=== PATIENT | male | born 1965 | race Caucasian/White ===

== ENCOUNTER 2019-12-31 13:35 | Emergency (ER) | payer MEDICAID, SELFPAY ==
[2019-12-31 14:06] VITALS: BP 177/113; PULSE 85; RESP 14; TEMP 37.7; O2SAT 98; BMI 25.3
--- NOTE | 2019-12-31 15:45 | USCV_ITS ---
Bg Mccauley Age: 54 Gender: M : 1965 Exam Date: 12/31/2019 16:07 Ordering Phys: David Gregory DO Technologist: Elissa Ernandez Exam Location: [facility] – [place] Indication: BROWN SCALY ARMS HISTORY: Upper extremity swelling. PROCEDURES: Venous duplex imaging was performed in bilateral upper extremities. The following venous structures were evaluated: internal jugular vein, subclavian vein, axillary vein, and brachial veins. In addition, the basilic vein, cephalic vein, radial vein, and ulnar vein. Serial compression, augmentation maneuvers, and spectral Doppler flow evaluation were performed. FINDINGS: No DVT seen in any vessel studies. IV rests in rt Cephalic vein. Flow below site is good Echolucent areas are noted bilaterally in the subcutaneous plane CONCLUSIONS No evidence of venous thrombosis in the above-mentioned identifiable veins on both sides Features of fluid retention/edema in the subcutaneous plane Dr Sae Farmer MD FAC (Electronically Signed) Final Date: 31 December 2019 18:07 S
--- NOTE | 2019-12-31 15:45 | USCV_ITS ---
Bg Mccauley Age: 54 Gender: M : 1965 Exam Date: 12/31/2019 16:31 Ordering Phys: David Gregory DO Technologist: Elissa Ernandez [place] [facility] [place] Indication: BOTH ARM ARE DRY AND DISCOLORED Risk Factors: Unknown Previous Vascular Surgery: None Right BP: 130.00 / Left BP: 134.00 / RIGHT LEFT PSV PSV (cm/s) (cm/s) Waveform Waveform Triphasic 137.4 Subclavian Proximal 164.7 Triphasic Triphasic 77.2 Subclavian Distal 177.2 Triphasic Triphasic 92.1 Axillary 144.3 Triphasic Triphasic 61.5 Brachial Proximal 84.6 Triphasic Triphasic 86.5 Brachial Mid 108.6 Triphasic Triphasic 101.9 Brachial at AC 81.7 Triphasic Triphasic 56.3 Radial Proximal 53.8 Triphasic Triphasic 63.4 Radial Mid 39.0 Triphasic Biphasic 27.9 Radial at Wrist 81.6 Biphasic Triphasic 48.1 Ulnar Proximal 81.7 Triphasic Triphasic 52.9 Ulnar Mid 80.7 Triphasic Biphasic 41.3 Ulnar at Wrist 46.9 Biphasic 1.0 Radial/Brachial Index 1.0 .94 Ulnar/Brachial Index .92 FINDINGS RT RADIAL 130 RT ULNA 126 LT RADIAL 130 LT ULNA 124 CONCLUSIONS Normal arterial Doppler waveforms and Doppler flow velocities bilaterally Normal RBIs and UBIs bilaterally No significant obstruction in the upper extremity arteries, based on the above findings Dr Sae Farmer MD [facility] (Electronically Signed) Final Date: 31 December 2019 17:55 S
--- NOTE | 2019-12-31 15:48 | W.ED.GENADLT ---
HPI - General Adult General: Chief complaint: General Medical Stated complaint: arm discoloration Time Seen by Provider: 12/31/19 15:34 History of Present Illness: HPI narrative: Patient has redness, swelling, and severely dried skin from the distal upper arm to the fingertips on both sides. Patient states this started approximately 2-3 weeks ago. Patient has no idea of the etiology. He denies any injury. Onset (ago): week(s) Location: left, right and upper extremity Radiation: non-radiation Severity: severe Associated symptoms: Reports no associated symptoms Review of Systems General: Reports: 10 or more systems reviewed and unremarkable except in HPI and below PFSH ED PFSH: Social History Smoking and tobacco status: never smoked Alcohol intake: never Physical Exam HENMT: COMMON NORMALS: normocephalic HEAD & SCALP: normocephalic Neck/C-Spine: COMMON NORMALS: full ROM, no meningeal signs and no JVD Resp: COMMON NORMALS: normal respiratory effort, No use of accessory muscles and clear to auscultation bilaterally AUSCULTATION: clear to auscultation bilaterally Cardio: COMMON NORMALS: no JVD, regular rate and regular rhythm RATE: regular rate RHYTHM: regular rhythm GI: COMMON NORMALS: Normal to inspection, nondistended, normoactive bowel sounds present Extremity: COMMON NORMALS: full ROM NARRATIVE EXTREMITY EXAM: Both of the patient's upper extremities from the distal arm to the fingertips are red, crusted, and edematous. Neuro: MENINGEAL SIGNS: Yes no meningeal signs Skin: GENERAL SKIN EXAM: crusts, dry skin and erythema Course Vital Signs: Vital signs: Vital Signs Temperature 99.8 F H 12/31/19 14:06 Pulse Rate 85 12/31/19 14:06 Respiratory Rate 14 12/31/19 14:06 Blood Pressure 177/113 12/31/19 14:06 Pulse Oximetry 98 12/31/19 14:06 MDM - General Adult MDM Narrative: Medical decision making narrative: Patient's arms from where a short sleeve shirt or T-shirt which indent the tips of the fingers are red and very scaly with a straw colored crust. I believe the patient suffered a sunburn and either from a ruptured bulla or from scratching he got a secondary infection and she has been given Ancef in the ER. I'll write him a prescription for amoxicillin 500 mg. Also prescription for Bactroban ointment. Instructed the patient to return to the emergency room in 5 days so I can reevaluate his arms to make sure that the treatment is helping. Patient is instructed to return to the emergency room sooner if his symptoms increase or has any other problems. Lab Data: Labs: Lab Results 12/31/19 12/31/19 12/31/19 Range/Units 16:00 16:00 16:00 WBC 7.7 (4.0-10.0) 10^3/ uL RBC 4.89 (4.1-5.3) 10^6/u L Hgb 16.1 (11.7-16.6) g/dL Hct 48.3 (42.0-52.0) % MCV 98.8 H (80-94) fL MCH 32.9 (28.0-34.0) pg MCHC 33.3 (30.0-36.0) g/dL RDW 11.9 L (12.1-15.1) % Plt Count 279 (130-400) 10^3/c mm MPV 10.2 (7.4-10.4) fL Neut % (Auto) 68.9 % Lymph % (Auto) 17.9 % [place] % (Auto) 6.3 % Eos % (Auto) 6.3 % Baso % (Auto) 0.5 % Neut # (Auto) 5.3 (1.8-7.7) 10^3/u L Lymph # (Auto) 1.4 (0.8-4.8) 10^3/u L [place] # (Auto) 0.5 (0.2-0.9) 10^3/u L Eos # (Auto) 0.5 (0.0-0.8) 10^3/u L Baso # (Auto) 0.0 (0.0-0.1) 10^3/u L Nucleated RBC % (a uto) 0 % Nucleated RBCs # 0.0 /100WBC Sodium 139 (136-145) mmol/L Potassium 4.3 (3.5-5.1) mmol/L Chloride 102 (98-107) mmol/L Carbon Dioxide 25 (22-29) mmol/L Anion Gap 16.3 (5-19) BUN 6 (6-20) mg/dL Creatinine 0.7 (0.7-1.2) mg/dL GFR Calculation 117.5 (90-130) mL/min Glucose 113 (65-115) mg/dL Calculated Osmolal ity 285 (285-295) mOsm/k g Lactate 1.0 (0.5-2.2) mmol/L Calcium 9.5 (8.5-10.5) mg/dL Total Bilirubin 1.9 H (0.15-1.2) mg/dL AST 22 (0-40) U/L ALT 22 (0-41) U/L Alkaline Phosphata se 74 (40-130) IU/L Total Protein 7.2 (6.6-8.7) g/dL Albumin 4.4 (3.5-5.2) g/dL Globulin 2.8 (1.3-4.6) g/dL Imaging Data^: Other Imaging: My impression: No evidence of venous or arterial vascular occlusion Discharge Plan Discharge Patient Disposition: Home, Self-Care Clinical Impression: Impetigo Cellulitis Qualifiers: Site of cellulitis: extremity Site of cellulitis of extremity: upper extremity Laterality: unspecified laterality Qualified Code(s): L03.119 - Cellulitis of unspecified part of limb Condition: Stable Prescriptions: New amoxicillin 500 mg capsule 500 mg PO TID 10 Days Qty: 30 RF: 0 mupirocin 2 % ointment 1 applic TOPICAL TID Qty: 22 RF: 2 Discharge Orders: Discharge Order (Routine); Ordered 12/31/19 Ordered By: David Gregory Coding Level of Care Code ED Youth Services Specialist for g Fwd Exam Detailed
[2019-12-31] MEDS: ceFAZolin 1,000 MG in sodium chloride 0.9% (plus) 50 ML 100 MG IV (16:27)
[2019-12-31 16:35] LABS: Basophils % 0.5 %; Eosinophils # 0.5 10^3/uL (0.0-0.8); Eosinophils % 6.3 %; Hematocrit 48.3 % (42.0-52.0); Hemoglobin 16.1 g/dL (11.7-16.6); Lymphocytes # 1.4 10^3/uL (0.8-4.8); Lymphocytes % 17.9 %; Mean Corpuscular HGB Conc 33.3 g/dL (30.0-36.0); Mean Corpuscular Hemoglobin 32.9 pg (28.0-34.0); Mean Corpuscular Volume 98.8 fL (80-94); Mean Platelet Volume 10.2 fL (7.4-10.4); Monocytes # 0.5 10^3/uL (0.2-0.9); Monocytes % 6.3 %; Neutrophils # 5.3 10^3/uL (1.8-7.7); Neutrophils % 68.9 %; Nucleated Red Blood Cells % 0 %; Platelet Count 279 10^3/cmm (130-400); Red Blood Count 4.89 10^6/uL (4.1-5.3); Red Cell Distribution Width 11.9 % (12.1-15.1); White Blood Count 7.7 10^3/uL (4.0-10.0)
[2019-12-31 16:45] LABS: Alanine Aminotransferase 22 U/L (0-41); Albumin Level 4.4 g/dL (3.5-5.2); Alkaline Phosphatase 74 IU/L (40-130); Anion Gap 16.3 (5-19); Aspartate Amino Transferase 22 U/L (0-40); Blood Urea Nitrogen 6 mg/dL (6-20); Calcium 9.5 mg/dL (8.5-10.5); Carbon Dioxide 25 mmol/L (22-29); Chloride 102 mmol/L (98-107); Globulin 2.8 g/dL (1.3-4.6); Glomerular Filtration Rate 117.5 mL/min (90-130); Glucose 113 mg/dL (65-115); Osmolality Calculated 285 mOsm/kg (285-295); Potassium 4.3 mmol/L (3.5-5.1); Sodium 139 mmol/L (136-145); Total Bilirubin 1.9 mg/dL (0.15-1.2); Total Protein 7.2 g/dL (6.6-8.7)
--- NOTE | 2019-12-31 16:56 | PC.NURSE ---
US IN ROOM FOR EXAM
[2019-12-31 17:56] VITALS: BP 155/100; PULSE 80; RESP 20; O2SAT 98
== END 2019-12-31 17:57 | disposition home or self-care (01) ==
PROVIDERS: Emergency Provider Family Medicine
DX: L01.00 Impetigo, unspecified (principal); L03.119 Cellulitis of unspecified part of limb
CPT/HCPCS: 12345; 36415; 80053; 83605; 85025; 87040; 93930; 93970; 96365; 99282; 99283; J0690

== ENCOUNTER 2021-03-20 16:41 | Inpatient (IN) | payer MEDICAID, SELFPAY ==
[2021-03-20 16:42] VITALS: BP 152/78; PULSE 130; RESP 18; TEMP 36.4; O2SAT 97; BMI 29.8
[2021-03-20 16:55] VITALS: BP 154/82; PULSE 126; RESP 18; O2SAT 92
--- NOTE | 2021-03-20 17:13 | XRR_ITS ---
PROCEDURE INFORMATION: Exam: XR Right Tibia and Fibula Exam date and time: 03/20/2021 5:13 PM Age: 55 years old Clinical indication: Pain; Lower leg; Right; Additional info: Rule out osteo TECHNIQUE: Imaging protocol: XR Right tibia and fibula. Views: 2 views. COMPARISON: No relevant prior studies available. FINDINGS: Bones/joints: Normal. Soft tissues: Soft tissue swelling. Superficial soft tissue irregularities. XR/XR tibia fibula RT 2V [id number] IMPRESSION: Negative for osteomyelitis.
--- NOTE | 2021-03-20 17:13 | XRR_ITS ---
PROCEDURE INFORMATION: Exam: XR Right Foot Exam date and time: 03/20/2021 5:13 PM Age: 55 years old Clinical indication: Swelling, leg or foot; Patient HX: Chronic leg wounds x 6 months; Smell and drainage and maggots and flies present also; Additional info: Osteo? TECHNIQUE: Imaging protocol: XR Right foot. Views: 1 or 2 views. COMPARISON: CR (LOW EXM, ) 03/20/2021 5:28 PM FINDINGS: Bones/joints: There is no definite bony erosion or periostitis to suggest osteomyelitis. Bones are demineralized which limits evaluation. No evidence of acute fracture dislocation. Minimal degenerative changes. Posterior calcaneal enthesophyte. Soft tissues: There is generalized soft tissue swelling. This is greatest along the dorsal foot. XR/XR foot RT 2V [id number] IMPRESSION: Soft tissue edema without definite findings osteomyelitis.
--- NOTE | 2021-03-20 17:13 | XRR_ITS ---
PROCEDURE INFORMATION: Exam: XR Left Tibia and Fibula Exam date and time: 03/20/2021 5:13 PM Age: 55 years old Clinical indication: Pain; Lower leg; Left; Additional info: Rule out osteo TECHNIQUE: Imaging protocol: XR Left tibia and fibula. Views: 2 views. COMPARISON: No relevant prior studies available. FINDINGS: Bones/joints: Normal. Soft tissues: Soft tissue swelling. Superficial soft tissue irregularities. Possible ulcerations. XR/XR tibia fibula LT 2V 11542 IMPRESSION: Negative for osteomyelitis.
--- NOTE | 2021-03-20 17:13 | XRR_ITS ---
PROCEDURE INFORMATION: Exam: XR Left Foot Exam date and time: 03/20/2021 5:13 PM Age: 55 years old Clinical indication: Pain; Foot; Left; Additional info: Oste? TECHNIQUE: Imaging protocol: XR Left foot. Views: 1 or 2 views. COMPARISON: CR (LOW EXM, ) 03/20/2021 5:34 PM FINDINGS: Bones/joints: No acute fractures. Joint spaces have anatomic alignment. No focal lytic bone lesion. No focal osseous erosion identified. No significant joint space arthritis. Soft tissues: Multiple nailbed deformities. Generalized soft tissue swelling. XR/XR foot LT 2V [id number] IMPRESSION: No convincing plain film radiographic evidence of osteomyelitis.
[2021-03-20 17:28] LABS: Basophils # 0.1 10^3/uL (0.0-0.1); Basophils % 0.8 %; Eosinophils # 0.3 10^3/uL (0.0-0.8); Eosinophils % 3.3 %; Hematocrit 44.9 % (42.0-52.0); Hemoglobin 14.4 g/dL (11.7-16.6); Lymphocytes # 1.6 10^3/uL (0.8-4.8); Lymphocytes % 15.3 %; Mean Corpuscular HGB Conc 32.1 g/dL (30.0-36.0); Mean Corpuscular Hemoglobin 31.3 pg (28.0-34.0); Mean Corpuscular Volume 97.6 fl (80-94); Mean Platelet Volume 8.7 fL (7.4-10.4); Monocytes # 0.9 10^3/uL (0.2-0.9); Monocytes % 8.8 %; Neutrophils # 7.28 10^3/uL (1.8-7.7); Neutrophils % 71.6 %; Nucleated Red Blood Cells % 0 %; Platelet Count 418 10^3/cmm (130-400); Red Cell Distribution Width 12.1 % (12.1-15.1); White Blood Count 10.2 10^3/uL (4.0-10.0)
[2021-03-20 17:50] LABS: Anion Gap 15.8 (5-19); Blood Urea Nitrogen 12 mg/dL (6-20); C Reactive Protein 89.9 mg/L (0.0-4.9); Calcium 8.3 mg/dL (8.5-10.5); Carbon Dioxide 24 mmol/L (22-29); Chloride 103 mmol/L (98-107); Creatinine Clr Calc Pharmacy 145.8425; Glomerular Filtration Rate 117.1 mL/min (90-130); Glucose 100 mg/dL (65-115); Osmolality Calculated 288 mOsm/kg (285-295); Potassium 3.8 mmol/L (3.5-5.1); Sodium 139 mmol/L (136-145)
[2021-03-20 18:13] LABS: Lactate (Lactic Acid level) 2.1 mmol/L (0.5-2.2)
[2021-03-20] MEDS: vancomycin 1,000 MG in sodium chloride 0.9% 250 ML 250 MG IV (18:18)
[2021-03-20] MEDS: sodium chloride 0.9% 1,000 ML 999 ML IV (18:18)
[2021-03-20 18:23] LABS: Erythrocyte Sedimentation Rate 75 mm/hr (0-10)
--- NOTE | 2021-03-20 18:29 | W.ED.GENADLT ---
HPI - General Adult General: Chief complaint: Extremity Problem,Nontraumatic Stated complaint: RIGHT LEG PAIN Time Seen by Provider: 03/20/21 16:59 History of Present Illness: HPI narrative: Patient is a 55-year-old male with a history of chronic leg wounds who presents the emergency room after his landlord alerted EMS and patient was unable to get out of bed. Patient says that he has not been been receiving any wound care in his legs which have been present for 6 months now. FPatient cannot over the last time he has had wound care on his legs. Patient denies any fever/chills, reports pain in the legs, drainage and smell as well as maggots and flies. Onset:chronic Duration:ongoing Location:home Severity:severe Review of Systems Narrative: Constitutional: No fever, no chills. HEENT: No vision changes CV: No chest pain, no palpitations PULM: no cough, no dyspnea. GI: No abdominal pain, no N/V/D. : No dysuria MSKEL: No muscle pain SKIN: No new rashes, no lesions. NEURO: No headache, no focal weakness. HEME: No visible bruises PSYCH: Normal mood PFSH ED PFSH: Medical History (Updated 03/20/21 @ 19:44 by Brittani Ac MD) No pertinent family history Surgical History (Updated 03/20/21 @ 19:44 by Brittani Ac MD) No pertinent past surgical history Social History Smoking and tobacco status: never smoked Alcohol intake: never Physical Exam Narrative: EXAM NARRATIVE: Head: Atraumatic Eyes: PERRL, conjunctiva without injection ENT: Mucous membrane moist NECK: Supple, ROM intact LUNGS: LCTAB, no crackles/rhonchi CV: Tacyhcardia ABDOMEN: Soft, nontender in all quadrants EXTREMITY: 3+ LE swelling with festering wounds with maggots and flies in the RLE above the ankle SKIN: No rash or erythema NEURO: Awake and alert, no focal motor deficits PSYCH: Normal mood and affect Course Vital Signs: Vital signs: Vital Signs Temperature 97.6 F 03/20/21 16:42 Pulse Rate 115 H 03/20/21 20:54 Respiratory Rate 18 03/20/21 19:21 Blood Pressure 138/75 03/20/21 20:54 Pulse Oximetry 95 03/20/21 20:54 MDM - General Adult MDM Narrative: Medical decision making narrative: 55-year-old male presents emergency room with chronic right lower extremity wound infection. On exam, patient is hemodynamically stable, afebrile noted to be tachycardic to the 130s. No suspicion of acute alcohol withdrawal as patient does not have any signs of tremor. Patient denies any history of alcohol use. Likely source of tachycardia secondary to underlying bacteremia/chronic wound infection. WBC of 10.2. CRP is elevated. No signs of osteomyelitis on x-ray and evaluation. Given smell of Pseudomonas, will cover with Vanco and Zosyn today. Patient received IVF, HR improved to the 120s. Case discussed with Dr. Hensley from Podiatry who will follow patient. Disposition: Admission Lab Data: Labs: Lab Results 03/20/21 03/20/21 03/20/21 Range/Units 17:13 17:13 17:13 WBC 10.2 H (4.0-10.0) 10^3/ uL RBC 4.60 (4.1-5.3) 10^6/u L Hgb 14.4 (11.7-16.6) g/dL Hct 44.9 (42.0-52.0) % MCV 97.6 H (80-94) fl MCH 31.3 (28.0-34.0) pg MCHC 32.1 (30.0-36.0) g/dL RDW 12.1 (12.1-15.1) % Plt Count 418 H (130-400) 10^3/c mm MPV 8.7 (7.4-10.4) fL Neut % (Auto) 71.6 % Lymph % (Auto) 15.3 % [place] % (Auto) 8.8 % Eos % (Auto) 3.3 % Baso % (Auto) 0.8 % Neut # (Auto) 7.28 (1.8-7.7) 10^3/u L Lymph # (Auto) 1.6 (0.8-4.8) 10^3/u L [place] # (Auto) 0.9 (0.2-0.9) 10^3/u L Eos # (Auto) 0.3 (0.0-0.8) 10^3/u L Baso # (Auto) 0.1 (0.0-0.1) 10^3/u L Nucleated RBC % (a uto) 0 % Nucleated RBCs # 0.0 /100WBC ESR 75 H (0-10) mm/hr PT (12.1-14.9) SECO NDS INR (0.8-1.2) APTT (23.9-36.7) SECO NDS Sodium 139 (136-145) mmol/L Potassium 3.8 (3.5-5.1) mmol/L Chloride 103 (98-107) mmol/L Carbon Dioxide 24 (22-29) mmol/L Anion Gap 15.8 (5-19) BUN 12 (6-20) mg/dL Creatinine 0.7 (0.7-1.2) mg/dL GFR Calculation 117.1 (90-130) mL/min Glucose 100 (65-115) mg/dL Calculated Osmolal ity 288 (285-295) mOsm/k g Lactate (0.5-2.2) mmol/L Calcium 8.3 L (8.5-10.5) mg/dL C-Reactive Protein 89.9 H (0.0-4.9) mg/L 03/20/21 03/20/21 Range/Units 17:17 17:34 WBC (4.0-10.0) 10^3/ uL RBC (4.1-5.3) 10^6/u L Hgb (11.7-16.6) g/dL Hct (42.0-52.0) % MCV (80-94) fl MCH (28.0-34.0) pg MCHC (30.0-36.0) g/dL RDW (12.1-15.1) % Plt Count (130-400) 10^3/c mm MPV (7.4-10.4) fL Neut % (Auto) % Lymph % (Auto) % [place] % (Auto) % Eos % (Auto) % Baso % (Auto) % Neut # (Auto) (1.8-7.7) 10^3/u L Lymph # (Auto) (0.8-4.8) 10^3/u L [place] # (Auto) (0.2-0.9) 10^3/u L Eos # (Auto) (0.0-0.8) 10^3/u L Baso # (Auto) (0.0-0.1) 10^3/u L Nucleated RBC % (a uto) % Nucleated RBCs # /100WBC ESR (0-10) mm/hr PT 13.50 (12.1-14.9) SECO NDS INR 1.00 (0.8-1.2) APTT 26.1 (23.9-36.7) SECO NDS Sodium (136-145) mmol/L Potassium (3.5-5.1) mmol/L Chloride (98-107) mmol/L Carbon Dioxide (22-29) mmol/L Anion Gap (5-19) BUN (6-20) mg/dL Creatinine (0.7-1.2) mg/dL GFR Calculation (90-130) mL/min Glucose (65-115) mg/dL Calculated Osmolal ity (285-295) mOsm/k g Lactate 2.1 (0.5-2.2) mmol/L Calcium (8.5-10.5) mg/dL C-Reactive Protein (0.0-4.9) mg/L Imaging Data^: Other Imaging: Radiologist's impression: [address] [id number] ReportSigned Patient: Bg Mccauley #: [id number]: 1965Acct#:[id number]/Sex: 55 / MADM Date: 03/20/21Loc: ERRoom/Bed:Attending Dr: Ordering Provider/Ordering MD: Sunil Carreno MD Date of Service: 03/20/21 Procedure(s): XR tibia fibula RT 2V 96393 Accession Number(s): [id number] Report Number: [id number] PROCEDURE INFORMATION: Exam: XR Right Tibia and Fibula Exam date and time: 03/20/2021 5:13 PM Age: 55 years old Clinical indication: Pain; Lower leg; Right; Additional info: Rule out osteo TECHNIQUE: Imaging protocol: XR Right tibia and fibula. Views: 2 views. COMPARISON: No relevant prior studies available. FINDINGS: Bones/joints: Normal. Soft tissues: Soft tissue swelling. Superficial soft tissue irregularities. XR/XR tibia fibula RT 2V [id number] IMPRESSION: Negative for osteomyelitis. Dictated By:Judy Estevez By:Judy Estevez Date/Time:03/20/213DD/ [address] [address]PHet ReportSigned Patient: Bg Mccauley #: [id number]: 1965Acct#:[id number]/Sex: 55 / MADM Date: 03/20/21Loc: ERRoom/Bed:Attending Dr: Ordering Provider/Ordering MD: Sunil Carreno MD Date of Service: 03/20/21 Procedure(s): XR tibia fibula LT 2V 62781 Accession Number(s): [id number] Report Number: [id number] PROCEDURE INFORMATION: Exam: XR Left Tibia and Fibula Exam date and time: 03/20/2021 5:13 PM Age: 55 years old Clinical indication: Pain; Lower leg; Left; Additional info: Rule out osteo TECHNIQUE: Imaging protocol: XR Left tibia and fibula. Views: 2 views. COMPARISON: No relevant prior studies available. FINDINGS: Bones/joints: Normal. Soft tissues: Soft tissue swelling. Superficial soft tissue irregularities. Possible ulcerations. XR/XR tibia fibula LT 2V [id number] IMPRESSION: Negative for osteomyelitis. Dictated By:Judy Estevez By:Judy Estevez Date/Time:03/20/21D/ 20 Discharge Plan Discharge Patient Disposition: Admitted As Inpatient Clinical Impression: Complicated wound infection Condition: Stable Coding Level of Care Code ED Shell Sieve Operator for She Balderas
[2021-03-20 18:48] LABS: Partial Thromboplastin Time 26.1 SECONDS (23.9-36.7)
[2021-03-20 19:21] VITALS: BP 148/77; PULSE 122; RESP 18; O2SAT 94
[2021-03-20] MEDS: piperacillin-tazobactam 4.5 GM in sodium chloride 0.9% (plus) 50 ML IV (19:36)
--- NOTE | 2021-03-20 19:41 | P.HP_ITS ---
Providers/Chief Complaint Chief Complaint: RIGHT LEG PAIN History of Present Illness 54-year-old with a past medical history significant for chronic bilateral lower extremity venous stasis ulcers with ongoing areas of infection who is presenting to hospital for evaluation. Patient. Was noted to have extensive wounds with scaly erythematous lesion. Patient noted fever, chills increasing edema. Patient is a very poor historian however in review of records he was seen at urgent care on 12/30 during which time he was referred to ER however it appears patient did not follow instructions. Laboratory workup on arrival to emergency room showed a WBC of 10.2, hemoglobin of 14.4, hematocrit 44.9 and platelet count of 418. ESR 75 INR 1. Sodium 139, potassium 3.8, chloride 103, bicarb 24, BUN 12 and creatinine of 0.7. CRP of 89.9. Multiple x-rays were taken a bilateral lower extremities elevation did not show any evidence of acute fracture or osteomyelitis. Inferior occurs patient did have a venous and arterial study performed on 12/30 both of which did not show any evidence of acute DVT or evidence of peripheral vascular disease. Initial vital signs on arrival showed a blood pressure 177/113, temperature of 99.8?, heart rate of 80, respiratory rate of 20 and oxygen saturation 98% on room air. Review of Systems General: Reports: 10 or more systems reviewed and unremarkable except in HPI and below Medications/Allergies Home Medications Medication Instructions Recorded Confirmed Last Taken Type No Known Home Medications 03/20/21 03/20/21 Unknown History Allergies Allergy/AdvReac Type Severity Reaction Status Date / Time No Known Allergies Allergy Verified 12/31/19 13:04 PFSH Acute PFSH: Medical History (Updated 03/20/21 @ 19:44 by Brittani Ac MD) No pertinent family history Surgical History (Updated 03/20/21 @ 19:44 by Brittani Ac MD) No pertinent past surgical history Social History Smoking and tobacco status: never smoked Alcohol intake: never Vitals/I&O/Wt Last Vital Signs Temp 97.6 F 03/20/21 16:42 Pulse 122 H 03/20/21 19:21 Resp 18 03/20/21 19:21 BP 148/77 03/20/21 19:21 Pulse Ox 94 03/20/21 19:21 Weight last 48 hrs Weight 99.79 kg Physical Exam Narrative: EXAM NARRATIVE: general : Deshelved appearance HEENT: Grossly unremarkable CVS: NSR Chest: Non-labored respiration Abd: Non-distended Ext: Picture noted below- patient approved photo. Foul smelling. Data : 03/20/21 17:13 03/20/21 17:13 Micro: Microbiology 03/20/21 17:28 Blood Culture - Preliminary Blood SPECIMEN COLLECTED 03/20/21 17:34 Blood Culture - Preliminary Blood SPECIMEN COLLECTED A&P Assessment and plan (1) Lower extremity cellulitis: Status: Acute (2) Chronic venous stasis dermatitis of both lower extremities: Status: Acute (3) Complicated wound infection: Status: Acute Additional A&P Information Patient is noted to have extensive bilateral lower extremity wounds with surrounding cellulitis. continue on vancomycin and Zosyn pharmacy to dose. Blood cultures x2 drawn in ER. Obtain wound cultures from areas of draining purulent fluid. Will likely require general surgery consultation with possible need for debridement. Tylenol, [place], morphine p.r.n. for pain control. Repeat CBC in a.m.. Procalcitonin a.m.. Will obtain echocardiogram. May require gentle diuresis. Labs currently stable. Repeat CMP in a.m.. Will initiate Lovenox 40 mg subcu daily for DVT prophylaxis. Attestations Medical Necessity Statement*: Patient will likely require a 2 midnight stay in hospital for evaluation and treatment of bilateral lower extremity cellulitis with extensive wounds. Time Spent in Patient Care: Greater than 35 minutes (>than 50% of time spent in counselling and/or direct pt care on unit) . Coding Level of Care Code Acute Inspector Soldering for She Balderas Diagnoses Lower extremity cellulitis L03.119 Chronic venous stasis dermatitis of both lower extremities I87.2 Complicated wound infection T14.8XXA; L08.9
[2021-03-20] MEDS: enoxaparin 40 mg/0.4 mL Syringe SUBCUT (20:16)
[2021-03-20 20:54] VITALS: BP 138/75; PULSE 115; O2SAT 95
[2021-03-20 21:21] LABS: SARS Covid-2 Antigen Negative (Negative)
[2021-03-20 21:40] VITALS: BMI 26.7
[2021-03-20 22:00] VITALS: PULSE 108
--- NOTE | 2021-03-20 22:13 | PC.PHAR ---
Vancomycin is dosed at 1250mg IVPB every 8 hours to produce a predicted trough level of 13.01 (population based pharmacokinetic analysis). A trough level has been ordered from the lab to be obtained before the fourth dose to confirm and adjust if needed. The Zosyn is dosed at 3.375gm IVPB every 8 hours on basis of creatinine clearance of 145.84, each dose to be infused over 4 hours per extended infusion protocol.
[2021-03-21] VITALS (11 sets, daily range): BP systolic 112–142; BP diastolic 62–71; PULSE 90–109; RESP 16–18; TEMP 36.4–37.1; O2SAT 95–99
--- NOTE | 2021-03-21 00:47 | PC.NURSE ---
Skin Assessment Patient got to floor at 21:10 from ER. Patient had open wound on right lower leg with live maggots crawling in it and on the skin around it. Bilateral lower extremities have dry scaling skin and pitting edema. Bilateral arms have dry scaling skin on them. Used sterile water to clean all four extremities and get off as much dry skin as possible. Used sterile water to wash out maggots yet more were coming out of the wound after washing them out. Physician contacted regarding if there is anything else that needs to be done. Physician said the only thing that could be done tonight is place chucks under the legs. If maggots continue to come out may wrap joe with loose coban around the right leg to try to keep them under control.
[2021-03-21] MEDS: vancomycin 1,250 MG/250 ML PIGGYBACK 250 MG IV ×3 (02:08→18:46)
[2021-03-21] MEDS: piperacillin-tazobactam 3.375 GM in sodium chloride 0.9% (plus) 50 ML IV ×3 (03:25→20:07)
[2021-03-21] MEDS: pantoprazole DR 40 mg Tablet PO (09:15)
[2021-03-21] MEDS: HYDROcodone-acetaminophen 5-325 mg Tablet 1 TAB PO (09:26)
[2021-03-21 09:50] LABS: Basophils # 0.1 10^3/uL (0.0-0.1); Basophils % 0.9 %; Eosinophils # 0.4 10^3/uL (0.0-0.8); Eosinophils % 5.1 %; Hematocrit 37.3 % (42.0-52.0); Hemoglobin 11.8 g/dL (11.7-16.6); Lymphocytes # 1.3 10^3/uL (0.8-4.8); Lymphocytes % 17.8 %; Mean Corpuscular HGB Conc 31.6 g/dL (30.0-36.0); Mean Corpuscular Hemoglobin 30.8 pg (28.0-34.0); Mean Corpuscular Volume 97.4 fl (80-94); Mean Platelet Volume 8.4 fL (7.4-10.4); Monocytes # 0.7 10^3/uL (0.2-0.9); Monocytes % 8.9 %; Neutrophils # 5.02 10^3/uL (1.8-7.7); Neutrophils % 66.9 %; Nucleated Red Blood Cells % 0 %; Platelet Count 336 10^3/cmm (130-400); Red Blood Count 3.83 10^6/uL (4.1-5.3); Red Cell Distribution Width 12.1 % (12.1-15.1); White Blood Count 7.5 10^3/uL (4.0-10.0)
[2021-03-21 10:19] LABS: Lactic Sepsis W/Reflex 0.8 mmol/L (0.5-2.2)
[2021-03-21 10:30] LABS: Procalcitonin 0.22 ng/mL (0-0.5); Thyroid Stimulating Hormone 2.44 uIU/mL (0.27-4.20)
[2021-03-21 10:41] LABS: Alanine Aminotransferase 9 U/L (0-41); Albumin Level 2.2 g/dL (3.5-5.2); Alkaline Phosphatase 63 IU/L (40-130); Aspartate Amino Transferase 15 U/L (0-40); Blood Urea Nitrogen 10 mg/dL (6-20); Calcium 7.8 mg/dL (8.5-10.5); Carbon Dioxide 25 mmol/L (22-29); Chloride 105 mmol/L (98-107); Chol HDL Ratio 2.92 mg/dL (1.0-5.00); Cholesterol 114 mg/dL (0-200); Globulin 3.6 g/dL (1.3-4.6); Glomerular Filtration Rate 139.9 mL/min (90-130); Glucose 85 mg/dL (65-115); HDL Cholesterol 39 mg/dL (60-100); LDL Cholesterol Calculated 63 mg/dL (50-129); LDL HDL Ratio 1.62 RATIO (0.00-3.22); Magnesium 1.9 mg/dL (1.7-2.3); Osmolality Calculated 286 mOsm/kg (285-295); Sodium 139 mmol/L (136-145); Total Bilirubin 0.9 mg/dL (0.15-1.2); Total Protein 5.8 g/dL (6.6-8.7); Triglycerides 58 mg/dL (0-150)
[2021-03-21 11:59] LABS: Estmated Average Glucose 88; Hemoglobin A1C 4.7 % (4.0-6.0)
[2021-03-21] MEDS: morphine 4 mg/mL SDV 1 mL 2 MG IVP (13:18)
--- NOTE | 2021-03-21 17:35 | PM.PN ---
Subjective Subjective: Interval history: Patient continues require significant wound care. Noted below. No fevers. Medications: Reviewed: Yes Vitals/I&O/Wt Last Vital Signs Temp 98.2 F 03/21/21 15:25 Pulse 106 H 03/21/21 15:25 Resp 16 03/21/21 15:25 BP 112/65 03/21/21 15:25 Pulse Ox 99 03/21/21 15:25 03/21/21 03/21/21 03/21/21 06:59 14:59 22:59 Intake Total 1590.208 / 1590.208 900 / 900 Output Total 500 / 500 325 / 325 Balance 1090.208 / 1090.208 900 / 900 -325 / 575 Weight last 48 hrs Weight 83.098 kg Weight 89.584 kg Weight 99.79 kg Physical Exam Narrative: EXAM NARRATIVE: general : Deshelved appearance HEENT: Grossly unremarkable CVS: NSR Chest: Non-labored respiration Abd: Non-distended Ext: Picture noted below- patient approved photo. Foul smelling. 03/21 pics 03/20 pics Data : 03/21/21 09:32 03/21/21 09:32 Micro: Microbiology 03/20/21 23:40 Gram Stain - Final Leg - Right 03/20/21 17:28 Blood Culture - Preliminary Blood SPECIMEN COLLECTED 03/20/21 17:34 Blood Culture - Preliminary Blood SPECIMEN COLLECTED A&P Assessment and plan (1) Lower extremity cellulitis: Status: Acute (2) Chronic venous stasis dermatitis of both lower extremities: Status: Acute (3) Complicated wound infection: Status: Acute Additional A&P Information Continue on vancomycin and Zosyn pharmacy to dose. Blood cultures x2 - NGTD. F/u on Wound cultures from areas of draining purulent fluid. Will likely require general surgery consultation with possible need for debridement. Tylenol, [place], morphine p.r.n. for pain control. Repeat CBC in a.m.. Follow up on ECHO May Consider adding lasix PRN Labs currently stable. Repeat CMP in a.m.. Continue Lovenox 40 mg subcu daily for DVT prophylaxis. Continue Protonix 40 mg PO daily for GI ppx Attestations Medical Necessity Statement*: Require further hospitalization for management of extensive bilateral lower extremity Infectious Time Spent in Patient Care: Greater than 35 minutes (>than 50% of time spent in counselling and/or direct pt care on unit). 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
--- NOTE | 2021-03-21 18:43 | P.CONIM_ITS ---
Providers/Reason For Consult Consulting Physician/Specialty*: Oral Hensley D.P.M. podiatry Reason for Consult*: Lower extremity venous ulceration and cellulitis Attending Physician: Brittani Ac History of Present Illness History of Present Illness Bg Mccauley is a 55 year old male admitted to hospital service for bilateral lower extremity cellulitis and venous stasis ulceration to the right lower extremity. Patient states that several days prior to this hospitalization he was ambulatory, his landlord checked on him and saw him in bed unable to get out and called 911 he came to the ED via EMS. Patient states that he lives at home alone however he does have family in the area. He endorses some tenderness to the right leg wound states he is able to move and lift his leg relatively comfortably. States that he has had swelling and complications with leg sores ongoing for many months. Patient denies any subjective nausea, vomiting, fever, chills, shortness of breath or chest pain. Review of Systems General: Reports: 10 or more systems reviewed and unremarkable except in HPI and below Const: Denies: fever(s) or chills Card: Denies: chest pain or palpitations Resp: Denies: productive cough GI: Denies: abdominal pain, nausea or vomiting : Denies: flank pain Musc: Reports: extremity swelling, joint pain, joint stiffness, limited range of motion and deformity Skin/Breast: Reports: erythema, skin tenderness, skin swelling, sores, lesions, changes in skin color, nail changes and change in hair Neuro: Reports: numbness in extremities, sensory changes and difficulty walking Psych: Denies: suicidal ideation Nathan/Lymph: Denies: easy bruising Meds/Allergies Home Medications and Allergies Home Medications Medication Instructions Recorded Confirmed Last Taken Type No Known Home Medications 03/20/21 03/20/21 Unknown History Allergies Allergy/AdvReac Type Severity Reaction Status Date / Time No Known Allergies Allergy Verified 12/31/19 13:04 Current Medications Current Medications Generic Name Dose Route Start Last Admin Trade Name Freq PRN Reason Stop Dose Admin Hydrocodone Bitart/Acetaminophen 1 tab 03/20/21 19:36 03/21/21 09:26 Hydrocodone-Acetaminophen 5-325 Mg Tablet PO 1 tab Q4H PRN Administration MODERATE TO SEVERE PAIN Enoxaparin Sodium 40 mg 03/20/21 19:45 03/20/21 20:16 Enoxaparin 40 Mg/0.4 Ml Syringe SUBCUT 40 mg Q24H GENEVA Administration Piperacillin Sod/Tazobactam 50 mls @ 12.5 mls/hr 03/21/21 02:00 03/21/21 1 4:43 Sod 3.375 gm/ Sodium Chloride IV Infused Q8H GENEVA Infusion Protocol As Directed Vancomycin/PEG/NADA/Lysine/Water 1,250 mg in 250 mls @ 250 mls/hr 03/21/21 03:00 03/21/21 13:11 Vancocin IV Infused Q8H GENEVA Infusion Morphine Sulfate 2 mg 03/20/21 19:36 03/21/21 13:18 Morphine 4 Mg/Ml Sdv 1 Ml IVP 2 mg Q4H PRN Administration SEVERE PAIN Pantoprazole Sodium 40 mg 03/21/21 09:00 03/21/21 09:[address] 40 Mg Tablet PO 40 mg DAILY GENEVA Administration PFSH Acute PFSH: Medical History (Updated 03/21/21 @ 19:27 by Oral Hensley DPM) No pertinent family history Surgical History (Updated 03/20/21 @ 19:44 by Brittani Ac MD) No pertinent past surgical history Social History Smoking and tobacco status: never smoked Alcohol intake: never Vitals/I&O/Wt Last Vital Signs Temp 98.2 F 03/21/21 15:25 Pulse 106 H 03/21/21 15:25 Resp 16 03/21/21 15:25 BP 112/65 03/21/21 15:25 Pulse Ox 99 03/21/21 15:25 03/21/21 03/21/21 03/21/21 06:59 14:59 22:59 Intake Total 1590.208 / 1590.208 900 / 900 Output Total 500 / 500 325 / 325 Balance 1090.208 / 1090.208 900 / 900 -325 / 575 Weight last 48 hrs Weight 183 lb 3.2 oz Weight 197 lb 8 oz Weight 220 lb Physical Exam Narrative: EXAM NARRATIVE: GENERAL: Patient is alert and oriented ?3 and in no acute distress. The following is a focused bilateral lower extremity exam. VASCULAR: Dorsalis pedis palpable +2 left and right foot. Posterior tibial kathy brii palpable +1 left and right likely secondary to edema. Capillary refill time less than 3 seconds to the distal hallux bilaterally. +2 pitting edema tested at the lower one third of the anterior tibial crest at the left lower extremity and +3 pitting edema to the right. Decreased pedal hair growth. NEUROLOGICAL: Protective sensation intact 5/10 sites, tested with [place] Kati monofilament to bilateral feet. DERMATOLOGICAL: Venous ulceration to the right leg in a circumferential linear fashion this is a grade 2 ulcer with serous drainage, no tucker purulence. Erythema to the bilateral lower extremities right greater than left also rubor present. Dystrophic toenail is x10. Dry flaky skin on bilateral lower extremities. MUSCULOSKELETAL: Tenderness with debridement of right leg wound. Muscle strength the lower extremities are 5/5 in all 3 cardinal planes to the bilateral foot and ankle. Ankle joint dorsiflexion to neutral. Data Micro: Micro: Microbiology 03/20/21 17:28 Blood Culture - Pr eliminary Blood NEGATIVE TO MALISSA E 03/20/21 17:34 Blood Culture - Pr eliminary Blood NEGATIVE TO MALISSA E 03/20/21 23:40 Gram Stain - Final Leg - Right A&P Assessment and plan (1) Lower extremity cellulitis: Status: Acute Qualifiers: Laterality: right Qualified Code(s): L03.115 - Cellulitis of right lower limb (2) Chronic venous stasis dermatitis of both lower extremities: Status: Acute (3) PVD (peripheral vascular disease): Status: Acute 55-year-old male with venous ulceration and cellulitis to the right lower extremity White blood count 10.2 with elevated CRP and sed rate 89.9 and 75 respectively on admission 03/20/2021. Ankle-brachial index 1.0 left and right 12/31/2019. Radiology report on left and right foot and tib-fib x-rays negative for osteomyelitis. Patient is afebrile with no leukocytosis today 03/21/2021. He is responding well to empiric IV antibiotics. Patient's edema is likely a mixed etiology of venous insufficiency and lymphedema. -Performed debridement of right venous ulceration down to and including subcutaneous tissue and fat layer, patient tolerated with some minor discomfort, no pain post debridement subjectively. -Applied bilateral lower extremity Unna boot wraps for venous insufficiency with ulceration. Base layer wound dressing to the right leg Maxorb AG followed by Unna flex paste wrap, Kerlix, cast padding and Coban. -I do not anticipate any surgical debridement during this hospitalization, patient's wounds are stable and responding to antibiotic therapy -From podiatry standpoint in regards to his lower extremity wounds he is okay for discharge would recommend oral antibiotics on discharge. -Recommend wound care referral and follow-up in wound care clinic moving forward would also benefit from home health to assist with dressing supplies and lymphedema wraps -His current lymphedema wraps applied 03/21/2021 by myself can remain in place for the next 3 days, should he still remain hospitalized beyond 3 days I will change them while inpatient. I appreciate the opportunity to participate in patient's care please contact me with any questions cell phone [phone]. 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
[2021-03-21] MEDS: enoxaparin 40 mg/0.4 mL Syringe SUBCUT (20:07)
[2021-03-22] VITALS (9 sets, daily range): BP systolic 118–156; BP diastolic 62–71; PULSE 78–94; RESP 15–19; TEMP 36.8–37.4; O2SAT 95–99
[2021-03-22 03:14] LABS: Basophils # 0.1 10^3/uL (0.0-0.1); Basophils % 0.7 %; Eosinophils # 0.7 10^3/uL (0.0-0.8); Eosinophils % 9.7 %; Hematocrit 31.7 % (42.0-52.0); Hemoglobin 10.1 g/dL (11.7-16.6); Lymphocytes # 1.7 10^3/uL (0.8-4.8); Lymphocytes % 22.6 %; Mean Corpuscular HGB Conc 31.9 g/dL (30.0-36.0); Mean Corpuscular Hemoglobin 31.5 pg (28.0-34.0); Mean Corpuscular Volume 98.8 fl (80-94); Mean Platelet Volume 8.8 fL (7.4-10.4); Monocytes # 0.8 10^3/uL (0.2-0.9); Monocytes % 9.9 %; Neutrophils # 4.28 10^3/uL (1.8-7.7); Neutrophils % 56.7 %; Nucleated Red Blood Cells % 0 %; Platelet Count 308 10^3/cmm (130-400); Red Blood Count 3.21 10^6/uL (4.1-5.3); Red Cell Distribution Width 12.2 % (12.1-15.1); White Blood Count 7.6 10^3/uL (4.0-10.0)
[2021-03-22 03:27] LABS: Vancomycin Trough 21.7 ug/mL (10-15)
[2021-03-22 03:28] LABS: Alanine Aminotransferase 6 U/L (0-41); Albumin Level 2.1 g/dL (3.5-5.2); Alkaline Phosphatase 57 IU/L (40-130); Aspartate Amino Transferase 10 U/L (0-40); Blood Urea Nitrogen 15 mg/dL (6-20); Calcium 7.5 mg/dL (8.5-10.5); Carbon Dioxide 25 mmol/L (22-29); Chloride 107 mmol/L (98-107); Globulin 2.6 g/dL (1.3-4.6); Glomerular Filtration Rate 117.1 mL/min (90-130); Glucose 96 mg/dL (65-115); Osmolality Calculated 289 mOsm/kg (285-295); Sodium 139 mmol/L (136-145); Total Bilirubin 0.4 mg/dL (0.15-1.2); Total Protein 4.7 g/dL (6.6-8.7)
--- NOTE | 2021-03-22 03:49 | PC.PHAR ---
Vancomycin trough before four doses at 1250mg IVPB every 8 hours is 21.7. Dosage is reduced to 1250mg IVPB every 12 hours with another trough ordered before the fourth dose at this reduced rate.
[2021-03-22] MEDS: piperacillin-tazobactam 3.375 GM in sodium chloride 0.9% (plus) 50 ML IV ×3 (04:04→22:42)
--- NOTE | 2021-03-22 05:27 | PC.NURSE ---
Shift Note Frequent safety and comfort rounds continue. Orders and/or nursing care completed as indicated. Patient monitored for response to intervention and treatment(s). Education provided includes side effects and usage of lovenox. Patient verbalized understanding. patient rested well throughout this shift and denied any pain to bilateral lower extremities. Patient is currently resting comfortably in bed watching television. Will continue to monitor.
--- NOTE | 2021-03-22 06:00 | USCV_ITS ---
Bg Mccauley Age: 55 Gender: M : 1965 Exam Date: 03/21/2021 10:22 Ordering Phys: Brittani Ac MD Technologist: Elissa Ernandez Exam Location: [facility] [place] Indication: LEGS SWELLING BP: 129 / 63 HR: 87 Rhythm: Sinus Technical Quality: Adequate MEASUREMENTS (Male / Female) Normal Values 2D ECHO LV Diastolic Diameter PLAX 4.3 cm 4.2 - 5.9 / 3.9 - 5.3 cm LV Systolic Diameter PLAX 2.5 cm LV Chamber Size 3.2 cm IVS Diastolic Thickness 1.1 cm 0.6 - 1.0 / 0.6 - 0.9 cm IVS Systolic Thickness 1.4 cm LVPW Diastolic Thickness 1.2 cm 0.6 - 1.0 / 0.6 - 0.9 cm LVPW Systolic Thickness 1.4 cm RV Chamber Size 2.7 cm LVOT Diameter 2.1 cm LV Ejection Fraction 2D Teich 71.7 % LV Ejection Fraction MOD 2C 44.5 % LV Ejection Fraction 2C AL 45.5 % LA Diameter 3.2 cm LA Width 3.0 cm LA Height 3.3 cm RA Width 3.5 cm RA Height 3.4 cm Aorta at Sinotubular Diameter 3.1 cm M-MODE LV Diastolic Diameter MM 5.8 cm 4.2 - 5.9 / 3.9 - 5.3 cm LV Systolic Diameter MM 4.3 cm LV Ejection Fraction MM Teich 51.4 % IVS Diastolic Thickness MM 0.9 cm 0.6 - 1.0 / 0.6 - 0.9 cm IVS Systolic Thickness MM 1.3 cm LVPW Diastolic Thickness MM 1.0 cm 0.6 - 1.0 / 0.6 - 0.9 cm LVPW Systolic Thickness MM 1.7 cm Aortic Annulus Diameter 3.5 cm LA Ao Ratio MM 0.7 MV E Point Septal Separation 0.5 cm DOPPLER AV Peak Velocity 140.0 cm/s LVOT Peak Velocity 103.0 cm/s AV Area Cont Eq vti 2.9 cm squared AV Area Cont Eq pk 2.5 cm squared MV Area PHT 6.5 cm squared Mitral E to A Ratio 1.0 MV E' Velocity 49.5 cm/s Mitral E to MV E' Ratio 13.1 Mitral E to LV E' Lateral Ratio 15.2 Mitral E to LV E' Septal Ratio 11.6 TR Peak Velocity 196.9 cm/s TR Peak Gradient 15.5 mmHg TR Mean Velocity 140.3 cm/s TR Mean Gradient 8.8 mmHg TR Velocity Time Integral 43.3 cm TV Peak E Velocity 87.0 cm/s Right Atrial Pressure 3.0 mmHg Pulmonary Artery Systolic Pressu 18.5 mmHg PV Peak Velocity 60.0 cm/s RV Acceleration Time 0.1 s RV Ejection Time 0.4 s RV AcT/ET 0.3 FINDINGS Left Ventricle Normal left ventricular size. LV systolic function is mildly reduced with EF of 45-50%. Mild global hypokinesis is noted. Grade 2 diastolic dysfunction Right Ventricle The right ventricle is normal in size and function. Right Atrium The right atrium is normal in size. Left Atrium The left atrium is normal in size. Mitral Valve Structurally normal mitral valve without significant stenosis or prolapse. There is no mitral regurgitation. Aortic Valve Structurally normal aortic valve without significant sclerosis or stenosis. There is no aortic regurgitation. Tricuspid Valve Structurally normal tricuspid valve without significant stenosis or regurgitation. Insufficient TR jet to calculate RVSP Pulmonic Valve Structurally normal pulmonic valve without significant stenosis. There is no pulmonic regurgitation. Pericardium Normal pericardium without effusion. Aorta Normal ascending aorta dimension. CONCLUSIONS LV systolic function is midlly reduced with EF of 45-50% Grade 2 diastolic dysfunction No significant valvular heart disease No comparison studies are available Michael Street MD (Electronically Signed) Final Date: 22 March 2021 12:11 S
[2021-03-22] MEDS: pantoprazole DR 40 mg Tablet PO (08:10)
--- NOTE | 2021-03-22 20:17 | PM.PN ---
Subjective Subjective: Interval history: Patient continues require significant wound care. Noted below. No fevers. Medications: Reviewed: Yes Vitals/I&O/Wt Last Vital Signs Temp 98.5 F 03/22/21 19:49 Pulse 84 03/22/21 19:49 Resp 18 03/22/21 19:49 BP 131/71 03/22/21 19:49 Pulse Ox 96 03/22/21 19:49 03/22/21 03/22/21 03/22/21 06:59 14:59 22:59 Intake Total 50 / 1680 530 / 530 50 / 580 Output Total 600 / 1075 250 / 250 200 / 450 Balance -550 / 605 280 / 280 -150 / 130 Weight last 48 hrs Weight 83.098 kg Weight 89.584 kg Data : 03/22/21 02:33 03/22/21 02:33 Micro: Microbiology 03/20/21 23:40 Gram Stain - Final Leg - Right Wound Culture - Preliminary Gram Negative Rods 03/20/21 17:28 Blood Culture - Preliminary Blood NEGATIVE TO DATE 03/20/21 17:34 Blood Culture - Preliminary Blood NEGATIVE TO DATE A&P Assessment and plan (1) Lower extremity cellulitis: Status: Acute Qualifiers: Laterality: right Qualified Code(s): L03.115 - Cellulitis of right lower limb (2) Chronic venous stasis dermatitis of both lower extremities: Status: Acute (3) Complicated wound infection: Status: Acute (4) Congestive heart failure due to cardiomyopathy: Status: Acute (5) Morbid obesity: Status: Acute (6) Lymphedema: Status: Acute Additional A&P Information Cellulitis: X-rays negative for osteomyelitis. Appreciate Dr. Hensley's recommendation. Blood cultures negative for now, wound cultures growing gram-negative rods. For now continue with vancomycin and Zosyn. Will change antibiotics as per culture results. For most likely patient would need 7 days of antibiotics. Lymphedema wraps. LEONA done in December 2019 was within normal limits. Mixed congestive heart failure: Echocardiogram done shows an EF of 45 to 50% with grade 2 diastolic dysfunction with global hypokinesia. Currently on room air. No acute exacerbation. Check proBNP in a.m. Start on Lasix 40 mg oral twice daily. Given new finding of low EF cannot rule out ischemia. N.p.o. after midnight, Lexiscan in a.m. A1c 4.7, lipid panel results appreciated. TSH within normal limits We will start patient on low-dose lisinopril 5 mg oral daily. If blood pressure elevated will try to add beta-rafaela. Full code. Continue Lovenox 40 mg subcu daily for DVT prophylaxis. Continue Protonix 40 mg PO daily for GI ppx Discharge planning: Patient will most likely need antibiotics for 7 days. Depending on the culture results we will try to see if he can transition over to oral. Patient would need outpatient wound care and lymphedema wraps.Case discussed with case management. Given multiple requirements and social discord we will try to get home health but if not possible we will send a referral to LTAC as well due to multiple wound care needs and possible prolonged antibiotics. Patient has an appointment with Dr. Marvin. Attestations Medical Necessity Statement*: Patient requires further hospitalization for management of cellulitis due to gram-negative rods, new congestive heart failure and evaluation while safe discharge planning is sought Time Spent in Patient Care: Greater than 35 minutes (>than 50% of time spent in counselling and/or direct pt care on unit). 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
[2021-03-22] MEDS: enoxaparin 40 mg/0.4 mL Syringe SUBCUT (22:40)
[2021-03-23] VITALS (7 sets, daily range): BP systolic 118–141; BP diastolic 67–77; PULSE 69–100; RESP 14–17; TEMP 36.5–37.1; O2SAT 95–100
[2021-03-23] MEDS: vancomycin 1,250 MG/250 ML PIGGYBACK 250 MG IV ×2 (02:49→16:02)
--- NOTE | 2021-03-23 05:55 | PC.NURSE ---
Shift Note Frequent safety and comfort rounds continue. Orders and/or nursing care completed as indicated. Patient monitored for response to intervention and treatment(s). Patient rested well throughout the night without complaint. Patient is currently resting comfortably in bed. Will continue to monitor.
[2021-03-23] MEDS: piperacillin-tazobactam 3.375 GM in sodium chloride 0.9% (plus) 50 ML IV ×2 (06:31→21:11)
[2021-03-23 07:31] LABS: Alanine Aminotransferase 7 U/L (0-41); Albumin Level 2.1 g/dL (3.5-5.2); Alkaline Phosphatase 67 IU/L (40-130); Anion Gap 9.7 (5-19); Aspartate Amino Transferase 10 U/L (0-40); Blood Urea Nitrogen 9 mg/dL (6-20); Calcium 7.6 mg/dL (8.5-10.5); Carbon Dioxide 26 mmol/L (22-29); Chloride 107 mmol/L (98-107); Globulin 3.2 g/dL (1.3-4.6); Glomerular Filtration Rate 139.9 mL/min (90-130); Glucose 83 mg/dL (65-115); Osmolality Calculated 286 mOsm/kg (285-295); Potassium 3.7 mmol/L (3.5-5.1); Sodium 139 mmol/L (136-145); Total Bilirubin 0.4 mg/dL (0.15-1.2); Total Protein 5.3 g/dL (6.6-8.7)
--- NOTE | 2021-03-23 07:39 | ECG_ITS ---
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 The perfusion scan will be documented separately. DATA: Baseline heart rate was 86 beats per minute. Baseline blood pressure was 140/73 millimeters of mercury. Target heart rate was 165. Maximum heart rate achieved was 126. which was 76 % of the predicted target heart rate. Maximum blood pressure was 143/76 millimeters of mercury. The reason for ending the test was completion of the protocol. The patient did not experience any symptoms. ELECTROCARDIOGRAM: BASELINE: Sinus rhythm. Normal axis. Old anterolateral wall myocardial infarction otherwise, no ST-T changes suggestive of ischemia noted. No arrhythmia noted. EXERCISE: After Lexiscan injection, no ST-T changes suggestive of ischemic noted. No arrhythmia noted. CONCLUSION: Please note due to baseline abnormality of the EKG specificity and sensitivity of the EKG portion of LexiScan MIBI stress test will be low 1. EKG not suggestive of ischemia 2. Lexiscan injection unremarkable. 3. Perfusion scan will be documented separately. Electronically Signed On 03-24-2021 21:20:31 CDT by RAJANI GIMENEZ [email or web address]
[2021-03-23] MEDS: regadenoson 0.4 Mg/5 ml Syringe IVP (08:45)
[2021-03-23] MEDS: pantoprazole DR 40 mg Tablet PO (10:34)
[2021-03-23] MEDS: FUROsemide 40 mg Tablet PO (10:35)
[2021-03-23] MEDS: lisinopril 5 mg Tablet PO (10:35)
--- NOTE | 2021-03-23 16:55 | PM.PN ---
Subjective Subjective: Interval history: No acute events overnight. Has remained hemodynamically stable and afebrile. Denies any nausea, vomiting, headache. Denies any shortness of breath. Today morning seen post Lexiscan. States he is hungry and asking for food. Various discharge planning including possible discharge to LTAC versus home health were discussed. Patient verbalized understanding and is open to both options. Medications: Reviewed: Yes Vitals/I&O/Wt Last Vital Signs Temp 97.7 F 03/23/21 12:00 Pulse 81 03/23/21 12:00 Resp 17 03/23/21 12:00 BP 131/75 03/23/21 12:00 Pulse Ox 100 03/23/21 12:00 03/23/21 03/23/21 03/23/21 06:59 14:59 22:59 Intake Total 300 / 880 50 / 50 Output Total 550 / 1200 300 / 300 Balance -250 / -320 -250 / -250 Physical Exam Narrative: EXAM NARRATIVE: GENERAL: Patient is alert and oriented ?3 and in no acute distress. The following is a focused bilateral lower extremity exam. Cardiovascular: S1-S2 regular, no tachycardia Soft pansystolic murmur at apex, no gallop Pulmonary: Normal vesicular breath sounds bilaterally, good equal air entry bilaterally. Abdomen: Soft, nontender, no organomegaly, bowel sounds regular. Neurological: AOx3, moving all limbs. VASCULAR: Dorsalis pedis palpable +2 lef. t and right foot. Posterior tibial arteries palpable +1 left and right likely secondary to edema. Capillary refill time less than 3 seconds to the distal hallux bilaterally. +2 pitting edema tested at the lower one third of the anterior tibial crest at the left lower extremity and +3 pitting edema to the right. Decreased pedal hair growth. NEUROLOGICAL: Protective sensation intact 5/10 sites, tested with [place] Kati monofilament to bilateral feet. DERMATOLOGICAL: Venous ulceration to the right leg in a circumferential linear fashion this is a grade 2 ulcer with serous drainage, no tucker purulence. Erythema to the bilateral lower extremities right greater than left also rubor present. Dystrophic toenail is x10. Dry flaky skin on bilateral lower extremities. MUSCULOSKELETAL: Tenderness with debridement of right leg wound. Muscle strength the lower extremities are 5/5 in all 3 cardinal planes to the bilateral foot and ankle. Ankle joint dorsiflexion to neutral. Data : 03/22/21 02:33 03/23/21 06:38 Micro: Microbiology 03/20/21 23:40 Gram Stain - Final Leg - Right Wound Culture - Preliminary Gram Negative Rods Gram Negative Rods#2 Staphylococcus aureus A&P Assessment and plan (1) Lower extremity cellulitis: Status: Acute Qualifiers: Laterality: right Qualified Code(s): L03.115 - Cellulitis of right lower limb (2) Chronic venous stasis dermatitis of both lower extremities: Status: Acute (3) Complicated wound infection: Status: Acute (4) Congestive heart failure due to cardiomyopathy: Status: Acute (5) Morbid obesity: Status: Acute (6) Lymphedema: Status: Acute Additional A&P Information Cellulitis: X-rays negative for osteomyelitis. Appreciate Dr. Hensley's recommendation. Blood cultures negative for now. Wound cultures now growing 2 gram-negative's and staph aureus. Discussed with Dr. Hensley skin sen. These are not OR cultures. Most likely skin sen. MRSA pending. For now continue with vancomycin and Zosyn. Most likely patient would need at least 14 days of antibiotics. Lymphedema wraps. LEONA done in December 2019 was within normal limits. Mixed congestive heart failure: Echocardiogram done shows an EF of 45 to 50% with grade 2 diastolic dysfunction with global hypokinesia. Currently on room air. No acute exacerbation. Lexiscan negative for acute ischemia. Continue with Lasix 40 mg oral daily, lisinopril 5 mg oral daily. Will uptitrate medication or add carvedilol depending on the blood pressures. A1c 4.7, lipid panel results appreciated. TSH within normal limits Full code. Continue Lovenox 40 mg subcu daily for DVT prophylaxis. Continue Protonix 40 mg PO daily for GI ppx Discharge planning: Patient will most likely need antibiotics for 7 days. Depending on the culture results we will try to see if he can transition over to oral. Patient would need outpatient wound care and lymphedema wraps.Case discussed with case management. Given multiple requirements and social discord we will try to get home health but if not possible we will send a referral to LTAC as well due to multiple wound care needs and possible prolonged antibiotics. Patient has an appointment with Dr. Marvin. Attestations Medical Necessity Statement*: Requires further hospitalization for cellulitis, new mixed congestive heart failure from nonischemic cardiomyopathy while safe discharge planning is sought. Time Spent in Patient Care: Greater than 35 minutes (>than 50% of time spent in counselling and/or direct pt care on unit). 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
--- NOTE | 2021-03-23 20:36 | NMCV_ITS ---
NM radha perf SPECT r/s* [id number] Bg Mccauley Age: 55 Gender: M : 1965 Exam Date: 03/23/2021 07:36 Ordering Phys: Marvin Govea MD Technologist: WENDY Gallardo Exam Location: [facility] Indications: RIGHT LEG PAIN STRESS TEST Please see separate stress test report in [facility] for full findings IMAGE PROTOCOL Rest/Stress 1 Lexiscan Day Radiopharmaceutical Dose (mCi) Administration Site Administered by Rest: Tc-99m 11.0 IV WENDY Kumari Sestamibi Stress:Tc-99m 32.9 IV WENDY Kumari Sestamibi Rest: 23-Mar-2021 60 Discovery 630 Stress: 23-Mar-2021 30 Discovery 630 0.4mg Lexiscan. Supine position only as patient was unable to lay prone. SPECT RESULTS Technical Quality: Excellent Raw Data Analysis: Normal Image Corrections: No attenuation or motion correction applied Summed Stress Score: 0 Summed Rest Score: 1 Summed Difference Score: 0 PERFUSION FINDINGS Fairly uniform myocardial tracer uptake. Patchy areas of decreased tracer uptake were noted around the left ventricular apex. No significant reversibility was noted FUNCTIONAL RESULTS (calculated via Gated SPECT) Stress Image LV EF (%): 54 Stress EDV (mL):94 TID: 1 Stress ESV (mL):43 FUNCTIONAL FINDINGS: Segmental wall motion analysis revealing no gross wall motion normalities. IMPRESSIONS 1. Myocardial perfusion imaging revealing patchy areas of persistent decreased tracer uptake in the apical region, most likely are present attrition artifacts. 2. Normal LV ejection fraction of 54%. 3. LV wall motion analysis revealing no gross wall motion normalities. 4. Normal LV volume. No significant coronary ischemia, based on the above findings Dr Sae Farmer MD [facility] (Electronically Signed) Final Date: 23 March 2021 11:46 S
[2021-03-23] MEDS: enoxaparin 40 mg/0.4 mL Syringe SUBCUT (21:10)
[2021-03-23 21:53] LABS: Quest SARS-CoV-2 RNA NOT DETECTED (NOT DETECTED)
[2021-03-24] VITALS: BP 126/73; PULSE 78; RESP 16; TEMP 36.7; O2SAT 97
[2021-03-24] MEDS: vancomycin 1,250 MG/250 ML PIGGYBACK 250 MG IV (03:45)
[2021-03-24 04:00] VITALS: BP 148/81; PULSE 81; RESP 16; TEMP 37.1; O2SAT 96
--- NOTE | 2021-03-24 05:30 | PM.PN ---
Subjective Subjective: Interval history: Patient seen bedside this morning for lower extremity dressing changes, denies any acute events overnight, denies any pain, patient denies any subjective nausea, vomiting, fever, chills, shortness of breath or chest pain. Vitals/I&O/Wt Last Vital Signs Temp 98.8 F 03/24/21 04:00 Pulse 81 03/24/21 04:00 Resp 16 03/24/21 04:00 BP 148/81 03/24/21 04:00 Pulse Ox 96 03/24/21 04:00 03/23/21 03/23/21 03/24/21 14:59 22:59 06:59 Intake Total 50 / 50 250 / 300 50 / 350 Output Total 300 / 300 1300 / 1600 400 / 2000 Balance -250 / -250 -1050 / -1300 -350 / -1650 Physical Exam Narrative: EXAM NARRATIVE: Patient is alert and oriented ?3 and in no acute distress. The following is a focused bilateral lower extremity exam. VASCULAR: Dorsalis pedis palpable +2 left and right foot. Posterior tibial arteries palpable +1 left and right likely secondary to edema. Capillary refill time less than 3 seconds to the distal hallux bilaterally. +1 pitting edema tested at the lower one third of the anterior tibial crest at the left lower extremity and +3 pitting edema to the right. Decreased pedal hair growth. NEUROLOGICAL: Protective sensation intact 5/10 sites, tested with [place] Kati monofilament to bilateral feet. DERMATOLOGICAL: Venous ulceration to the right leg in a circumferential linear fashion this is a grade 2 ulcer with serous drainage, no tucker purulence. Healthy granular wound bed with epithelialized margin, no purulence or erythema at right leg ulcer. Erythema to the bilateral lower extremities right greater than left also rubor present. Dystrophic toenail is x10. Dry flaky skin on bilateral lower extremities. MUSCULOSKELETAL: Tenderness with debridement of right leg wound. Muscle strength the lower extremities are 5/5 in all 3 cardinal planes to the bilateral foot and ankle. Ankle joint dorsiflexion to neutral. Data : 03/22/21 02:33 03/23/21 06:38 Micro: Microbiology 03/20/21 23:40 Gram Stain - Final Leg - Right Wound Culture - Preliminary Gram Negative Rods Gram Negative Rods#2 Staphylococcus aureus A&P Assessment and plan (1) Lower extremity cellulitis: Status: Acute Qualifiers: Laterality: right Qualified Code(s): L03.115 - Cellulitis of right lower limb (2) Chronic venous stasis dermatitis of both lower extremities: Status: Acute (3) Complicated wound infection: Status: Acute (4) Congestive heart failure due to cardiomyopathy: Status: Acute (5) Morbid obesity: Status: Acute (6) Lymphedema: Status: Acute -Improved lower extremity edema and significant improvement to right leg wound. Has had a percent granulation tissue and epithelialized margin, no acute signs of infection. -Performed bilateral lower extremity dressing changes. Applied bilateral lower extremity Unna boot wraps for venous insufficiency with ulceration. Base layer wound dressing to the right leg Maxorb AG followed by Unna flex paste wrap, Kerlix, cast padding and Coban. -From podiatry standpoint in regards to his lower extremity wounds he is okay for discharge would recommend oral antibiotics on discharge. -Recommend wound care referral and follow-up in wound care clinic moving forward would also benefit from home health to assist with dressing supplies and lymphedema wraps -Podiatry will continue to follow while inpatient should he remain will continue to do dressing changes every 3 days. I appreciate the opportunity to participate in patient's care please contact me with any questions cell phone [phone]. 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
[2021-03-24] MEDS: piperacillin-tazobactam 3.375 GM in sodium chloride 0.9% (plus) 50 ML IV ×2 (05:33→13:07)
[2021-03-24 06:00] VITALS: BMI 24.7
--- NOTE | 2021-03-24 07:17 | PC.NURSE ---
DRESSING CHANGE: PHYSICIAN AT BEDSIDE TO CHANGE THE LYMPHEDEMA WRAPS TO BLE. WOUND BED CLEANED WITH STERILE SALINE, DRIED, AND COVERED WITH GAUZE, KERLEX, AND COBAN TO THE LOWER LEFT LEG. PATIENT TOLERATED WELL. CHANGES TO BE DONE EVERY 3 DAYS PER PHYSICIAN.
[2021-03-24 08:00] VITALS: BP 144/76; PULSE 77; RESP 18; TEMP 36.4; O2SAT 97
[2021-03-24] MEDS: FUROsemide 40 mg Tablet PO (09:40)
[2021-03-24] MEDS: lisinopril 5 mg Tablet PO (09:40)
[2021-03-24] MEDS: pantoprazole DR 40 mg Tablet PO (09:40)
--- NOTE | 2021-03-24 11:06 | PM.TDS ---
Transfer Summary Providers Date of Admission: 03/20/21 21:34 Date of Discharge: 03/24/21 Attending Provider at Admission: Brittani Ac Attending Provider at Transfer: Marvin Govea MD Consults: Podiatry: Dr. Hensley Anticipated Date of Transfer: Anticipated date of transfer: 03/24/21 Receiving Facility & Provider: Receiving Provider: [Dr. Cota] Receiving facility: [[facility]] Diagnoses at Discharge Discharge Diagnosis (1) Lower extremity cellulitis: Status: Acute Qualifiers: Laterality: right Qualified Code(s): L03.115 - Cellulitis of right lower limb (2) Chronic venous stasis dermatitis of both lower extremities: Status: Acute (3) Complicated wound infection: Status: Acute (4) Congestive heart failure due to cardiomyopathy: Status: Acute Permanent problem details: Mixed systolic and diastolic (5) Morbid obesity: Status: Acute (6) Lymphedema: Status: Acute (7) Malnourished: Status: Acute Reason for Visit Reason for Visit: RIGHT LEG PAIN Hospital Course Hospital Course Bg Mccauley is a 55 year old male admitted to hospital service for bilateral lower extremity cellulitis and venous stasis ulceration to the right lower extremity. Patient states that several days prior to this hospitalization he was ambulatory, his landlord checked on him and saw him in bed unable to get out and called 911 he came to the ED via EMS. Patient states that he lives at home alone however he does have family in the area. He endorses some tenderness to the right leg wound states he is able to move and lift his leg relatively comfortably. States that he has had swelling and complications with leg sores ongoing for many months. Patient denies any subjective nausea, vomiting, fever, chills, shortness of breath or chest pain. Patient was admitted to the hospital for management of bilateral lower extremity cellulitis. Podiatry was consulted. Osteomyelitis was ruled out by x-rays. He was started on broad-spectrum antibiotics and lymphedema wraps and he responded well to the treatment. Wound cultures grew Morganella, providentia and MRSA with sensitivities as below. Patient during hospitalization remained on vancomycin and Zosyn. Echocardiogram was done which showed global LV hypokinesia with new mixed congestive heart failure. Ischemic cardiomyopathy was ruled out with negative Lexiscan. Going forward patient needs antibiotics for at least 10 more days as per the culture sensitivities along with extensive and aggressive wound care and lymphedema wraps. Patient is a high risk of failure to treatment because of nutritional deficits. Patient needs extensive physical therapy along with all as well. Because of all the requirements. Discharge planning were discussed with the patient and LTAC was proposed. Patient agreed for the same. Patient is being discharged in hemodynamically stable condition to long-term acute facility for aggressive wound care and lymphedema wrap along with IV antibiotics for 10 more days. Physical Exam Narrative: EXAM NARRATIVE: GENERAL: Patient is alert and oriented ?3 and in no acute distress. The following is a focused bilateral lower extremity exam. Cardiovascular: S1-S2 regular, no tachycardia Soft pansystolic murmur at apex, no gallop Pulmonary: Normal vesicular breath sounds bilaterally, good equal air entry bilaterally. Abdomen: Soft, nontender, no organomegaly, bowel sounds regular. Neurological: AOx3, moving all limbs. VASCULAR: Dorsalis pedis palpable +2 lef. t and right foot. Posterior tibial arteries palpable +1 left and right likely secondary to edema. Capillary refill time less than 3 seconds to the distal hallux bilaterally. +2 pitting edema tested at the lower one third of the anterior tibial crest at the left lower extremity and +3 pitting edema to the right. Decreased pedal hair growth. NEUROLOGICAL: Protective sensation intact 5/10 sites, tested with Percy Kati monofilament to bilateral feet. DERMATOLOGICAL: Venous ulceration to the right leg in a circumferential linear fashion this is a grade 2 ulcer with serous drainage, no tucker purulence. Erythema to the bilateral lower extremities right greater than left also rubor present. Dystrophic toenail is x10. Dry flaky skin on bilateral lower extremities. MUSCULOSKELETAL: Tenderness with debridement of right leg wound. Muscle strength the lower extremities are 5/5 in all 3 cardinal planes to the bilateral foot and ankle. Ankle joint dorsiflexion to neutral. TS Data Data Completed and Pending: Completed Studies During Hospitalization Category Date Time Status Sestamibi Stress Test Request Emilia ne Exams 03/23/21 07:39 Draft XR foot LT 2V 736 20 Stat Exams 03/20/21 17:13 Completed XR foot RT 2V 736 20 Stat Exams 03/20/21 17:13 Completed XR tibia fibula L T 2V 62110 Stat Exams 03/20/21 17:13 Completed XR tibia fibula R T 2V 24224 Stat Exams 03/20/21 17:13 Completed NM radha perf SPECT r/s* [id number] Routin e Nuc Med 03/23/21 20:36 Completed CV. echo complete * [id number] Routine Ultrasound 03/22/21 06:00 Completed Pending at discharge Category Date Time Status Sestamibi Stress Test Request Emilia ne Exams 03/22/21 20:35 Stop Req Blood Culture Sta t Lab 03/20/21 17:28 Results Vancomycin Trough Timed Lab 03/24/21 14:00 Ordered Labs from last 24 hours 03/22/21 03/20/21 08:00 20:59 SARS-CoV-2 RNA (RT -PCR) Not detected Misc Test Referenc e See comment Addt'l Data from Hospital Stay: Laboratory Results WBC 7.6 10^3/uL (4.0- 10.0) 03/22/21 02:33 RBC 3.21 10^6/uL (4.1 -5.3) L 03/22/21 02:33 Hgb 10.1 g/dL (11.7-1 6.6) L 03/22/21 02:33 Hct 31.7 % (42.0-52.0 ) L 03/22/21 02:33 MCV 98.8 fl (80-94) H 03/22/21 02:33 MCH 31.5 pg (28.0-34. 0) 03/22/21 02:33 MCHC 31.9 g/dL (30.0-3 6.0) 03/22/21 02:33 RDW 12.2 % (12.1-15.1 ) 03/22/21 02:33 Plt Count 308 10^3/cmm (130 -400) 03/22/21 02:33 MPV 8.8 fL (7.4-10.4) 03/22/21 02:33 Neut % (Auto) 56.7 % 03/22/21 02:33 Lymph % (Auto) 22.6 % 03/22/21 02:33 [place] % (Auto) 9.9 % 03/22/21 02:33 Eos % (Auto) 9.7 % 03/22/21 02:33 Baso % (Auto) 0.7 % 03/22/21 02:33 Neut # (Auto) 4.28 10^3/uL (1.8 -7.7) 03/22/21 02:33 Lymph # (Auto) 1.7 10^3/uL (0.8- 4.8) 03/22/21 02:33 [place] # (Auto) 0.8 10^3/uL (0.2- 0.9) 03/22/21 02:33 Eos # (Auto) 0.7 10^3/uL (0.0- 0.8) 03/22/21 02:33 Baso # (Auto) 0.1 10^3/uL (0.0- 0.1) 03/22/21 02:33 Nucleated RBC % (a uto) 0 % 03/22/21 02:33 Nucleated RBCs # 0.0 /100WBC 03/22/21 02:33 ESR 75 mm/hr (0-10) H 03/20/21 17:13 PT 13.50 SECONDS (12 .1-14.9) 03/20/21 17:17 INR 1.00 (0.8-1.2) 03/20/21 17:17 APTT 26.1 SECONDS (23. 9-36.7) 03/20/21 17:17 Sodium 139 mmol/L (136-1 45) 03/23/21 06:38 Potassium 3.7 mmol/L (3.5-5 .1) 03/23/21 06:38 Chloride 107 mmol/L (98-10 7) 03/23/21 06:38 Carbon Dioxide 26 mmol/L (22-29) 03/23/21 06:38 Anion Gap 9.7 (5-19) 03/23/21 06:38 BUN 9 mg/dL (6-20) 03/23/21 06:38 Creatinine 0.6 mg/dL (0.7-1. 2) L 03/23/21 06:38 GFR Calculation 139.9 mL/min (90- 130) H 03/23/21 06:38 Glucose 83 mg/dL (65-115) 03/23/21 06:38 Estimat Average Gl ucose 88 03/21/21 09:32 Hemoglobin A1c 4.7 % (4.0-6.0) 03/21/21 09:32 Calculated Osmolal ity 286 mOsm/kg (285- 295) 03/23/21 06:38 Lactic Acid 0.8 mmol/L (0.5-2 .2) 03/21/21 09:32 Lactate 2.1 mmol/L (0.5-2 .2) 03/20/21 17:34 Calcium 7.6 mg/dL (8.5-10 .5) L 03/23/21 06:38 Magnesium 1.9 mg/dL (1.7-2. 3) 03/21/21 09:32 Total Bilirubin 0.4 mg/dL (0.15-1 .2) 03/23/21 06:38 AST 10 U/L (0-40) 03/23/21 06:38 ALT 7 U/L (0-41) 03/23/21 06:38 Alkaline Phosphata se 67 IU/L (40-130) 03/23/21 06:38 C-Reactive Protein 89.9 mg/L (0.0-4. 9) H 03/20/21 17:13 Total Protein 5.3 g/dL (6.6-8.7 ) L 03/23/21 06:38 Albumin 2.1 g/dL (3.5-5.2 ) L 03/23/21 06:38 Globulin 3.2 g/dL (1.3-4.6 ) 03/23/21 06:38 Triglycerides 58 mg/dL (0-150) 03/21/21 09:32 Cholesterol 114 mg/dL (0-200) 03/21/21 09:32 LDL Cholesterol, C alc 63 mg/dL (50-129) 03/21/21 09:32 HDL Cholesterol 39 mg/dL (60-100) L 03/21/21 09:32 LDL/HDL Ratio 1.62 RATIO (0.00- 3.22) 03/21/21 09:32 Cholesterol/HDL Ra debby 2.92 mg/dL (1.0-5 .00) 03/21/21 09:32 Procalcitonin 0.20 ng/mL (0-0.5 ) 03/22/21 02:33 TSH 2.44 uIU/mL (0.27 -4.20) 03/21/21 09:32 Vancomycin Trough 21.7 ug/mL (10-15 ) H 03/22/21 02:33 SARS-CoV-2 RNA (RT -PCR) Not detected (NO T DETECTED) 03/20/21 20:59 SARS-CoV-2 Ag (Rap id) Negative (Negati ve) 03/20/21 20:59 Misc Test Referenc e See comment 03/22/21 08:00 Impressions Foot X-Ray 03/20/21 17:13 IMPRESSION: Soft tissue edema without definite findings osteomyelitis. Tibia/Fibula X-Ray 03/20/21 17:13 IMPRESSION: Negative for osteomyelitis. Microbiology 03/20/21 23:40 Leg - Right Gram Stain - Final 03/20/21 23:40 Leg - Right Wound Culture - Final Morganella morganii Providencia stuartii Staphylococcus aureus 03/20/21 17:28 Blood Blood Culture - Preliminary NEGATIVE TO DATE 03/20/21 17:34 Blood Blood Culture - Preliminary NEGATIVE TO DATE M morganii P stuartii S aureus M.I.C. RX M.I.C. RX M.I.C. RX --------- ------ --------- ------ --------- ------ * Amikacin <=16 S <=16 S * Amoxicillin/Clavulanate >16/8 R >16/8 R <=4/2 S * Ampicillin >16 R >16 R >8 R * Ampicillin/Sulbactam >16/8 R 16/8 I <=8/4 S * Aztreonam <=4 S <=4 S * Cefepime <=8 S <=8 S * Ceftriaxone <=1 S <=1 S <=8 S * Cefuroxime >16 R <=4 S * Ciprofloxacin <=1 S <=1 S <=1 S * Clindamycin <=0.5 S * Erythromycin <=0.5 S * Gentamicin <=2 S 4 R <=4 S * Imipenem 4 R <=1 S * Levofloxacin <=2 S <=2 S <=1 S * Linezolid 4 S * Oxacillin <=0.25 S * Penicillin >8 R * Rifampin <=1 S * Tetracycline <=4 S >8 R <=4 S * Tobramycin >8 R * Trimethoprim/Sulfamethoxazole <=2/38 S <=2/38 S <=0.5/9.5 S Vancomycin 1 S * Piperacillin/Tazobactam <=16 S <=16 S Daptomycin <=0.5 S Echocardiogram CONCLUSIONS LV systolic function is midlly reduced with EF of 45-50% Grade 2 diastolic dysfunction No significant valvular heart disease No comparison studies are available Lexiscan: IMPRESSIONS 1. Myocardial perfusion imaging revealing patchy areas of persistent decreased tracer uptake in the apical region, most likely are present attrition artifacts. 2. Normal LV ejection fraction of 54%. 3. LV wall motion analysis revealing no gross wall motion normalities. 4. Normal LV volume. No significant coronary ischemia, based on the above findings Dr Sae Farmer MD [facility] (Electronically Signed) Final Date: 23 March 2021 11:46 Vitals: Last Vital Signs Temp 97.6 F 03/24/21 08:00 Pulse 77 03/24/21 08:00 Resp 18 03/24/21 08:00 BP 144/76 03/24/21 08:00 Pulse Ox 97 03/24/21 08:00 TS Medications Medications Home Medications No Known Home Medications 03/20/21 [History Confirmed 03/20/21] Active Medications Acetaminophen (Acetaminophen 325 Mg Tablet) 650 mg PO Q6H PRN PRN Reason: Mild/Mod Pain Or Temp >/= 101 Hydrocodone Bitart/Acetaminophen (Hydrocodone-Acetaminophen 5-325 Mg Tablet) 1 tab PO Q4H PRN PRN Reason: MODERATE TO SEVERE PAIN Last Admin: 03/21/21 09:26 Dose: 1 tab Documented by: Enoxaparin Sodium (Enoxaparin 40 Mg/0.4 Ml Syringe) 40 mg SUBCUT Q24H [facility] Last Admin: 03/23/21 21:10 Dose: 40 mg Documented by: Furosemide (Furosemide 40 Mg Tablet) 40 mg PO DAILY@0800 [facility] Last Admin: 03/24/21 09:40 Dose: 40 mg Documented by: Piperacillin Sod/Tazobactam (Sod 3.375 gm/ Sodium Chloride) 50 mls @ 12.5 mls/hr IV Q8H [facility]; Protocol Last Infusion: 03/24/21 09:33 Dose: Infused Documented by: Vancomycin/PEG/NADA/Lysine/Water (Vancocin) 1,250 mg in 250 mls @ 250 mls/hr IV Q12H [facility] Last Infusion: 03/24/21 04:45 Dose: Infused Documented by: Lisinopril (Lisinopril 5 Mg Tablet) 5 mg PO DAILY [facility] Last Admin: 03/24/21 09:40 Dose: 5 mg Documented by: Morphine Sulfate (Morphine 4 Mg/Ml Sdv 1 Ml) 2 mg IVP Q4H PRN PRN Reason: SEVERE PAIN Last Admin: 03/21/21 13:18 Dose: 2 mg Documented by: Ondansetron HCl (Ondansetron 2 Mg/Ml Sdv 2 Ml) 4 mg IVP Q8H PRN PRN Reason: vomiting, or N/V if npo Ondansetron HCl (Ondansetron 2 Mg/Ml Sdv 2 Ml) 4 mg IVP Q2M PRN PRN Reason: NAUSEA Pantoprazole Sodium (Pantoprazole Dr 40 Mg Tablet) 40 mg PO DAILY [facility] Last Admin: 03/24/21 09:40 Dose: 40 mg Documented by: Discharge Plan Discharge Patient Disposition: Xfer LTC Condition: Stable Prescriptions: No Action No Known Home Medications RF: 0 Discharge Orders: Transfer Out of Facility (Order); Ordered 03/24/21 Ordered By: Marvin Govea Other Ambulatory Orders: DME: Walker (Order) Location: None Selected Ordered By: Marvin Govea Referrals: Medicaid Transport [Other] (To utilize Medicaid transport you will need to call 3 business days prior to appointment date to schedule ride. You can ask for a round trip and will call which means you will call the limousine driver to pick you up once appointment is finished. ) Chaparro Marvin MD [Physician] - (You have an appointment scheduled with Dr Marvin to follow up and establish care so he can follow you for Home Health on 03/26/2021 at 1:00pm. . Your transport will arrive between 12:00pm-12:30pm. Once your appointment is over please call to be picked up and taken home. Trip ID: [id number]. Please bring medications in bottles if possible, ID and insurance card to appointment.) Manjit Read MD [Physician] - (You are scheduled to see Dr Read at [facility] on 03/25/2021 at 1:30pm. Address: [address] [place] [address]. . Transportation has been scheduled for this appointment through Medicaid Transport. jewelry department supervisor time is between 12:30pm-12:55pm. You can call the transport to pick you up and take you home once appointment is finished. Trip ID: [id number]) Patient Instructions: Opioid Safety Activity Restrictions/Additional Instructions: Discuss with Dr Reda at your wound care appointment to see if legs can be double wrapped since home health will not be able to accomodate lymphedema wraps. If you do need to have the lymphedema wraps ongoing, a financial assistance application can be filled out and you can be set up to see Yany Monroe in physical therapy as outpatient if approved. Phone for outpatient physical therapy is [phone]. Address: [address] [place] [address]. Medicaid will not cover transport to therapy appointments. It is important that you attend the appointments scheduled so you can get home health services and appropriate treatment for your wounds. Please utilize Medicaid transport going forward for transportation so you can be seen timely for care. Transfer Attestations Time Spent in Transfer Care*: greater than 30 min Specific Discharge Activities: Specific discharge activities: educating patient, discussing with pcp/other providers, discussing with director of casework services/social workers/dc planners, documenting/other paperwork and evaluating patient/reviewing data Status at Transfer: Cognitive status at transfer: cognitively intact, Behavioral status at transfer: cooperative, Functional status at transfer: other assisted ambulation Overall status at transfer: patient is progressing back to baseline Quality Metrics Clinical Quality Measures: During this hospital stay, did patient experience: None Coding Level of Care Code Acute [employer] for [facility] Fwd Diagnoses Lower extremity cellulitis L03.115 Laterality: right Chronic venous stasis dermatitis of both lower extremities I87.2 Complicated wound infection T14.8XXA; L08.9 Congestive heart failure due to cardiomyopathy I50.9; I42.9 Morbid obesity E66.01 Lymphedema I89.0 Malnourished E46
[2021-03-24 12:00] VITALS: BP 139/84; PULSE 84; RESP 18; TEMP 36.4; O2SAT 100
[2021-03-24 14:56] LABS: Vancomycin Trough 15.2 ug/mL (10-15)
[2021-03-24 17:42] VITALS: BP 139/84; PULSE 84; RESP 18; TEMP 36.4; O2SAT 100
== END 2021-03-24 16:00 | DRG 603 ==
LOC: ER 21:25 → MEDSURG 03-21 05:55
PROVIDERS: Admitting Provider Hospitalist; Emergency Provider Emergency Medicine; Visit Provider Student in an Organized Health Care Education/Training Program
DX: L03.115 Cellulitis of right lower limb (principal); L97.812 Non-pressure chronic ulcer of other part of right lower leg with fat layer exposed; I50.42 Chronic combined systolic (congestive) and diastolic (congestive) heart failure; I42.8 Other cardiomyopathies; I87.2 Venous insufficiency (chronic) (peripheral); I73.9 Peripheral vascular disease, unspecified; E66.01 Morbid (severe) obesity due to excess calories; I89.0 Lymphedema, not elsewhere classified
CPT/HCPCS: 36415; 73590; 73620; 78452; 80048; 80053; 80061; 80202; 83036; 83605; 83735; 84145; 84443; 85025; 85610; 85651; 85730; 86140; 87040; 87070; 87075; 87077; 87186; 87205; 87426; 87635; 87641; 93017; 93306; 96365; 96367; 96372; 97116; 97161; 99285; 99291; 99292; A9500; J1650; J2270; J2543; J2785; J3370; J7030; J7050

== ENCOUNTER 2021-04-07 13:06 | Outpatient (CLI) | payer MEDICAID, SELFPAY | END 2021-04-07 13:07 | disposition home or self-care (01) | LOC: WOUND 13:07 | PROVIDERS: Visit Provider Thoracic Surgery (Cardiothoracic Vascular Surgery) | DX: L97.811 Non-pressure chronic ulcer of other part of right lower leg limited to breakdown of skin (principal) | CPT/HCPCS: 97597; 99214 ==

== ENCOUNTER 2021-04-14 15:08 | Emergency (ER) | payer MEDICAID, SELFPAY ==
[2021-04-14 15:11] VITALS: BP 144/77; PULSE 100; RESP 16; O2SAT 100; BMI 33.3
--- NOTE | 2021-04-14 15:23 | XR_ITS ---
WS: [id number] PORTABLE CHEST HISTORY: weakness COMPARISON: None available. Lungs are clear and well expanded. No pleural effusion or pneumothorax. Cardiac size: Normal. Mediastinum/Aorta: Normal mediastinum. Mild thoracolumbar scoliosis. XR/XR chest 1V portable [id number] IMPRESSION: Unremarkable portable chest.
--- NOTE | 2021-04-14 15:24 | ECG_ITS ---
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
--- NOTE | 2021-04-14 16:52 | ED_ITS ---
HPI - Weakness General: Chief complaint: Weakness Stated complaint: SKIN WOUNDS R/L ARM Time Seen by Provider: 04/14/21 15:11 History of Present Illness: HPI Narrative: Patient is a 55-year-old male past medical history of hypertension heart failure chronic full body skin infection seen by wound care in [place]. He was brought to the hospital via EMS after a well check at home. He was supposed to go to wound care facility in [place] yesterday admissions with his appointment because he did not have a ride. When home health came in today they were concerned about his weakness and general well billing being so they brought EMS to transport to the hospital. Patient does not state that he has any current symptoms. No fevers chills chest pain nausea vomiting diarrhea altered mental status or syncope. Imaging his exam showed chronic fungal and stasis wounds throughout his entire limbs and chest including an infestation of maggots in his lower body and is cutaneous tissue. Review of Systems General: Reports: 10 or more systems reviewed and unremarkable except in HPI and below PFSH ED PFSH: Medical History Complicated wound infection Hypertension Morbid obesity No pertinent family history Obesity Surgical History No pertinent past surgical history Social History Smoking and tobacco status: never smoked Alcohol intake: never Physical Exam Const: COMMON NORMALS: no acute distress and patient oriented x3; negative for healthy appearing and negative for well nourished EXAM LIMITATIONS: no altered mental status GENERAL APPEARANCE: cooperative and comfortable; not well kempt and not disheveled NUTRITIONAL APPEARANCE: cachectic HENMT: COMMON NORMALS: normocephalic and atraumatic HEAD & SCALP: normocephalic and atraumatic Eye: COMMON NORMALS: Equal, round and reactive pupils present and EOMs intact bilaterally PUPIL: Yes Equal, round and reactive pupils present Chest: COMMONS NORMALS: normal inspection of the chest Resp: COMMON NORMALS: normal respiratory effort Cardio: COMMON NORMALS: regular rate, regular rhythm, S1 normal heart sound present, S2 normal heart sound present and No murmurs present (Cardio) RATE: regular rate RHYTHM: regular rhythm HEART SOUNDS: S1 normal heart sound present and S2 normal heart sound present GI: COMMON NORMALS: Normal to inspection, nondistended, normoactive bowel sounds present and Soft to palpation PALPATION: Yes Soft to palpation Extremity: COMMON NORMALS: normal to inspection and full ROM; negative for no clubbing, cyanosis or edema NARRATIVE EXTREMITY EXAM: Significant bilateral lower extremity edema Neuro: COMMON NORMALS: patient oriented x3, moves all extremities, no focal motor deficits and no sensory deficits noted Psych: COMMON NORMALS: mental status grossly normal APPEARANCE: No well kempt Skin: NARRATIVE SKIN EXAM: Patient has a significant all body severe flaking cutaneous skin rash consistent with chronic fungal infection. It is excoriated with fissures into the subcutaneous tissue. There is no area that seems to be fresh infection. Substantial bilateral lower leg edema with stasis dermatitis he does have moderate maggot infestation's bilateral lower extremities. Course ED course: Patient is a 55-year-old male here with severe skin infection. Vital Signs: Vital signs: Vital Signs Pulse Rate 100 04/14/21 15:11 Respiratory Rate 16 04/14/21 15:11 Blood Pressure 144/77 04/14/21 15:11 Pulse Oximetry 100 04/14/21 15:11 MDM - Weakness MDM Narrative: Medical decision making narrative: Patient is a 55 male here with a severe skin condition. Patient does not have any what appears to be any acute issues however it is very clear this patient is not capable of taking care of himself at home. Maggot infestation was poor health. He probably needs to be placed. We will do a general medical work-up on him and then speak with the hospitalist about ad mission or possible transfer. Patient's laboratory work-up was unremarkable. This all appears to be chronic for him. Really no therapy needed that would require an inpatient admission. Patient does have Medicare so we should be able to set up transportation to his wound care doctor here in [facility] will put in a consult to case management for that as well as for evaluation for possible long-term care. We will continue home health. Will discharge him at this time Lab Data: Labs: Lab Results 04/14/21 Range/Units 17:00 WBC 6.7 (4.0-10.0) 10^3/ uL RBC 4.31 (4.1-5.3) 10^6/u L Hgb 13.4 (11.7-16.6) g/dL Hct 41.4 L (42.0-52.0) % MCV 96.1 H (80-94) fl MCH 31.1 (28.0-34.0) pg MCHC 32.4 (30.0-36.0) g/dL RDW 12.7 (12.1-15.1) % Plt Count 217 (130-400) 10^3/c mm MPV 10.7 H (7.4-10.4) fL Neut % (Auto) 42.7 % Lymph % (Auto) 25.8 % Young % (Auto) 12.2 % Eos % (Auto) 18.5 % Baso % (Auto) 0.7 % Neut # (Auto) 2.85 (1.8-7.7) 10^3/u L Lymph # (Auto) 1.7 (0.8-4.8) 10^3/u L Young # (Auto) 0.8 (0.2-0.9) 10^3/u L Eos # (Auto) 1.2 H (0.0-0.8) 10^3/u L Baso # (Auto) 0.1 (0.0-0.1) 10^3/u L Nucleated RBC % (a uto) 0 % Nucleated RBCs # 0.0 /100WBC Discharge Plan Discharge Prescriptions: No Action furosemide 40 mg tablet 40 mg PO DAILY RF: 0 lisinopril 5 mg tablet 5 mg PO DAILY RF: 0 hydrocodone-acetaminophen 5-325 mg tablet 1 tab PO Q6H PRN (Reason: Pain) RF: 0 ascorbate calcium (vitamin C) 500 mg tablet 500 mg PO BID RF: 0 Coding Level of Care Code ED [employer] Worker for [facility] Fwd Exam Comprehensive
[2021-04-14 17:23] LABS: Basophils # 0.1 10^3/uL (0.0-0.1); Basophils % 0.7 %; Eosinophils # 1.2 10^3/uL (0.0-0.8); Eosinophils % 18.5 %; Hematocrit 41.4 % (42.0-52.0); Hemoglobin 13.4 g/dL (11.7-16.6); Lymphocytes # 1.7 10^3/uL (0.8-4.8); Lymphocytes % 25.8 %; Mean Corpuscular HGB Conc 32.4 g/dL (30.0-36.0); Mean Corpuscular Hemoglobin 31.1 pg (28.0-34.0); Mean Corpuscular Volume 96.1 fl (80-94); Mean Platelet Volume 10.7 fL (7.4-10.4); Monocytes # 0.8 10^3/uL (0.2-0.9); Monocytes % 12.2 %; Neutrophils # 2.85 10^3/uL (1.8-7.7); Neutrophils % 42.7 %; Nucleated Red Blood Cells % 0 %; Platelet Count 217 10^3/cmm (130-400); Red Blood Count 4.31 10^6/uL (4.1-5.3); Red Cell Distribution Width 12.7 % (12.1-15.1); White Blood Count 6.7 10^3/uL (4.0-10.0)
[2021-04-14 17:54] LABS: Troponin(5th) Baseline 13 ng/L (0-15)
[2021-04-14 18:02] LABS: Alanine Aminotransferase 11 U/L (0-41); Albumin Level 3.1 g/dL (3.5-5.2); Alkaline Phosphatase 95 IU/L (40-130); Anion Gap 12.3 (5-19); Aspartate Amino Transferase 13 U/L (0-40); Blood Urea Nitrogen 15 mg/dL (6-20); Calcium 8.1 mg/dL (8.5-10.5); Carbon Dioxide 28 mmol/L (22-29); Chloride 101 mmol/L (98-107); Creatinine Clr Calc Pharmacy 144.0026; Glomerular Filtration Rate 139.9 mL/min (90-130); Glucose 97 mg/dL (65-115); Magnesium 2.1 mg/dL (1.7-2.3); NT Pro B Type Natriuretic Pept 88 pg/mL (0-125); Osmolality Calculated 285 mOsm/kg (285-295); Potassium 4.3 mmol/L (3.5-5.1); Sodium 137 mmol/L (136-145); Thyroid Stimulating Hormone 2.15 uIU/mL (0.27-4.20); Total Bilirubin 0.7 mg/dL (0.15-1.2); Total Protein 6.1 g/dL (6.6-8.7)
--- NOTE | 2021-04-14 19:10 | PC.NURSE ---
patient resting in bed, denies needs at this time.
--- NOTE | 2021-04-15 14:55 | DCPLANNER ---
material requirements planning manager had message to schedule a follow up appointment for patient with [facility], and to arrange transportation to the appointment. material requirements planning manager called [facility], spoke with Linda, gave clinic patients information, a follow up appointment was scheduled for Monday, April 21, 2021 at 8:[address] Read. material requirements planning manager called [facility], and arranged transportation for patient [place]. [place] [id number]. material requirements planning manager called patient, gave him the appointment information, and informed patient that transportation had been scheduled for patient, and that they would pick him up at 8:25 for an 8:45 appointment. material requirements planning manager also called Linda at [facility] and gave Linda the trip number for the visit.
--- NOTE | 2021-04-23 11:25 | DCPLANNER ---
Patient had a follow up appointment scheduled for 04.21.21 at [facility] - patient did attend appointment.
== END 2021-04-14 20:57 | disposition home or self-care (01) ==
PROVIDERS: Emergency Provider Family Medicine
DX: R53.1 Weakness (principal); I10 Essential (primary) hypertension
CPT/HCPCS: 71045; 80053; 83735; 83880; 84443; 84484; 85025; 93005; 99283

== ENCOUNTER 2021-04-21 09:24 | Outpatient (CLI) | payer MEDICAID, SELFPAY | END 2021-04-21 09:25 | disposition home or self-care (01) | LOC: WOUND 09:24 | PROVIDERS: Visit Provider Thoracic Surgery (Cardiothoracic Vascular Surgery) | DX: Z09 Encounter for follow-up examination after completed treatment for conditions other than malignant neoplasm (principal) | CPT/HCPCS: 99212 ==

== ENCOUNTER 2021-06-03 14:56 | Inpatient (IN) | payer MEDICAID, SELFPAY ==
[2021-06-03 14:57] VITALS: BP 156/89; PULSE 114; RESP 16; TEMP 36.4; O2SAT 100; BMI 30.1
[2021-06-03 15:58] VITALS: RESP 36
[2021-06-03] MEDS: morphine 4 mg/mL SDV 1 mL IVP (15:58)
--- NOTE | 2021-06-03 16:07 | ED_ITS ---
HPI - General Adult General: Chief complaint: General Medical Stated complaint: BILATERAL LEG PAIN Time Seen by Provider: 06/03/21 15:00 History of Present Illness: HPI narrative: Patient is a 55-year-old male with chronic diffuse dry/flaky skin presented to emergency room with complaints of worsening bilateral lower extremity leg pain. Patient says that he chronically has lower extremity leg pain and ulcers that has now worsened over the last few days. Patient denies any fever chills, chest pain, shortness, palpitation, lightheadedness at this time. Patient has been unable to follow-up with wound care the past. Onset: chronic Duration:ongoing Location:home Severity:moderate/severe Review of Systems Narrative: Constitutional: No fever, no chills. HEENT: No vision changes CV: No chest pain, no palpitations PULM: no cough, no dyspnea. GI: No abdominal pain, no N/V/D. : No dysuria MSKEL: No muscle pain SKIN: No new rashes, no lesions. NEURO: +diffuse dry/flaky rash HEME: No visible bruises PSYCH: Normal mood PFSH ED PFSH: Medical History (Updated 06/03/21 @ 17:04 by Sunil Carreno MD) Bilateral knee pain Complicated wound infection Congestive 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 systolic and diastolic Hypertension Lower extremity cellulitis Lymphedema Severe with weeping yellow crusty discharge going bilateral arms above the elbows and bilateral legs about the knees Malnutrition No pertinent family history Obesity Surgical History No pertinent past surgical history Social History Smoking and tobacco status: never smoked Alcohol intake: never Physical Exam Narrative: EXAM NARRATIVE: Head: Atraumatic Eyes: PERRL, conjunctiva without injection ENT: Dry membrane moist NECK: Supple, ROM intact LUNGS: LCTAB, no crackles/rhonchi CV: Sinus tachycardia ABDOMEN: Soft, nontender in all quadrants EXTREMITY: Normal ROM, mild ulcers in the lower extremities SKIN: diffuse dry scaly skins on the arms/legs/back NEURO: Awake and alert, no focal motor deficits PSYCH: Normal mood and affect Course Vital Signs: Vital signs: Vital Signs Temperature 97.6 F 06/03/21 14:57 Pulse Rate 114 H 06/03/21 14:57 Respiratory Rate 36 H 06/03/21 15:58 Blood Pressure 156/89 06/03/21 14:57 Pulse Oximetry 100 06/03/21 14:57 MDM - General Adult MDM Narrative: Medical decision making narrative: 55-year-old male with history of chronic skin disease presenting to the emergency room with concerns of leg pain and worsening leg wound. On exam, patient is afebrile, no to be tachycardic and dry. White count 10.2, baseline of 6. I do not suspect the patient has necrotizing soft tissue infection. Patient has chronic wounds in the lower extremity. Will give antibiotics and admit for serial observation and pain control. S/p zosyn and morphine for pain control. Disposition: Admission Lab Data: Labs: Lab Results 06/03/21 06/03/21 06/03/21 15:45 15:45 15:45 WBC 10.2 10^3/uL H 10 ^3/uL (4.0-10.0) RBC 3.99 10^6/uL L 10 ^6/uL (4.1-5.3) Hgb 12.8 g/dL g/dL (11.7-16.6) Hct 38.0 % L % (42.0-52.0) MCV 95.2 fl H fl (80-94) MCH 32.1 pg pg (28.0-34.0) MCHC 33.7 g/dL g/dL (30.0-36.0) RDW 13.9 % % (12.1-15.1) Plt Count 498 10^3/cmm H 10 ^3/cmm (130-400) MPV 9.0 fL fL (7.4-10.4) Neut % (Auto) 47.6 % % Lymph % (Auto) 24.2 % % Snyder % (Auto) 8.6 % % Eos % (Auto) 18.5 % % Baso % (Auto) 0.7 % % Neut # (Auto) 4.84 10^3/uL 10^3 /uL (1.8-7.7) Lymph # (Auto) 2.5 10^3/uL 10^3/ uL (0.8-4.8) Snyder # (Auto) 0.9 10^3/uL 10^3/ uL (0.2-0.9) Eos # (Auto) 1.9 10^3/uL H 10^ 3/uL (0.0-0.8) Baso # (Auto) 0.1 10^3/uL 10^3/ uL (0.0-0.1) Nucleated RBC % (a uto) 0 % % Nucleated RBCs # 0.0 /100WBC /100W BC Sodium 135 mmol/L L mmol /L (136-145) Potassium 4.5 mmol/L mmol/L (3.5-5.1) Chloride 101 mmol/L mmol/L (98-107) Carbon Dioxide 25 mmol/L mmol/L (22-29) Anion Gap 13.5 (5-19) BUN 11 mg/dL mg/dL (6-20) Creatinine 0.7 mg/dL mg/dL (0.7-1.2) GFR Calculation 117.1 mL/min mL/m in (90-130) Glucose 109 mg/dL mg/dL (65-115) Calculated Osmolal ity 280 mOsm/kg L mOs m/kg (285-295) Lactate 1.4 mmol/L mmol/L (0.5-2.2) Calcium 8.1 mg/dL L mg/dL (8.5-10.5) Total Bilirubin 0.6 mg/dL mg/dL (0.15-1.2) AST 18 U/L U/L (0-40) ALT 13 U/L U/L (0-41) Alkaline Phosphata se 108 IU/L IU/L (40-130) Total Protein 6.6 g/dL g/dL (6.6-8.7) Albumin 2.8 g/dL L g/dL (3.5-5.2) Globulin 3.8 g/dL g/dL (1.3-4.6) Lipase 43 U/L U/L (13-60) Discharge Plan Discharge Patient Disposition: Admitted As Inpatient Clinical Impression: Ulcer, Acute leg pain Condition: Stable Coding Level of Care Code 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
[2021-06-03 16:22] LABS: Basophils # 0.1 10^3/uL (0.0-0.1); Basophils % 0.7 %; Eosinophils # 1.9 10^3/uL (0.0-0.8); Eosinophils % 18.5 %; Hemoglobin 12.8 g/dL (11.7-16.6); Lymphocytes # 2.5 10^3/uL (0.8-4.8); Lymphocytes % 24.2 %; Mean Corpuscular HGB Conc 33.7 g/dL (30.0-36.0); Mean Corpuscular Hemoglobin 32.1 pg (28.0-34.0); Mean Corpuscular Volume 95.2 fl (80-94); Monocytes # 0.9 10^3/uL (0.2-0.9); Monocytes % 8.6 %; Neutrophils # 4.84 10^3/uL (1.8-7.7); Neutrophils % 47.6 %; Nucleated Red Blood Cells % 0 %; Platelet Count 498 10^3/cmm (130-400); Red Blood Count 3.99 10^6/uL (4.1-5.3); Red Cell Distribution Width 13.9 % (12.1-15.1); White Blood Count 10.2 10^3/uL (4.0-10.0)
[2021-06-03] MEDS: sodium chloride 0.9% 1,000 ML 999 ML IV ×2 (16:32→17:54)
[2021-06-03 16:43] LABS: Alanine Aminotransferase 13 U/L (0-41); Albumin Level 2.8 g/dL (3.5-5.2); Alkaline Phosphatase 108 IU/L (40-130); Aspartate Amino Transferase 18 U/L (0-40); Blood Urea Nitrogen 11 mg/dL (6-20); Calcium 8.1 mg/dL (8.5-10.5); Carbon Dioxide 25 mmol/L (22-29); Chloride 101 mmol/L (98-107); Globulin 3.8 g/dL (1.3-4.6); Glomerular Filtration Rate 117.1 mL/min (90-130); Glucose 109 mg/dL (65-115); Lactate (Lactic Acid level) 1.4 mmol/L (0.5-2.2); Lipase 43 U/L (13-60); Osmolality Calculated 280 mOsm/kg (285-295); Sodium 135 mmol/L (136-145); Total Bilirubin 0.6 mg/dL (0.15-1.2); Total Protein 6.6 g/dL (6.6-8.7)
[2021-06-03 16:46] LABS: Anion Gap 13.5 (5-19); Potassium 4.5 mmol/L (3.5-5.1)
--- NOTE | 2021-06-03 17:04 | XRR_ITS ---
PROCEDURE INFORMATION: Exam: XR Left Foot Exam date and time: 06/03/2021 5:04 PM Age: 55 years old Clinical indication: Edema; No, it is generalized; Additional info: Eval infection TECHNIQUE: Imaging protocol: XR Left foot. Views: 1 or 2 views. COMPARISON: CR XR foot LT 2V [id number] 03/20/2021 5:35 PM FINDINGS: Bones/joints: The bones are intact and normal alignment. Mild degenerative changes of the 1st metatarsophalangeal joint. Soft tissues: Thickened irregular toenail in the great toe. XR/XR foot LT 2V [id number] IMPRESSION: 1. No acute skeletal abnormality. Radiation Dose CTDIVOL = (mGy): DLP = (mGy-cm)
--- NOTE | 2021-06-03 17:04 | XRR_ITS ---
PROCEDURE INFORMATION: Exam: XR Left Tibia and Fibula Exam date and time: 06/03/2021 5:04 PM Age: 55 years old Clinical indication: Edema; No, it is generalized; Additional info: Eval infection TECHNIQUE: Imaging protocol: XR Left tibia and fibula. Views: 2 views. COMPARISON: CR XR tibia fibula LT 2V [id number] 03/20/2021 5:34 PM FINDINGS: Bones/joints: The bones are intact and in normal alignment. No fracture or dislocation. Soft tissues: Diffuse soft tissue edema. Skin irregularity in the distal calf region. XR/XR tibia fibula LT 2V [id number] IMPRESSION: 1. No acute skeletal abnormality. Radiation Dose CTDIVOL = (mGy): DLP = (mGy-cm)
--- NOTE | 2021-06-03 17:04 | XRR_ITS ---
PROCEDURE INFORMATION: Exam: XR Right Tibia and Fibula Exam date and time: 06/03/2021 5:04 PM Age: 55 years old Clinical indication: Edema; No, it is generalized; Additional info: Eval infection TECHNIQUE: Imaging protocol: XR Right tibia and fibula. Views: 2 views. COMPARISON: CR XR tibia fibula RT 2V [id number] 03/20/2021 5:28 PM FINDINGS: Bones/joints: The bones are intact and normal alignment. Soft tissues: Diffuse soft tissue edema. Skin irregularity in the distal calf and anterior whitley. XR/XR tibia fibula RT 2V [id number] IMPRESSION: 1. No acute skeletal abnormality. Radiation Dose CTDIVOL = (mGy): DLP = (mGy-cm)
--- NOTE | 2021-06-03 17:04 | XRR_ITS ---
PROCEDURE INFORMATION: Exam: XR Right Foot Exam date and time: 06/03/2021 5:04 PM Age: 55 years old Clinical indication: Edema; No, it is generalized; Additional info: Eval infection TECHNIQUE: Imaging protocol: XR Right foot. Views: 1 or 2 views. COMPARISON: CR XR foot RT 2V [id number] 03/20/2021 5:30 PM FINDINGS: Bones/joints: The bones are intact and in normal alignment. No fracture or dislocation. Soft tissues: Thickened irregular toenail in the great toe. Soft tissue swelling of the dorsal foot. XR/XR foot RT 2V [id number] IMPRESSION: 1. No acute skeletal abnormality. Radiation Dose CTDIVOL = (mGy): DLP = (mGy-cm)
[2021-06-03] MEDS: piperacillin-tazobactam 4.5 GM in sodium chloride 0.9% (plus) 50 ML IV (17:54)
--- NOTE | 2021-06-03 18:53 | P.HP_ITS ---
Providers/Chief Complaint Admitting Physician: Leonel Rosas MD Primary Care Provider: Chaparro Marvin MD Chief Complaint: BILATERAL LEG PAIN History of Present Illness Bg Mccauley is a 55 year old male with a past medical history of chronic venous stasis dermatitis bilateral lower extremities, bilateral extremity cellulitis, mixed congestive heart failure systolic and diastolic, who presents to [facility] due to complaints of bilateral extremity pain, swelling, edema, drainage. Patient has a history of chronic venous stasis dermatitis, lymphedema, bilateral extremity cellulitis, was recently discharged to [facility] for long-term antibiotic and wound care, was recently discharged home, currently managed at home, he lives by himself, he tells me that over the last few weeks he has developed increased swelling of his bilateral extremities, increased tenderness, warmth, swelling. He tells me that his primary care provider is working on setting up home health care for him but he does not understand why his legs have become more swollen, more tender, he has developed extensive flaking of his dermatitis of the bilateral extremities. The and the flaking also has spread up to both arms, currently on both forearms. No fevers, chills, nausea, vomiting. No history of prior rashes. No history of scabies. No history of HIV. No history of hepatitis. No history of celiac disease Review of Systems Const: Denies: fever(s), chills, fatigue or malaise Eyes: Denies: change in vision or blurry vision ENMT: Denies: nasal congestion Resp: Denies: dyspnea, productive cough, non-productive cough or wheezing GI: Denies: abdominal pain, nausea, vomiting, hematemesis, hematochezia or melena : Denies: flank pain, difficulty urinating, dysuria or urinary frequency Musc: Denies: neck pain or back pain Skin/Breast: Reports: rash, pruritus, erythema, skin tenderness, skin swell ing, changing lesions, changes in skin color and dry skin Neuro: Denies: headache(s), dizziness or vertigo Endo: Denies: polyuria Medications/Allergies Home Medications Medication Instructions Recorded Confirmed Last Taken Type aspirin 81 mg tablet,delayed 81 mg PO DAILY 05/14/21 05/18/21 Unknown History release furosemide 40 mg tablet 40 mg PO DAILY #30 tab 05/14/21 05/18/21 Unknown Rx lisinopril 5 mg tablet 5 mg PO DAILY #30 tab 05/14/21 05/18/21 Unknown Rx spironolactone 25 mg tablet 25 mg PO DAILY #30 tab 05/14/21 05/18/21 Unknown Rx Allergies Allergy/AdvReac Type Severity Reaction Status Date / Time No Known Allergies Allergy Verified 05/14/21 11:00 PFSH Acute PFSH: Medical History (Updated 06/03/21 @ 19:00 by Leonel Rosas MD) Bilateral knee pain Complicated wound infection Congestive 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 systolic and diastolic Hypertension Lower extremity cellulitis Lymphedema Severe with weeping yellow crusty discharge going bilateral arms above the elbows and bilateral legs about the knees Malnutrition No pertinent family history Obesity Surgical History No pertinent past surgical history Social History Smoking and tobacco status: never smoked Alcohol intake: never Vitals/I&O/Wt Last Vital Signs Temp 97.6 F 06/03/21 14:57 Pulse 114 H 06/03/21 14:57 Resp 36 H 06/03/21 15:58 BP 156/89 06/03/21 14:57 Pulse Ox 100 06/03/21 14:57 06/03/21 06/03/21 06/03/21 06:59 14:59 22:59 Intake Total 1000 / 1000 Balance 1000 / 1000 Weight last 48 hrs Weight 95.254 kg Physical Exam Const: COMMON NORMALS: no acute distress and patient oriented x3 HENMT: COMMON NORMALS: normocephalic HEAD & SCALP: normocephalic Eye: COMMON NORMALS: Equal, round and reactive pupils present GENERAL EYE: appearance normal, both eyes and all related structures Neck/C-Spine: COMMON NORMALS: full ROM and no lymphadenopathy THYROID: Thyroid normal Lymph: LYMPHATIC: no lymphadenopathy noted Resp: COMMON NORMALS: normal respiratory effort, No retractions, No use of accessory muscles and clear to auscultation bilaterally AUSCULTATION: clear to auscultation bilaterally Cardio: COMMON NORMALS: regular rate, regular rhythm, S1 normal heart sound present, S2 normal heart sound present, No gallops present (Cardio), No clicks present (Cardio) and No murmurs present (Cardio) RATE: regular rate RHYT HM: regular rhythm HEART SOUNDS: S1 normal heart sound present and S2 normal heart sound present GI: COMMON NORMALS: Normal to inspection, nondistended, normoactive bowel sounds present, Soft to palpation and non-tender Extremity: COMMON NORMALS: normal to inspection, full ROM and no pedal edema Neuro: COMMON NORMALS: patient oriented x3, CN's II-XII intact bilaterally and moves all extremities Skin: NARRATIVE SKIN EXAM: Bilateral lower extremities, in upper extremities, forearms, flaky rash, with multiple skin layers, skin layers Bilateral lower extremities, bilateral feet, open sores, open weepage, Data : 06/03/21 15:45 06/03/21 15:45 Micro: Microbiology 06/03/21 18:22 Blood Culture - Preliminary Blood SPECIMEN COLLECTED 06/03/21 18:21 Blood Culture - Preliminary Blood SPECIMEN COLLECTED A&P Assessment and plan (1) Lower extremity cellulitis: -Bilateral lower extremity cellulitis -However does have significant significant evidence of dermatitis? Multiple layers of skin, with flaking of skin, throughout bilateral lower extrem ities, also present in bilateral forearms of upper extremities -Does have open sores, bilateral feet, with active drainage -Differential includes Congolese scabies, dermatitis herpetiformis -Wound cultures in the past have showed Morganella morganii, Providencia stuarti, Staphylococcus aureus -His blood work does show significant eosinophilia Plan: -ESR, CRP, pro-Blayne, HIV, celiac panel, acute hepatitis panel, RPR -We will discuss with dermatology if we have a dermatoscope capability or skin b iopsy -For now will start on vancomycin and Zosyn -No areas of debridement that I can see -Full code -Lovenox for DVT prophylaxis Does have a history of mixed congestive heart failure, echocardiogram showed an EF of 45 to 50%, grade 2 diastolic dysfunction Lexiscan 1. Myocardial perfusion imaging revealing patchy areas of persistent decreased tracer uptake in the apical region, most likely are present attrition artifacts. 2. Normal LV ejection fraction of 54%. 3. LV wall motion analysis revealing no gross wall motion normalities. 4. Normal LV volume. 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
--- NOTE | 2021-06-03 19:00 | PC.NURSE ---
Pt arrvied via EMS from home where he live alone. EMS states pt was discharged from [facility]. Pt reports pain in both legs and feet. Pts clothing is extremely dirty and both sock are stuck to his feet. This RN and Dr. Carreno cut socks off pts feet. Pt reports pain 10/10, vss, pt placed on monitor. Pt changed out of his underware but is unable to turn or lie back and refuses to allow this RN to clean his buttocks
[2021-06-03 20:51] VITALS: RESP 18
[2021-06-03] MEDS: enoxaparin 40 mg/0.4 mL Syringe SUBCUT (20:51)
[2021-06-03] MEDS: FUROsemide 10 mg/mL SDV 4mL 40 MG IVP (20:51)
[2021-06-03] MEDS: morphine 4 mg/mL SDV 1 mL 1 MG IVP (20:51)
[2021-06-03] MEDS: amlodipine 10 mg Tablet PO (20:52)
[2021-06-03 21:12] LABS: Hepatitis A Antibody IgM Non-Reactive (Nonreactive); Hepatitis B Core IgM Non-Reactive (Nonreactive); Hepatitis B Surface Antigen Non-Reactive (Nonreactive); Hepatitis C Virus Antibody Non-Reactive (Nonreactive)
[2021-06-03 21:50] LABS: C Reactive Protein 66.5 mg/L (0.0-4.9)
[2021-06-03 21:57] LABS: Procalcitonin 0.06 ng/mL (0-0.5)
[2021-06-03 21:59] LABS: Rapid Plasma Reagin Syphilis Nonreactive (Nonreactive)
[2021-06-03 22:09] LABS: HIV 1 & 2 Antibody Non-Reactive (Non-Reactiv); HIV 1 & 2 Antigen Non-Reactive (Non-Reactiv)
--- NOTE | 2021-06-03 22:32 | PC.PHAR ---
Pharmacokinetic dosing service Date: 06/03/21 Time: 2229 Objective: Patient: Bg Mccauley Floor: 261-1 Age: 55 yo Serum creatinine: 0.7 mg/dL Height: 70.0 Inches Weight (kg): 95.254 Diagnosis: Relevant medical/social history: Cultures and sensitivities: Other labs: Assessment: IBW (kg): 73.00 Dosing wt(kg): 95.254 Estimated Creatinine clearance (ml/min): 123.1 CRCL method: Cockcroft and Gault using ibw(default). Drug selected: Vancomycin Loading dose (mg): 0 Vd (liters): 85.7 (factor used: 0.9 L/kg) Get (hr-1): 0.107 Half life (hrs): 6.48 Recommended dose: 1500 mg Interval: 8 hrs Infusion time (hrs): 1.5 Predicted peak (mcg/mL): 28.1 Predicted trough (mcg/mL): 14.02 Total body weight is being used for vancomycin dosing. Renal function is stable [ ] /unstable [ ] Recommendations: Give Vancomycin 1500 mg q 8 hrs with an expected Cpeak of 28.1 mcg/ml and an expected Ctrough of 14.02 mcg/ml Renal dosing of other antibiotics (review renal dosing of other medications and list guidelines here): Thank you for the consult, will continue to follow. Signature: Tawnya Jackman [facility]ly [facility]
[2021-06-03] MEDS: vancomycin 1,500 MG/300 ML PIGGYBACK 200 MG IV (22:57)
[2021-06-04] VITALS: BP 122/67; PULSE 110; RESP 17; TEMP 36.7; O2SAT 94
--- NOTE | 2021-06-04 00:27 | PC.NURSE ---
i reported high pulse 110 to nurse
[2021-06-04] MEDS: piperacillin-tazobactam 3.375 GM in sodium chloride 0.9% (plus) 50 ML IV ×3 (01:39→17:36)
[2021-06-04 04:00] VITALS: BP 110/64; PULSE 103; RESP 17; TEMP 36.8; O2SAT 92
--- NOTE | 2021-06-04 04:06 | PC.NURSE ---
i reported high pulse 110 to nurse
[2021-06-04] MEDS: vancomycin 1,500 MG/300 ML PIGGYBACK 200 MG IV ×2 (06:20→15:51)
[2021-06-04 07:13] VITALS: BP 127/72; PULSE 107; RESP 18; TEMP 36.8; O2SAT 97
[2021-06-04] MEDS: aspirin 81 mg EC Tablet PO (09:09)
[2021-06-04] MEDS: amlodipine 10 mg Tablet PO (09:10)
[2021-06-04] MEDS: lisinopril 10 mg Tablet PO (09:10)
[2021-06-04] MEDS: famotidine 20 mg Tablet PO ×2 (09:11→17:36)
--- NOTE | 2021-06-04 09:38 | PC.CHAP ---
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 assistant professor of history visit [] Patient/Family/Request visit [] Outpatient visit [] Follow-up visit [] Physician referral [] Code/Alert [x] Routine visit [] Staff referral [] Actively dying [] Patient sleeping [] Family support [] [] Out of room [] Palliative care [] [] Receiving care in room [] Pre-surgical visit [] Trauma [] Long length of stay [] ICU visit [] Other: Relational/Emotional Strength [x] Patient feels connected with others/family/visitors/staff [] Distress [] Loneliness/isolation [] Abandonment Spirituality of Patient [x] Person of Karon [x] Attends Nondenominational of their Karon []x Believes in Prayer [] Reads Bible or Mandaeism materials [] There are Spiritual issues to be addressed Firmware Engineer Interventions [] Prayer [] Active listening [] Non-anxious presence [] Spiritual/emotional support [] Crisis/trauma care [] Spiritual counseling [] Bereavement support [] Provided bereavement packet [] Provided Bible/devotional materials [] Provided toy/stuffed animal, coloring book to patient or family member [] Provided Communion [] Anointing/[place] [] Salvation [x] Completed spiritual assessment [] Other: Impact on Illness or Injury [] Angry [] Fearful [] Anxious [] Often cries [] Exhaustion [] Unable to work [] Unable to attend islam [] Unable to walk/stand [] Unable to read [] Unable to drive [] Unable to eat/drink [] Unable to sleep [] Unable to be with family [] Patient intubated [] Other: Summary Time spent with patient 10 min
[2021-06-04 10:35] LABS: Basophils # 0.1 10^3/uL (0.0-0.1); Basophils % 0.9 %; Eosinophils # 2.2 10^3/uL (0.0-0.8); Eosinophils % 24.5 %; Hematocrit 35.8 % (42.0-52.0); Hemoglobin 11.7 g/dL (11.7-16.6); Lymphocytes # 1.2 10^3/uL (0.8-4.8); Mean Corpuscular HGB Conc 32.7 g/dL (30.0-36.0); Mean Corpuscular Hemoglobin 31.6 pg (28.0-34.0); Mean Corpuscular Volume 96.8 fl (80-94); Mean Platelet Volume 8.7 fL (7.4-10.4); Monocytes # 0.7 10^3/uL (0.2-0.9); Monocytes % 8.2 %; Neutrophils # 4.69 10^3/uL (1.8-7.7); Neutrophils % 53.1 %; Nucleated Red Blood Cells % 0 %; Platelet Count 471 10^3/cmm (130-400); Red Cell Distribution Width 14.1 % (12.1-15.1); White Blood Count 8.8 10^3/uL (4.0-10.0)
[2021-06-04 10:52] LABS: Estmated Average Glucose 97
[2021-06-04 11:00] LABS: Alanine Aminotransferase 9 U/L (0-41); Albumin Level 2.4 g/dL (3.5-5.2); Alkaline Phosphatase 84 IU/L (40-130); Anion Gap 15.1 (5-19); Aspartate Amino Transferase 17 U/L (0-40); Blood Urea Nitrogen 12 mg/dL (6-20); Calcium 7.8 mg/dL (8.5-10.5); Carbon Dioxide 24 mmol/L (22-29); Chloride 100 mmol/L (98-107); Globulin 3.3 g/dL (1.3-4.6); Glomerular Filtration Rate 117.1 mL/min (90-130); Glucose 127 mg/dL (65-115); Magnesium 1.8 mg/dL (1.7-2.3); Osmolality Calculated 281 mOsm/kg (285-295); Phosphorus 2.9 mg/dL (2.5-4.5); Potassium 4.1 mmol/L (3.5-5.1); Sodium 135 mmol/L (136-145); Thyroid Stimulating Hormone 1.87 uIU/mL (0.27-4.20); Total Protein 5.7 g/dL (6.6-8.7)
[2021-06-04 12:00] VITALS: BP 137/72; PULSE 106; RESP 18; TEMP 36.8; O2SAT 94
--- NOTE | 2021-06-04 12:43 | PC.NURSE ---
Physical Therapy assisted patient into shower. Washed patient body with soap and water. Moderate amount of skin fluffed off with washing. Patient tolerated well. Patient did not attempt to help at all. Patient was assisted back to bed by Physical Therapy.
[2021-06-04 15:49] VITALS: BP 134/72; PULSE 89; RESP 18; TEMP 37.1; O2SAT 93
[2021-06-04] MEDS: permethrin cream 5% 60 gm 1 APPLIC TOPICAL (15:51)
--- NOTE | 2021-06-04 18:02 | P.PN_ITS ---
Subjective Subjective: Interval history: Patient was seen this morning, he tells me he is feeling a bit better, continues to have extensive flaking of the skin, he was given a shower by nursing staff, a lot of the flaking of the skin had come off, he is feeling a bit better In the afternoon I was able to take a superficial sample of this skin on his lower extremity, most of the flaking of his skin, I was able to review with a electrical engineering technologist, had evidence of scabies Vitals/I&O/Wt Last Vital Signs Temp 98.8 F 06/04/21 15:49 Pulse 89 06/04/21 15:49 Resp 18 06/04/21 15:49 BP 134/72 06/04/21 15:49 Pulse Ox 93 06/04/21 15:49 06/04/21 06/04/21 06/04/21 06:59 14:59 22:59 Intake Total 790 / 2900 830 / 830 300 / 1130 Output Total 1480 / 2380 400 / 400 Balance -690 / 520 430 / 430 300 / 730 Weight last 48 hrs Weight 95.254 kg Physical Exam Const: COMMON NORMALS: no acute distress and patient oriented x3 Resp: COMMON NORMALS: normal respiratory effort, No retractions, No use of accessory muscles and clear to auscultation bilaterally AUSCULTATION: clear to auscultation bilaterally Cardio: COMMON NORMALS: regular rate, regular rhythm, S1 normal heart sound present and S2 normal heart sound present RATE: regular rate RHYTHM: regular rhythm HEART SOUNDS: S1 normal heart sound present and S2 normal heart sound present GI: COMMON NORMALS: Normal to inspection, nondistended, normoactive bowel sounds present, Soft to palpation and non-tender PALPATION: Yes Soft to palpation Extremity: COMMON NORMALS: no pedal edema Neuro: COMMON NORMALS: patient oriented x3 Psych: COMMON NORMALS: mental status grossly normal Skin: NARRATIVE SKIN EXAM: Bilateral lower extremities, in upper extremities, forearms, flaky rash, with multiple skin layers, skin layers Bilateral lower extremities, bilateral feet, open sores, open weepage, Data : 06/04/21 10:02 06/04/21 10:02 Micro: Microbiology 06/03/21 18:22 Blood Culture - Preliminary Blood 06/03/21 18:21 Blood Culture - Preliminary Blood SPECIMEN COLLECTED A&P Assessment and plan (1) [place] scabies: -Poor hygiene -Bilateral lower extremities, bilateral upper extremities -Does have eosinophilia -Skin scraping was taken to dermatology for reviewing, with findings of mITE -We will obtain official skin biopsy -Start oral ivermectin 200 mg/kg on day 1, 2, 5, 8, 9, 15, 22 -Topical permethrin, unfortunately we have a shortage preferentially 3 times daily, for now once daily, until Monday once we have enough supply then will go to 3 times daily -Continue contact precautions Status: Acute (2) Lower extremity cellulitis: -Bilateral lower extremity cellulitis -Does have open sores, bilateral feet, with active drainage -Wound cultures in the past have showed Morganella morganii, Providencia stuarti, Staphylococcus aureus -His blood work does show significant eosinophilia Plan: -For now will start on vancomycin and Zosyn -No areas of debridement that I can see -Full code -Lovenox for DVT prophylaxis Does have a history of mixed congestive heart failure, echocardiogram showed an EF of 45 to 50%, grade 2 diastolic dysfunction Lexiscan 1. Myocardial perfusion imaging revealing patchy areas of persistent decreased tracer uptake in the apical region, most likely are present attrition artifacts. 2. Normal LV ejection fraction of 54%. 3. LV wall motion analysis revealing no gross wall motion normalities. 4. Normal LV volume. 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
--- NOTE | 2021-06-04 19:03 | PC.NURSE ---
Report to Eun HOUSER at this time.
[2021-06-04 20:00] VITALS: BP 111/63; PULSE 93; RESP 18; TEMP 36.6; O2SAT 96
[2021-06-04] MEDS: enoxaparin 40 mg/0.4 mL Syringe SUBCUT (20:44)
[2021-06-04] MEDS: vancomycin 1,500 MG/300 ML PIGGYBACK 150 MG IV (22:01)
[2021-06-04 23:36] LABS: Vancomycin Trough 51.8 ug/mL (10-15)
--- NOTE | 2021-06-04 23:38 | PC.PHAR ---
VANCOMYCIN TROUGH CAME BACK CRITICAL. NURSE HUNG THE VANCOMYCIN 1 HOUR EARLY AND LAB TIM TROUGH 40 MIN LATE. THE DOSE WAS CURRENTLY INFUSING WHILE TROUGH WAS DRAWN. DISREGARD TROUGH FROM 06/03 @2200 thanks, Tawnya Jackman [facility]
[2021-06-05] VITALS: BP 118/75; PULSE 74; RESP 19; TEMP 36.5; O2SAT 97
[2021-06-05] MEDS: piperacillin-tazobactam 3.375 GM in sodium chloride 0.9% (plus) 50 ML IV (01:31)
[2021-06-05 04:00] VITALS: BP 118/75; PULSE 68; RESP 18; TEMP 36.6; O2SAT 95
[2021-06-05 06:09] LABS: Basophils % 0.5 %; Eosinophils # 3.1 10^3/uL (0.0-0.8); Eosinophils % 37.3 %; Hematocrit 36.4 % (42.0-52.0); Hemoglobin 11.9 g/dL (11.7-16.6); Lymphocytes # 1.3 10^3/uL (0.8-4.8); Lymphocytes % 15.6 %; Mean Corpuscular HGB Conc 32.7 g/dL (30.0-36.0); Mean Corpuscular Hemoglobin 31.9 pg (28.0-34.0); Mean Corpuscular Volume 97.6 fl (80-94); Mean Platelet Volume 8.3 fL (7.4-10.4); Monocytes # 0.8 10^3/uL (0.2-0.9); Monocytes % 9.7 %; Neutrophils # 3.01 10^3/uL (1.8-7.7); Neutrophils % 36.5 %; Nucleated Red Blood Cells % 0 %; Platelet Count 423 10^3/cmm (130-400); Red Blood Count 3.73 10^6/uL (4.1-5.3); Red Cell Distribution Width 14.2 % (12.1-15.1); White Blood Count 8.2 10^3/uL (4.0-10.0)
[2021-06-05 06:29] LABS: Alanine Aminotransferase 8 U/L (0-41); Albumin Level 2.2 g/dL (3.5-5.2); Alkaline Phosphatase 77 IU/L (40-130); Anion Gap 12.2 (5-19); Aspartate Amino Transferase 14 U/L (0-40); Blood Urea Nitrogen 13 mg/dL (6-20); Calcium 7.8 mg/dL (8.5-10.5); Carbon Dioxide 24 mmol/L (22-29); Chloride 102 mmol/L (98-107); Globulin 3.5 g/dL (1.3-4.6); Glomerular Filtration Rate 100.4 mL/min (90-130); Glucose 86 mg/dL (65-115); Osmolality Calculated 277 mOsm/kg (285-295); Phosphorus 3.1 mg/dL (2.5-4.5); Potassium 4.2 mmol/L (3.5-5.1); Sodium 134 mmol/L (136-145); Total Bilirubin 0.5 mg/dL (0.15-1.2); Total Protein 5.7 g/dL (6.6-8.7)
[2021-06-05 06:35] LABS: Vancomycin Trough 33.1 ug/mL (10-15)
[2021-06-05 07:37] VITALS: BP 109/68; PULSE 87; RESP 16; TEMP 36.4; O2SAT 97
[2021-06-05] MEDS: vancomycin 1,000 MG in sodium chloride 0.9% 250 ML 250 MG IV (08:23)
[2021-06-05] MEDS: famotidine 20 mg Tablet PO ×2 (08:24→17:37)
[2021-06-05] MEDS: aspirin 81 mg EC Tablet PO (08:24)
[2021-06-05] MEDS: lisinopril 10 mg Tablet PO (08:24)
[2021-06-05] MEDS: amlodipine 10 mg Tablet PO (08:24)
[2021-06-05] MEDS: doxycycline 100 mg Tablet PO ×2 (09:17→17:37)
[2021-06-05] MEDS: amoxicillin-clav 875-125 mg Tablet 1 TAB PO ×2 (09:18→17:37)
[2021-06-05 11:26] VITALS: BP 115/71; PULSE 73; RESP 18; TEMP 36.9; O2SAT 94
--- NOTE | 2021-06-05 13:08 | P.PN_ITS ---
Subjective Subjective: Interval history: Patient was seen this morning, he tells me that he is feeling better, he tells me that he continues to feel weak, she has generalized weakness, has trouble ambulating given his severe amount of crusting from his [place] scabies, especially in his folds, of his knees he tells me that he can take care of himself, and he wants to go to a skilled nursing Vitals/I&O/Wt Last Vital Signs Temp 98.4 F 06/05/21 11:26 Pulse 73 06/05/21 11:26 Resp 18 06/05/21 11:26 BP 115/71 06/05/21 11:26 Pulse Ox 94 06/05/21 11:26 06/04/21 06/05/21 06/05/21 22:59 06:59 14:59 Intake Total 830 / 1660 590 / 2250 120 / 120 Output Total 450 / 850 500 / 500 Balance 380 / 810 590 / 1400 -380 / -380 Weight last 48 hrs Weight 95.254 kg Physical Exam Const: COMMON NORMALS: no acute distress and patient oriented x3 Resp: COMMON NORMALS: normal respiratory effort, No retractions, No use of accessory muscles and clear to auscultation bilaterally AUSCULTATION: clear to auscultation bilaterally Cardio: COMMON NORMALS: regular rate, regular rhythm, S1 normal heart sound present and S2 normal heart sound present RATE: regular rate RHYTHM: regular rhythm HEART SOUNDS: S1 normal heart sound present and S2 normal heart sound present GI: COMMON NORMALS: Normal to inspection, nondistended, normoactive bowel sounds present, Soft to palpation and non-tender PALPATION: Yes Soft to palpation Neuro: COMMON NORMALS: patient oriented x3 Psych: COMMON NORMALS: mental status grossly normal Skin: NARRATIVE SKIN EXAM: Bilateral lower extremities, in upper extremities, forearms, flaky rash, with multiple skin layers, skin layers, improved Bilateral lower extremities, bilateral feet, open sores, open weepage, Data : 06/05/21 06:02 06/05/21 06:02 Micro: Microbiology 06/03/21 18:22 Blood Culture - Preliminary Blood Corynebacterium species 06/03/21 18:21 Blood Culture - Preliminary Blood NEGATIVE TO DATE A&P Assessment and plan (1) [place] scabies: -Poor hygiene -Bilateral lower extremities, bilateral upper extremities -Does have eosinophilia -Skin scraping was taken to dermatology for reviewing, with findings of mITE -We will obtain official skin biopsy -Start oral ivermectin 200 mg/kg on day 1, 2, 5, 8, 9, 15, 22 -Topical permethrin, unfortunately we have a shortage preferentially 3 times daily, for now once daily, until Monday once we have enough supply then will go to 3 times daily -Continue contact precautions Status: Acute (2) Lower extremity cellulitis: -Bilateral lower extremity cellulitis -Does have open sores, bilateral feet, with active drainage -Wound cultures in the past have showed Morganella morganii, Providencia stuarti, Staphylococcus aureus -His blood work does show significant eosinophilia Plan: -Elevated vancomycin trough, stop actomyosin, Zosyn and switch to Augmentin doxycycline -No areas of debridement that I can see -Full code -Lovenox for DVT prophylaxis Does have a history of mixed congestive heart failure, echocardiogram showed an EF of 45 to 50%, grade 2 diastolic dysfunction Lexiscan 1. Myocardial perfusion imaging revealing patchy areas of persistent decreased tracer uptake in the apical region, most likely are present attrition artifacts. 2. Normal LV ejection fraction of 54%. 3. LV wall motion analysis revealing no gross wall motion normalities. 4. Normal LV volume. -Lasix 40 mg IV once daily as needed PT OT Needs skilled nursing placement Status: Acute Qualifiers: Laterality: right Qualified Code(s): L03.115 - Cellulitis of right lower limb (3) Congestive heart failure due to cardiomyopathy: Status: Acute (4) Venous stasis dermatitis of both lower extremities: Status: Acute (5) Lymphedema: Status: Acute (6) Hypertension: Status: Acute Attestations Medical Necessity Statement*: Patient requires hospitalization for [place] scabies, lower extremity cellulitis, deconditioning Coding Level of Care Code Acute Ammunition Components Inspector for [facility] Diagnoses [place] scabies B86 Lower extremity cellulitis L03.115 Laterality: right Congestive heart failure due to cardiomyopathy I50.9; I42.9 Venous stasis dermatitis of both lower extremities I87.2 Lymphedema I89.0 Hypertension I10
--- NOTE | 2021-06-05 14:27 | P.CONIM_ITS ---
Providers/Reason For Consult Consulting Physician/Specialty*: General Surgery Dr. Sawyer Reason for Consult*: Skin biopsy Attending Physician: Leonel Rosas MD Primary Care Provider: Chaparro Marvin MD History of Present Illness History of Present Illness Bg Mccauley is a 55 year old male who was admitted to the hospital with history of chronic venous sufficiency who presented with erythematous rash and flaky skin which initially started in the right arm but involves all 4 extrem ities. Patient denies any fevers or chills. Denies any history of trauma. The case was reviewed with bead wire insulator and skin scrapings showed findings consistent with scabies Review of Systems General: Reports: 10 or more systems reviewed and unremarkable except in HPI and below Meds/Allergies Home Medications and Allergies Home Medications Medication Instructions Recorded Confirmed Last Taken Type aspirin 81 mg tablet,delayed 81 mg PO DAILY 05/14/21 05/18/21 Unknown History release furosemide 40 mg tablet 40 mg PO DAILY #30 tab 05/14/21 05/18/21 Unknown Rx lisinopril 5 mg tablet 5 mg PO DAILY #30 tab 05/14/21 05/18/21 Unknown Rx spironolactone 25 mg tablet 25 mg PO DAILY #30 tab 05/14/21 05/18/21 Unknown Rx ivermectin 18,000 mcg PO ONCE 7 Days #42 tab 06/04/21 Unknown Rx Allergies Allergy/AdvReac Type Severity Reaction Status Date / Time No Known Allergies Allergy Verified 05/14/21 11:00 Current Medications Current Medications Generic Name Dose Route Start Last Admin Trade Name Freq PRN Reason Stop Dose Admin Amlodipine Besylate 10 mg 06/03/21 20:12 06/05/21 08:24 Amlodipine 10 Mg Tablet PO 10 mg DAILY GENEVA Administration Amoxicillin/Clavulanate Potassium 1 tab 06/05/21 09:00 06/05/21 09:18 Amoxicillin-Clav 875-125 Mg Tablet PO 1 tab BID GENEVA Administration Protocol Aspirin 81 mg 06/04/21 09:00 06/05/21 08:24 Aspirin 81 Mg Ec Tablet PO 81 mg DAILY GENEVA Administration Doxycycline Monohydrate 100 mg 06/05/21 09:00 06/05/21 09:17 Doxycycline 100 Mg Tablet PO 100 mg BID GENEVA Administration Protocol Enoxaparin Sodium 40 mg 06/03/21 21:00 06/04/21 20:44 Enoxaparin 40 Mg/0.4 Ml Syringe SUBCUT 40 mg Q24H GENEVA Administration Famotidine 20 mg 06/04/21 09:00 06/05/21 08:24 Famotidine 20 Mg Tablet PO 20 mg BID GENEVA Administration Lisinopril 10 mg 06/04/21 09:00 06/05/21 08:24 Lisinopril 10 Mg Tablet PO 10 mg DAILY GENEVA Administration Morphine Sulfate 1 mg 06/03/21 20:12 06/03/21 20:51 Morphine 4 Mg/Ml Sdv 1 Ml IVP 1 mg Q4H PRN Administration SEVERE PAIN Non-Formulary 6 each 06/04/21 18:00 06/04/21 17:38 Medication* PO 06/05/21 18:01 6 each Ivermectin 3mg* DAILY@1800 GENEVA Administration Permethrin 1 applic 06/04/21 16:00 06/04/21 15:51 Permethrin Cream 5% 60 Gm TOPICAL 1 applic Q24H GENEVA Administration PFSH Acute PFSH: Medical History (Updated 06/04/21 @ 18:04 by Leonel Rosas MD) Bilateral knee pain Complicated wound infection Congestive 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 systolic and diastolic Hypertension Lower extremity cellulitis Lymphedema Severe with weeping yellow crusty discharge going bilateral arms above the elbows and bilateral legs about the knees Malnutrition No pertinent family history Obesity Surgical History No pertinent past surgical history Social History Smoking and tobacco status: never smoked Alcohol intake: never Vitals/I&O/Wt Last Vital Signs Temp 98.4 F 06/05/21 11:26 Pulse 73 06/05/21 11:26 Resp 18 06/05/21 11:26 BP 115/71 06/05/21 11:26 Pulse Ox 94 06/05/21 11:26 06/04/21 06/05/21 06/05/21 22:59 06:59 14:59 Intake Total 830 / 2250 590 / 2250 120 / 120 Output Total 450 / 850 500 / 500 Balance 380 / 1400 590 / 1400 -380 / -380 Weight last 48 hrs Weight 210 lb Physical Exam Narrative: EXAM NARRATIVE: HEENT: Normocephalic Eye: Sclera /conjunctiva normal Abdomen: Soft to palpation Neurological: Oriented to place person and time Skin: Intact, sensitive flaky skin with mild underlying erythema involving all 4 extremities, is venous stasis ulcers bilateral lower extremities Data Micro: Micro: Microbiology 06/03/21 18:22 Blood Culture - Pr eliminary Blood Corynebacterium species 06/03/21 18:21 Blood Culture - Pr eliminary Blood NEGATIVE TO MALISSA E A&P Assessment and plan (1) [place] scabies: 55-year-old male with comorbidities with skin scrapings consistent with [place] scabies. Consent obtained for skin biopsy. Status: Acute Consult Attestations Medical Necessity Statement: As per attending physician Coding Level of Care Code Acute Patient Services Specialist for [facility] Fwd Diagnoses [place] scabies B86
--- NOTE | 2021-06-05 14:31 | P.PCN_ITS ---
Procedure/Consent Time out: Time Out Performed: Yes Consent: Consent for Procedure: Consent obtained from patient Procedure Narrative: Preoperative diagnosis: Extensive scaly skin with erythematous rash, skin scrapings consistent with [place] scabies Postop diagnosis: Same, skin scrapings consistent with [place] scabies Procedure: Punch biopsy x2 right thigh Surgeon: Silverio Anesthesia: Local anesthesia Description of procedure: The patient's right thigh was prepped and draped in a sterile manner and 1% lidocaine infiltrated into the skin. A 4 mm punch biopsy was used to obtain 2 specimens which was sent in formalin to pathology. Hemostasis achieved with the silver nitrate sticks. Antibiotic cream and sterile dressings applied. Patient tolerated the procedure well. Acute Procedures Epistaxis Control: Time out performed: Yes
[2021-06-05] MEDS: neomycin-poly-bacitracin oint 28 gm 1 APPLIC TOPICAL (15:19)
[2021-06-05] MEDS: lidocaine 1% INJ 20 mL 5 ML IV (15:21)
[2021-06-05 15:22] VITALS: BP 108/69; PULSE 103; RESP 14; TEMP 36.8; O2SAT 92
[2021-06-05] MEDS: permethrin cream 5% 60 gm 1 APPLIC TOPICAL (16:27)
--- NOTE | 2021-06-05 18:58 | PC.NURSE ---
Report to Eun HOUSER at this time.
[2021-06-05 20:00] VITALS: BP 121/68; PULSE 99; RESP 16; TEMP 36.5; O2SAT 96
[2021-06-05] MEDS: enoxaparin 40 mg/0.4 mL Syringe SUBCUT (20:24)
--- NOTE | 2021-06-05 20:43 | PC.NURSE ---
Pt refusing gown and linen change. Drainage from extremities soiling gown and linens with skin flakes in bed. Education provided to patient on hygiene and comfort from clean items. Continued to refuse.
[2021-06-06] VITALS: BP 125/71; PULSE 95; RESP 16; TEMP 36.8; O2SAT 96
[2021-06-06 04:00] VITALS: BP 118/71; PULSE 94; RESP 16; TEMP 36.6; O2SAT 94
[2021-06-06 05:25] LABS: Basophils % 0.4 %; Eosinophils # 1.5 10^3/uL (0.0-0.8); Eosinophils % 21.5 %; Hematocrit 35.6 % (42.0-52.0); Hemoglobin 11.4 g/dL (11.7-16.6); Lymphocytes # 1.3 10^3/uL (0.8-4.8); Lymphocytes % 18.2 %; Mean Corpuscular Hemoglobin 31.5 pg (28.0-34.0); Mean Corpuscular Volume 98.3 fl (80-94); Mean Platelet Volume 8.4 fL (7.4-10.4); Monocytes # 0.6 10^3/uL (0.2-0.9); Monocytes % 8.1 %; Neutrophils # 3.54 10^3/uL (1.8-7.7); Neutrophils % 51.2 %; Nucleated Red Blood Cells % 0 %; Platelet Count 459 10^3/cmm (130-400); Red Blood Count 3.62 10^6/uL (4.1-5.3); Red Cell Distribution Width 14.1 % (12.1-15.1); White Blood Count 6.9 10^3/uL (4.0-10.0)
[2021-06-06 05:49] LABS: Alanine Aminotransferase 7 U/L (0-41); Albumin Level 2.3 g/dL (3.5-5.2); Alkaline Phosphatase 68 IU/L (40-130); Anion Gap 11.8 (5-19); Aspartate Amino Transferase 12 U/L (0-40); Blood Urea Nitrogen 13 mg/dL (6-20); Carbon Dioxide 24 mmol/L (22-29); Chloride 105 mmol/L (98-107); Globulin 3.7 g/dL (1.3-4.6); Glomerular Filtration Rate 172.6 mL/min (90-130); Glucose 90 mg/dL (65-115); Osmolality Calculated 284 mOsm/kg (285-295); Phosphorus 3.1 mg/dL (2.5-4.5); Potassium 3.8 mmol/L (3.5-5.1); Sodium 137 mmol/L (136-145); Total Bilirubin 0.4 mg/dL (0.15-1.2)
[2021-06-06 08:00] VITALS: BP 120/77; PULSE 72; RESP 18; TEMP 36.8; O2SAT 94
[2021-06-06] MEDS: doxycycline 100 mg Tablet PO ×2 (08:39→17:12)
[2021-06-06] MEDS: amlodipine 10 mg Tablet PO (08:39)
[2021-06-06] MEDS: amoxicillin-clav 875-125 mg Tablet 1 TAB PO ×2 (08:39→17:12)
[2021-06-06] MEDS: famotidine 20 mg Tablet PO ×2 (08:39→17:12)
[2021-06-06] MEDS: aspirin 81 mg EC Tablet PO (08:39)
[2021-06-06] MEDS: lisinopril 10 mg Tablet PO (08:45)
[2021-06-06 11:03] VITALS: BP 144/79; PULSE 100; RESP 16; TEMP 36.7; O2SAT 94
[2021-06-06 14:40] VITALS: BP 134/72; PULSE 103; RESP 16; TEMP 36.8; O2SAT 94
--- NOTE | 2021-06-06 16:08 | PM.PN ---
Subjective Subjective: Interval history: Patient was seen this morning, he tells me that he has had a bowel movement, he is feeling a bit better, no nausea, no vomiting Vitals/I&O/Wt Last Vital Signs Temp 98.3 F 06/06/21 14:40 Pulse 103 H 06/06/21 14:40 Resp 16 06/06/21 14:40 BP 134/72 06/06/21 14:40 Pulse Ox 94 06/06/21 14:40 06/06/21 06/06/21 06/06/21 06:59 14:59 22:59 Intake Total 240 / 240 Output Total Balance 240 / 240 Physical Exam Const: COMMON NORMALS: no acute distress and patient oriented x3 Resp: COMMON NORMALS: normal respiratory effort, No retractions, No use of accessory muscles and clear to auscultation bilaterally AUSCULTATION: clear to auscultation bilaterally Cardio: COMMON NORMALS: regular rate, regular rhythm, S1 normal heart sound present and S2 normal heart sound present RATE: regular rate RHYTHM: regular rhythm HEART SOUNDS: S1 normal heart sound present and S2 normal heart sound present GI: COMMON NORMALS: Normal to inspection, nondistended, normoactive bowel sounds present, Soft to palpation, non-tender and No hepatosplenomegaly present PALPATION: Yes Soft to palpation and Yes No hepatosplenomegaly present Extremity: COMMON NORMALS: no pedal edema Neuro: COMMON NORMALS: patient oriented x3 Psych: COMMON NORMALS: mental status grossly normal Skin: NARRATIVE SKIN EXAM: Bilateral lower extremities, in upper extremities, forearms, flaky rash, with multiple skin layers, skin layers, improved Bilateral lower extremities, bilateral feet, open sores, open weepage, Data : 06/06/21 05:10 06/06/21 05:10 A&P Assessment and plan (1) [place] scabies: -Poor hygiene -Bilateral lower extremities, bilateral upper extremities -Does have eosinophilia -Skin scraping was taken to dermatology for reviewing, with findings of mITE -We will obtain official skin biopsy -Start oral ivermectin 200 mg/kg on day 1, 2, 5, 8, 9, 15, 22 -Topical permethrin, unfortunately we have a shortage preferentially 3 times daily, for now once daily, until Monday once we have enough supply then will go to 3 times daily -Continue contact precautions Status: Acute (2) Lower extremity cellulitis: -Bilateral lower extremity cellulitis -Does have open sores, bilateral feet, with active drainage -Wound cultures in the past have showed Morganella morganii, Providencia stuarti, Staphylococcus aureus -His blood work does show significant eosinophilia Plan: -Antibiotics de-escalate to Augmentin and doxycycline -No areas of debridement that I can see -Full code -Lovenox for DVT prophylaxis Does have a history of mixed congestive heart failure, echocardiogram showed an EF of 45 to 50%, grade 2 diastolic dysfunction Lexiscan 1. Myocardial perfusion imaging revealing patchy areas of persistent decreased tracer uptake in the apical region, most likely are present attrition artifacts. 2. Normal LV ejection fraction of 54%. 3. LV wall motion analysis revealing no gross wall motion normalities. 4. Normal LV volume. -Lasix 40 mg IV once daily as needed PT OT Needs [facility] Status: Acute Qualifiers: Laterality: right Qualified Code(s): L03.115 - Cellulitis of right lower limb (3) Congestive heart failure due to cardiomyopathy: Status: Acute (4) Venous stasis dermatitis of both lower extremities: Status: Acute (5) Lymphedema: Status: Acute (6) Hypertension: Status: Acute (7) Physical deconditioning: Status: Acute (8) Protein calorie malnutrition: Status: Acute Attestations Medical Necessity Statement*: Patient requires hospitalization for [place] scabies, cellulitis, deconditioning, protein calorie malnutrition Coding Level of Care Code Acute Psychologist Counseling for [facility] Fwd Diagnoses [place] scabies B86 Lower extremity cellulitis L03.115 Laterality: right Congestive heart failure due to cardiomyopathy I50.9; I42.9 Venous stasis dermatitis of both lower extremities I87.2 Lymphedema I89.0 Hypertension I10 Physical deconditioning R53.81 Protein calorie malnutrition E46
[2021-06-06] MEDS: permethrin cream 5% 60 gm 1 APPLIC TOPICAL (18:02)
[2021-06-06 20:00] VITALS: BP 103/62; PULSE 98; RESP 17; TEMP 36.6; O2SAT 96
[2021-06-06] MEDS: enoxaparin 40 mg/0.4 mL Syringe SUBCUT (21:02)
[2021-06-07] VITALS: BP 99/58; PULSE 93; RESP 16; TEMP 37; O2SAT 93
[2021-06-07 04:00] VITALS: BP 104/58; PULSE 78; RESP 16; TEMP 36.6; O2SAT 96
[2021-06-07 06:01] LABS: Basophils % 0.3 %; Eosinophils # 1.6 10^3/uL (0.0-0.8); Eosinophils % 21.5 %; Hematocrit 33.5 % (42.0-52.0); Hemoglobin 10.9 g/dL (11.7-16.6); Lymphocytes # 1.8 10^3/uL (0.8-4.8); Lymphocytes % 23.5 %; Mean Corpuscular HGB Conc 32.5 g/dL (30.0-36.0); Mean Corpuscular Hemoglobin 32.4 pg (28.0-34.0); Mean Corpuscular Volume 99.7 fl (80-94); Mean Platelet Volume 9.3 fL (7.4-10.4); Monocytes # 0.8 10^3/uL (0.2-0.9); Monocytes % 9.9 %; Neutrophils # 3.36 10^3/uL (1.8-7.7); Neutrophils % 44.3 %; Nucleated Red Blood Cells % 0 %; Platelet Count 345 10^3/cmm (130-400); Red Blood Count 3.36 10^6/uL (4.1-5.3); Red Cell Distribution Width 14.6 % (12.1-15.1); White Blood Count 7.6 10^3/uL (4.0-10.0)
[2021-06-07 08:00] VITALS: BP 117/67; PULSE 81; RESP 17; TEMP 37; O2SAT 98
[2021-06-07 08:03] LABS: Chloride 107 mmol/L (98-107); Potassium 4.1 mmol/L (3.5-5.1)
[2021-06-07 08:18] LABS: Alanine Aminotransferase 9 U/L (0-41); Albumin Level 2.3 g/dL (3.5-5.2); Alkaline Phosphatase 60 IU/L (40-130); Anion Gap 12.1 (5-19); Aspartate Amino Transferase 16 U/L (0-40); Blood Urea Nitrogen 19 mg/dL (6-20); Calcium 7.9 mg/dL (8.5-10.5); Carbon Dioxide 25 mmol/L (22-29); Globulin 3.3 g/dL (1.3-4.6); Glomerular Filtration Rate 117.1 mL/min (90-130); Glucose 89 mg/dL (65-115); Osmolality Calculated 292 mOsm/kg (285-295); Sodium 140 mmol/L (136-145); Total Bilirubin 0.3 mg/dL (0.15-1.2); Total Protein 5.6 g/dL (6.6-8.7)
[2021-06-07] MEDS: amoxicillin-clav 875-125 mg Tablet 1 TAB PO ×2 (10:45→17:11)
[2021-06-07] MEDS: doxycycline 100 mg Tablet PO ×2 (10:45→17:12)
[2021-06-07] MEDS: amlodipine 10 mg Tablet PO (10:46)
[2021-06-07] MEDS: aspirin 81 mg EC Tablet PO (10:46)
[2021-06-07] MEDS: famotidine 20 mg Tablet PO ×2 (10:46→17:12)
[2021-06-07] MEDS: lisinopril 10 mg Tablet PO (10:46)
[2021-06-07 12:00] VITALS: BP 126/70; PULSE 81; RESP 16; TEMP 36.5; O2SAT 100
[2021-06-07 14:17] LABS: Immunoglobulin A 498 mg/dL (47-310)
[2021-06-07 14:53] LABS: COMPLEMENT, TOTAL (CH50) >60 U/mL (31-60)
[2021-06-07 14:58] LABS: COMPLEMENT COMPONENT C3C 117 mg/dL (82-185); COMPLEMENT COMPONENT C4C 33 mg/dL (15-53)
[2021-06-07 15:09] LABS: Erythrocyte Sedimentation Rate 28 mm/hr (0-10)
[2021-06-07 15:26] VITALS: BP 122/70; PULSE 90; RESP 18; TEMP 36.8; O2SAT 99
[2021-06-07] MEDS: permethrin cream 5% 60 gm 1 APPLIC TOPICAL ×2 (17:11→22:43)
--- NOTE | 2021-06-07 19:43 | PM.PN ---
Subjective Subjective: Interval history: Reports he is doing okay. Denies chills, fever, significant pain. Vitals/I&O/Wt Last Vital Signs Temp 98.3 F 06/07/21 15:26 Pulse 90 06/07/21 15:26 Resp 18 06/07/21 15:26 BP 122/70 06/07/21 15:26 Pulse Ox 99 06/07/21 15:26 06/07/21 06/07/21 06/07/21 06:59 14:59 22:59 Intake Total 480 / 480 220 / 700 Output Total 150 / 600 Balance -150 / 1200 480 / 480 220 / 700 Physical Exam Const: COMMON NORMALS: no acute distress, patient oriented x3 and alert GENERAL APPEARANCE: frail appearing ORIENTATION/CONSCIOUSNESS: Yes awake HENMT: COMMON NORMALS: oropharynx normal Neck/C-Spine: COMMON NORMALS: no JVD Resp: COMMON NORMALS: normal respiratory effort and clear to auscultation bilaterally AUSCULTATION: clear to auscultation bilaterally Cardio: COMMON NORMALS: no JVD, regular rhythm, S1 normal heart sound present, S2 normal heart sound present and No murmurs present (Cardio) RHYTHM: regular rhythm HEART SOUNDS: S1 normal heart sound present and S2 normal heart sound present GI: COMMON NORMALS: Normal to inspection, nondistended, normoactive bowel sounds present, Soft to palpation and non-tender PALPATION: Yes Soft to palpation Extremity: COMMON NORMALS: no joint enlargement and no pedal edema Neuro: COMMON NORMALS: patient oriented x3 and moves all extremities SENSORIUM/ORIENTATION: Yes alert Skin: RASHES: rashes noted (Thick flaky crusting of BL arms up to shoulders, LE up to thighs) WOUNDS: Yes wounds noted (Dorsal prox R foot scabbed wound at skin fold healing) Data : 06/07/21 05:44 06/07/21 07:30 A&P Assessment and plan (1) Citizen [place] scabies: More permethrin became available today. Switch to 3 times daily dosing will need 7 days. Discussed with pharmacy. Continue ivermectin. Very thick crusts on bilateral arms, with extremities. Continue isolation. -Poor hygiene -Bilateral lower extremities, bilateral upper extremities -Does have eosinophilia -Skin scraping was taken to dermatology for reviewing, with findings of mITE -We will obtain official skin biopsy -Start oral ivermectin 200 mg/kg on day 1, 2, 5, 8, 9, 15, 22 Status: Acute (2) Lower extremity cellulitis: Discussed with him with significant crusting, skin fissuring, is at risk of severe infection, sepsis. Continue Augmentin, doxycycline empirically at this time. 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 Myocardial perfusion imaging revealing patchy areas of persistent decreased tracer uptake in the apical region, most likely are present attrition artifacts. 2. Normal LV ejection fraction of 54%. 3. LV wall motion analysis revealing no gross wall motion normalities. 4. Normal LV volume. -Lasix 40 mg IV once daily as needed PT OT Needs custodial placement Status: Acute Qualifiers: Laterality: right Qualified Code(s): L03.115 - Cellulitis of right lower limb (3) Congestive heart failure due to cardiomyopathy: Status: Acute (4) Venous stasis dermatitis of both lower extremities: Status: Acute (5) Lymphedema: Status: Acute (6) Hypertension: Status: Acute (7) Physical deconditioning: Status: Acute (8) Protein calorie malnutrition: Status: Acute Additional A&P Information Right foot wound: Triple antibiotic daily. Dressing changes once the surrounding skin allows. Attestations Medical Necessity Statement*: Continue admission for assessment management of [place] scabies, with superimposed bacterial skin infection, with risk of sepsis due to extent of crusting and cracking of the skin of BL arms and legs. Inability to care for condition and wounds at home. Coding Level of Care Code Acute Cardiothoracic Icu Rn for [facility] Fwd Diagnoses Citizen [place] scabies B86 Lower extremity cellulitis L03.115 Laterality: right Congestive heart failure due to cardiomyopathy I50.9; I42.9 Venous stasis dermatitis of both lower extremities I87.2 Lymphedema I89.0 Hypertension I10 Physical deconditioning R53.81 Protein calorie malnutrition E46
[2021-06-07 20:00] VITALS: BP 119/70; PULSE 92; RESP 17; TEMP 36.5; O2SAT 93
[2021-06-07] MEDS: enoxaparin 40 mg/0.4 mL Syringe SUBCUT (20:04)
--- NOTE | 2021-06-07 22:43 | PC.NURSE ---
Pt refused to apply premtherin cream to himself. This RN attempted to apply but unable to cover pt entire body. Pt refused to assist this RN with moving his extremities or rolling. When attempted with RN and OCEANOGRAPHER GEOLOGICAL pt continued to refuse to allow staff to move BLE or roll him to access his back.
[2021-06-08] VITALS: BP 141/72; PULSE 100; RESP 19; TEMP 36.8; O2SAT 96
[2021-06-08 03:23] VITALS: BP 147/78; PULSE 98; RESP 19; TEMP 36.6; O2SAT 95
[2021-06-08 07:26] LABS: Basophils % 0.3 %; Eosinophils # 0.2 10^3/uL (0.0-0.8); Hematocrit 40.1 % (42.0-52.0); Hemoglobin 13.3 g/dL (11.7-16.6); Lymphocytes # 1.1 10^3/uL (0.8-4.8); Lymphocytes % 10.3 %; Mean Corpuscular HGB Conc 33.2 g/dL (30.0-36.0); Mean Corpuscular Hemoglobin 31.9 pg (28.0-34.0); Mean Corpuscular Volume 96.2 fl (80-94); Mean Platelet Volume 8.6 fL (7.4-10.4); Monocytes # 0.4 10^3/uL (0.2-0.9); Monocytes % 3.8 %; Neutrophils # 8.46 10^3/uL (1.8-7.7); Nucleated Red Blood Cells % 0 %; Platelet Count 563 10^3/cmm (130-400); Red Blood Count 4.17 10^6/uL (4.1-5.3); Red Cell Distribution Width 13.9 % (12.1-15.1); White Blood Count 10.2 10^3/uL (4.0-10.0)
[2021-06-08 07:34] VITALS: BP 142/81; PULSE 96; RESP 16; TEMP 36.7; O2SAT 96
[2021-06-08 07:45] LABS: Alanine Aminotransferase 11 U/L (0-41); Albumin Level 2.5 g/dL (3.5-5.2); Alkaline Phosphatase 65 IU/L (40-130); Aspartate Amino Transferase 14 U/L (0-40); Blood Urea Nitrogen 16 mg/dL (6-20); Calcium 7.8 mg/dL (8.5-10.5); Carbon Dioxide 25 mmol/L (22-29); Chloride 104 mmol/L (98-107); Globulin 3.8 g/dL (1.3-4.6); Glomerular Filtration Rate 223.3 mL/min (90-130); Glucose 124 mg/dL (65-115); Osmolality Calculated 285 mOsm/kg (285-295); Sodium 136 mmol/L (136-145); Total Bilirubin 0.4 mg/dL (0.15-1.2); Total Protein 6.3 g/dL (6.6-8.7)
[2021-06-08 07:48] LABS: Anion Gap 11.2 (5-19); Potassium 4.2 mmol/L (3.5-5.1)
[2021-06-08] MEDS: aspirin 81 mg EC Tablet PO (10:56)
[2021-06-08] MEDS: doxycycline 100 mg Tablet PO ×2 (10:56→18:11)
[2021-06-08] MEDS: amlodipine 10 mg Tablet PO (10:56)
[2021-06-08] MEDS: famotidine 20 mg Tablet PO ×2 (10:56→18:11)
[2021-06-08] MEDS: amoxicillin-clav 875-125 mg Tablet 1 TAB PO ×2 (10:56→18:11)
[2021-06-08] MEDS: lisinopril 10 mg Tablet PO (10:56)
[2021-06-08 11:02] VITALS: BP 147/83; PULSE 101; RESP 18; TEMP 37.1; O2SAT 98
--- NOTE | 2021-06-08 14:26 | XRR_ITS ---
PROCEDURE INFORMATION: Exam: XR Abdomen Exam date and time: 06/08/2021 2:26 PM Age: 55 years old Clinical indication: Abdominal tenderness and other: Bilat leg pain; Patient HX: Abd tenderness, vomiting; Bilat leg pain; Additional info: Abdominal tenderness, vomiting TECHNIQUE: Imaging protocol: XR of the abdomen. Views: 2 Views. Upright and supine views. COMPARISON: CR XR chest 1V portable [id number] 04/14/2021 4:16 PM FINDINGS: Gastrointestinal tract: Normal. No bowel dilation. Intraperitoneal space: Normal. No free air. Bones/joints: Unremarkable for age. XR/XR acute abdomen series [id number] IMPRESSION: No acute findings. Radiation Dose CTDIVOL = (mGy): DLP = (mGy-cm)
--- NOTE | 2021-06-08 14:28 | PM.PN ---
Subjective Subjective: Interval history: An episode of vomiting today. Reports no appetite. RN states he did not allow to apply permethrin, although he states that he did. Discussed with him, he states he will allow application. Discussed with nursing staff. Vitals/I&O/Wt Last Vital Signs Temp 98.7 F 06/08/21 11:02 Pulse 101 H 06/08/21 11:02 Resp 18 06/08/21 11:02 BP 147/83 06/08/21 11:02 Pulse Ox 98 06/08/21 11:02 06/07/21 06/08/21 06/08/21 22:59 06:59 14:59 Intake Total 460 / 940 150 / 1090 Balance 460 / 940 150 / 1090 Physical Exam Const: COMMON NORMALS: no acute distress, patient oriented x3 and alert GENERAL APPEARANCE: frail appearing ORIENTATION/CONSCIOUSNESS: Yes awake HENMT: COMMON NORMALS: oropharynx normal Neck/C-Spine: COMMON NORMALS: no JVD Resp: COMMON NORMALS: normal respiratory effort and clear to auscultation bilaterally AUSCULTATION: clear to auscultation bilaterally Cardio: COMMON NORMALS: no JVD, regular rhythm, S1 normal heart sound present, S2 normal heart sound present and No murmurs present (Cardio) RHYTHM: regular rhythm HEART SOUNDS: S1 normal heart sound present and S2 normal heart sound present GI: COMMON NORMALS: Soft to palpation INSPECTION: Yes abdominal distension PALPATION: Yes Soft to palpation and Yes Tenderness to palpation present (GI) (mild gen tenderness) Extremity: COMMON NORMALS: no joint enlargement and no pedal edema Neuro: COMMON NORMALS: patient oriented x3 and moves all extremities SENSORIUM/ORIENTATION: Yes alert Skin: RASHES: rashes noted (Thick flaky crusting of BL arms up to shoulders, LE up to thighs) WOUNDS: Yes wounds noted (Dorsal prox R foot scabbed wound at skin fold healing) Data : 06/08/21 07:10 06/08/21 07:10 Micro: Microbiology 06/03/21 18:22 Blood Culture - Final Blood Corynebacterium species A&P Assessment and plan (1) [place] scabies: Permethrin 3 times daily dosing will need 7 days. Discussed with pharmacy. Continue ivermectin. Very thick crusts on bilateral arms, with extremities. Continue isolation. -Poor hygiene -Bilateral lower extremities, bilateral upper extremities -Does have eosinophilia -Skin scraping was taken to dermatology for reviewing, with findings of mITE -We will obtain official skin biopsy -Start oral ivermectin 200 mg/kg on day 1, 2, 5, 8, 9, 15, 22 Status: Acute (2) Nausea and vomiting: Episode of vomiting this morning. No appetite. De-escalate diet to clear liquid. Some generalized abdominal discomfort/tenderness, abdominal distention. Will obtain acute abdominal series. Zofran as needed. Status: Acute Qualifiers: Vomiting type: bilious vomiting Qualified Code(s): R11.14 - Bilious vomiting (3) Lower extremity cellulitis: Discussed with him with significant crusting, skin fissuring, is at risk of severe infection, sepsis. Continue Augmentin, doxycycline empirically at this time. 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 Myocardial perfusion imaging revealing patchy areas of persistent decreased tracer uptake in the apical region, most likely are present attrition artifacts. 2. Normal LV ejection fraction of 54%. 3. LV wall motion analysis revealing no gross wall motion normalities. 4. Normal LV volume. -Lasix 40 mg IV once daily as needed PT OT Needs [facility] placement Status: Acute Qualifiers: Laterality: right Qualified Code(s): L03.115 - Cellulitis of right lower limb (4) Congestive heart failure due to cardiomyopathy: Status: Acute (5) Venous stasis dermatitis of both lower extremities: Status: Acute (6) Lymphedema: Status: Acute (7) Hypertension: Status: Acute (8) Physical deconditioning: Status: Acute (9) Protein calorie malnutrition: Status: Acute Additional A&P Information Right foot wound: Triple antibiotic daily. Dressing changes once the surrounding skin allows. Attestations Medical Necessity Statement*: Continue admission versus management of [place] scabies, additional assessment of abdominal discomfort, nausea and vomiting. Disposition planning and arrangements. Coding Level of Care Code Acute Sandblaster Glass for [facility] Diagnoses [place] scabies B86 Nausea and vomiting R11.14 Vomiting type: bilious vomiting Lower extremity cellulitis L03.115 Laterality: right Congestive heart failure due to cardiomyopathy I50.9; I42.9 Venous stasis dermatitis of both lower extremities I87.2 Lymphedema I89.0 Hypertension I10 Physical deconditioning R53.81 Protein calorie malnutrition E46
[2021-06-08 15:18] VITALS: BP 143/78; PULSE 98; RESP 18; TEMP 36.9; O2SAT 98
--- NOTE | 2021-06-08 15:19 | PC.NURSE ---
patient refused to turn. patient refused to get up and move around or shower for today
[2021-06-08 16:23] LABS: ANA SCREEN, IFA NEGATIVE (NEGATIVE); THYROID PEROXIDASE ANTIBODIES 2 IU/mL (<9)
[2021-06-08 16:35] LABS: CENTROMERE B ANTIBODY <1.0 NEG AI (<1.0 NEG); JO-1 ANTIBODY <1.0 NEG AI (<1.0 NEG); RNP ANTIBODY <1.0 NEG AI (<1.0 NEG); SCL-70 ANTIBODY <1.0 NEG AI (<1.0 NEG); SJOGREN'S ANTIBODY (SS-A) <1.0 NEG AI (<1.0 NEG); SM ANTIBODY <1.0 NEG AI (<1.0 NEG); SS-B <1.0 NEG AI (<1.0 NEG)
[2021-06-08] MEDS: permethrin cream 5% 60 gm 1 APPLIC TOPICAL (18:27)
--- NOTE | 2021-06-08 19:18 | PC.NURSE ---
PT REFUSED TO MOVE TO ALLOW RN TO APPLY PREMETHIN CREAM TO HIS POSTERIOR BODY. PT ALLOWED APPLICATION ON ANTERIOR BODY ONLY.
[2021-06-08 20:00] VITALS: BP 150/81; PULSE 91; RESP 19; TEMP 37.1; O2SAT 96
[2021-06-08] MEDS: enoxaparin 40 mg/0.4 mL Syringe SUBCUT (20:23)
[2021-06-09] VITALS (10 sets, daily range): BP systolic 118–151; BP diastolic 34–98; PULSE 63–106; RESP 12–18; TEMP 36.8–37.1; O2SAT 93–99
[2021-06-09] MEDS: permethrin cream 5% 60 gm 1 APPLIC TOPICAL ×2 (00:59→11:16)
--- NOTE | 2021-06-09 01:09 | PC.NURSE ---
Pt allowed this RN to apply perthermin cream to BLE but would not assist RN in lifting extremities. Pt applied cream to his arms independently. Refused to roll for staff to apply cream to posterior. Education performed on the importance of complete skin coverage. Continued to refuse.
[2021-06-09 06:31] LABS: Basophils # 0.1 10^3/uL (0.0-0.1); Basophils % 0.3 %; Eosinophils % 0.2 %; Hematocrit 43.6 % (42.0-52.0); Hemoglobin 14.4 g/dL (11.7-16.6); Lymphocytes # 1.8 10^3/uL (0.8-4.8); Lymphocytes % 10.2 %; Mean Corpuscular Hemoglobin 31.9 pg (28.0-34.0); Mean Corpuscular Volume 96.5 fl (80-94); Mean Platelet Volume 8.4 fL (7.4-10.4); Monocytes # 1.2 10^3/uL (0.2-0.9); Neutrophils # 14.34 10^3/uL (1.8-7.7); Neutrophils % 81.8 %; Nucleated Red Blood Cells % 0 %; Platelet Count 647 10^3/cmm (130-400); Red Blood Count 4.52 10^6/uL (4.1-5.3); Red Cell Distribution Width 14.1 % (12.1-15.1); White Blood Count 17.6 10^3/uL (4.0-10.0)
--- NOTE | 2021-06-09 06:49 | CT_ITS ---
WS: [id number] CT ABDOMEN AND PELVIS WITH CONTRAST HISTORY: Abd pain and vomiting TECHNIQUE: Imaging performed of the abdomen and pelvis with IV contrast. Single phase imaging of the abdomen. Coronal and sagittal reformats are submitted. All CT scans at [facility] use at [facility] one of these dose optimization techniques: automated exposure control; mA and/or kV adjustment per patient size (includes targeted exams where dose is matched to clinical indication); or iterative re construction. IV CONTRAST: Omnipaque 350; 95 mL IV. Oral contrast: No DLP: 1793.45 mGy.cm COMPARISON: None available. Lower thorax: Small layering RIGHT pleural effusion with associated basilar atelectasis. Normal size heart. No effusion. Moderate-sized hiatal hernia with fluid in the distal esophagus. Liver/biliary system: Normal size with no intrahepatic dilatation. Gallbladder: Very minimal distention of the gallbladder. No bile duct dilatation. Pancreas: Normal size pancreas and pancreatic duct. No adjacent inflammation. Spleen: Normal size spleen. No mass or infarct. Adrenal glands: Normal. Right kidney: Normal. Left kidney: Normal. Aorta: Small caliber aorta and IVC. Lymphadenopathy: None. Free fluid: There is a moderate amount of ascites within the abdomen and pelvis. Ascites adjacent to the liver and spleen and along the RIGHT paracolic gutter. Small amount of fluid LEFT paracolic gutte r with extension into the pelvis. GI tract: Abnormal appearance of the mid to distal small bowel. The small bowel within the RIGHT abdo men and pelvis is normal. The wall is thickened and hyperemic with adjacent fluid. There is submucosa l edema which is circumferential. There is a very mild twisting of the mesentery within the mid RIGHT abdomen with a changing caliber which may represent an internal hernia. Abdominal wall: There are a few small foci of air within the abdominal wall probably from injection s ites. There is mild soft tissue anasarca. Pelvis: Well-distended urinary bladder. Small amount of free fluid in the pelvis. No colonic obstruct ion. There is a moderate amount of fecal material throughout the colon. Bones: Unremarkable. CT/CT abdomen pelvis w con* [id number] IMPRESSION: 1. Abnormal small bowel loops in the RIGHT abdomen. Findings are highly suspic ious for ischemic bowel disease or shock bowel. Twisting of the mesentery withi n the RIGHT abdomen may represent an internal hernia resulting in obstructive a nd ischemic pattern. Patient is at risk for perforation. 2. No free air is identified at this time. 3. Fxcmo-iv-[id number] amount of ascites throughout the abdomen. 4. Small RIGHT pleural effusion. Notified Dr. Francisco 06/09/2021 2:05 PM.
[2021-06-09 06:57] LABS: Alanine Aminotransferase 8 U/L (0-41); Albumin Level 2.6 g/dL (3.5-5.2); Alkaline Phosphatase 64 IU/L (40-130); Anion Gap 11.5 (5-19); Aspartate Amino Transferase 8 U/L (0-40); Blood Urea Nitrogen 18 mg/dL (6-20); Calcium 8.1 mg/dL (8.5-10.5); Carbon Dioxide 25 mmol/L (22-29); Chloride 107 mmol/L (98-107); Globulin 3.5 g/dL (1.3-4.6); Glomerular Filtration Rate 172.6 mL/min (90-130); Glucose 130 mg/dL (65-115); Osmolality Calculated 292 mOsm/kg (285-295); Potassium 4.5 mmol/L (3.5-5.1); Sodium 139 mmol/L (136-145); Total Bilirubin 0.4 mg/dL (0.15-1.2); Total Protein 6.1 g/dL (6.6-8.7)
[2021-06-09] MEDS: lisinopril 10 mg Tablet PO (10:51)
[2021-06-09] MEDS: amlodipine 10 mg Tablet PO (10:51)
[2021-06-09] MEDS: aspirin 81 mg EC Tablet PO (10:51)
[2021-06-09] MEDS: amoxicillin-clav 875-125 mg Tablet 1 TAB PO (10:51)
[2021-06-09] MEDS: famotidine 20 mg Tablet PO (10:51)
[2021-06-09] MEDS: doxycycline 100 mg Tablet PO (10:51)
[2021-06-09] MEDS: iohexol 350 mg/mL 100 mL Btl IV (13:41)
--- NOTE | 2021-06-09 14:17 | P.PN_ITS ---
Subjective Subjective: Interval history: Overnight additional episode of vomiting. Had bowel movement yesterday. Today with persistent abdominal pain, ill-defined, nausea, no appetite. CT abdomen. Vitals/I&O/Wt Last Vital Signs Temp 98.6 F 06/09/21 11:13 Pulse 96 06/09/21 11:13 Resp 18 06/09/21 11:13 BP 137/34 06/09/21 11:13 Pulse Ox 94 06/09/21 11:13 06/08/21 06/09/21 06/09/21 22:59 06:59 14:59 Output Total 550 / 550 Balance -550 / -550 Physical Exam Const: COMMON NORMALS: no acute distress, patient oriented x3 and alert GENERAL APPEARANCE: frail appearing; not comfortable ORIENTATION/CONSCIOUSNESS: Yes awake HENMT: COMMON NORMALS: oropharynx normal Neck/C-Spine: COMMON NORMALS: no JVD Resp: COMMON NORMALS: normal respiratory effort and clear to auscultation bila terally AUSCULTATION: clear to auscultation bilaterally Cardio: COMMON NORMALS: no JVD, regular rhythm, S1 normal heart sound present, S2 normal heart sound present and No murmurs present (Cardio) RHYTHM: regular rhythm HEART SOUNDS: S1 normal heart sound present and S2 normal heart sound present GI: COMMON NORMALS: Soft to palpation INSPECTION: Yes abdominal distension AUSCULTATION: Yes Hypoactive bowel sounds present PALPATION: Yes Soft to palpation and Yes Tenderness to palpation present (GI) (mod gen tenderness) Extremity: COMMON NORMALS: no joint enlargement and no pedal edema Neuro: COMMON NORMALS: patient oriented x3 and moves all extremities SENSORIUM/ORIENTATION: Yes alert Skin: RASHES: rashes noted (Thick flaky crusting of BL arms up to shoulders, LE up to thighs) WOUNDS: Yes wounds noted (Dorsal prox R foot scabbed wound at skin fold healing) Data : 06/09/21 06:20 06/09/21 06:20 Micro: Microbiology 06/03/21 18:21 Blood Culture - Final Blood NO GROWTH AFTER 5 DAYS 06/03/21 18:22 Blood Culture - Final Blood Corynebacterium species A&P Assessment and plan (1) Abnormal CT scan, small bowel: Persistent nausea, additional vomiting overnight. Abdominal x-ray unremarkable from yesterday. Due to persistent symptoms CT scan was ordered and obtained this morning. Concerning findings on CT discussed with radiology, surgery. Concern for possibility of torsion, although finding difficult to delineate. He had denied to me previously any abdominal surgeries in the past. Living conditions pretty poor, receiving treatment for [place] scabies here with permethrin, ivermectin. Cannot exclude possibility of additional intestinal parasites, question of possible contribution to bowel abnormality. Hold further Lovenox. N.p.o. Change antibiotic from Augmentin to Zosyn empiric ally. Status: Acute (2) Nausea and vomiting: As above. Status: Acute Qualifiers: Vomiting type: bilious vomiting Qualified Code(s): R11.14 - Bilious vomiting (3) [place] scabies: Permethrin 3 times daily dosing will need 7 days. Discussed with pharmacy. Continue ivermectin 200 mg/kg on day 1, 2, 5, 8, 9, 15, 22. Very thick crusts on bilateral arms, with extremities. Continue isolation. -Poor hygiene -Bilateral lower extremities, bilateral upper extremities -Does have eosinophilia -Skin scraping was taken to dermatology for reviewing, with findings of mITE -Subsequent punch biopsy with perivascular lymphohistiocytic infiltrate with histiocytes and neutrophils, epidermal spongiosis with excoriation, dermal histiocytic infiltration, consistent with a possible arthropod infection, however, no mites, overall bodies with rudimentary legs, axial skeleton or long hair-like septae where identified. Status: Acute (4) Lower extremity cellulitis: Discussed with him with significant crusting, skin fissuring, is at risk of severe infection, sepsis. Augmentin changed to Zosyn, continue doxycycline empirically at this time. 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 Myocardial perfusion imaging revealing patchy areas of persistent decreased tracer uptake in the apical region, most likely are present attrition artifacts. 2. Normal LV ejection fraction of 54%. 3. LV wall motion analysis revealing no gross wall motion normalities. 4. Normal LV volume. -Lasix 40 mg IV once daily as needed PT OT when able to resume Needs [facility] placement Status: Acute Qualifiers: Laterality: right Qualified Code(s): L03.115 - Cellulitis of right lower limb (5) Congestive heart failure due to cardiomyopathy: Status: Acute (6) Venous stasis dermatitis of both lower extremities: Status: Acute (7) Lymphedema: Weeping improved Status: Acute (8) Hypertension: Status: Acute (9) Physical deconditioning: Status: Acute (10) Protein calorie malnutrition: Status: Acute Additional A&P Information Positive blood culture: 08/03 bottles from 06/03 with corynebacterium species, suspect contamination. Right foot wound: Triple antibiotic daily. Dressing changes once the surrounding skin allows. Attestations Medical Necessity Statement*: Continue admission for additional assessment of concerning findings in the small bowel in the right side of the abdomen with persistent abdominal discomfort, vomiting episodes needing additional surgical assessment, continued treatment of [place] scabies. Coding Level of Care Code Acute Animal Cruelty Investigator for [facility] Fwd Exam Comprehensive Diagnoses Abnormal CT scan, small bowel R93.3 Nausea and vomiting R11.14 Vomiting type: bilious vomiting [place] scabies B86 Lower extremity cellulitis L03.115 Laterality: right Congestive heart failure due to cardiomyopathy I50.9; I42.9 Venous stasis dermatitis of both lower extremities I87.2 Lymphedema I89.0 Hypertension I10 Physical deconditioning R53.81 Protein calorie malnutrition E46
--- NOTE | 2021-06-09 14:59 | ANES.PREANE2 ---
Pre-Anesthetic Assessment Pre-Anesthetic Assessment: Height/Weight: Height 1.78 m Weight 95.254 kg Temp Pulse Resp BP Pulse Ox 98.6 F 96 18 137/34 94 06/09/21 11:13 06/09/21 11:13 06/09/21 11:13 06/09/21 11:13 06/09/21 11:13 Preop Diagnosis: Abdominal pain Proposed Procedure: Operation Date: 06/09/21 16:30 Proposed Procedures p Diagnostic Laparoscopy(Not Applicable) - Jason Rosales MD s Possible Exploratory Laparotomy(Not Applicable) - Jason Rosales MD s Possible Colostomy(Not Applicable) - Jason Rosales MD Familial anesthetic complications: none Last intake: > 8 hrs, but patient having episodes of vomiting Social: Social History: No alcohol and No tobacco Exam: Pre-Anes Outpt Exam: alert, oriented x 3, clear to auscultation bilaterally and regular rate & rhythm Airway: MP: 3 Dentition: Full CV/HEM: CV/HEM: HTN and PVD Comments: 03/20 Perfusion scan IMPRESSIONS 1. Myocardial perfusion imaging revealing patchy areas of persistent decreased tracer uptake in the apical region, most likely are present attrition artifacts. 2. Normal LV ejection fraction of 54%. 3. LV wall motion analysis revealing no gross wall motion normalities. 4. Normal LV volume. No significant coronary ischemia, based on the above findings 03/20 stress test CONCLUSION: Please note due to baseline abnormality of the EKG specificity and sensitivity of the EKG portion of LexiScan MIBI stress test will be low 1. EKG not suggestive of ischemia 2. Lexiscan injection unremarkable. 3. Perfusion scan will be documented separately. ECho 03/20 CONCLUSIONS LV systolic function is midlly reduced with EF of 45-50% Grade 2 diastolic dysfunction No significant valvular heart disease No comparison studies are available GI: Comments: CT abdomen IMPRESSION: 1. Abnormal small bowel loops in the RIGHT abdomen. Findings are highly suspicious for ischemic bowel disease or shock bowel. Twisting of the mesentery within the RIGHT abdomen may represent an internal hernia resulting in obstructive and ischemic pattern. Patient is at risk for perforation. 2. No free air is identified at this time. 3. Dckmi-gb-opumfoei amount of ascites throughout the abdomen. 4. Small RIGHT pleural effusion. Anesthetic Plan: ASA status: 3 Anesthesia: General Risk of > 500 ml blood loss (7ml/kg in children): No Other Pertinent Information: Scabies Meds/Allergies Current Medications: Current Medications Generic Name Dose Route Start Last Admin Trade Name Barney PRN Reason Stop Dose Admin Amlodipine Besylat e 10 mg 06/03/21 20:12 06/09/21 10:51 Amlodipine 10 Mg Tablet PO 10 mg DAILY GENEVA Administration Aspirin 81 mg 06/04/21 09:00 06/09/21 10:51 Aspirin 81 Mg Ec Tablet PO 81 mg DAILY GENEVA Administration Doxycycline Monohy drate 100 mg 06/05/21 09:00 06/09/21 10:51 Doxycycline 100 Mg Tablet PO 100 mg BID GENEVA Administration Protocol Enoxaparin Sodium 40 mg 06/03/21 21:00 06/08/21 20:23 Enoxaparin 40 Mg /0.4 Ml Syringe SUBCUT 40 mg Q24H GENEVA Administration Famotidine 20 mg 06/04/21 09:00 06/09/21 10:51 Famotidine 20 Mg Tablet PO 20 mg BID GENEVA Administration Lisinopril 10 mg 06/04/21 09:00 06/09/21 10:51 Lisinopril 10 Mg Tablet PO 10 mg DAILY GENEVA Administration Permethrin 1 applic 06/04/21 15:00 06/09/21 11:16 Permethrin Cream 5% 60 Gm TOPICAL 1 applic Q8H GENEVA Administration Permethrin 1 applic 06/04/21 16:00 06/06/21 18:02 Permethrin Cream 5% 60 Gm TOPICAL 1 applic Q24H GENEVA Administration PFSH Anesthesia PFSH: Medical History (Updated 06/09/21 @ 14:19 by Elmer Francisco MD) Bilateral knee pain Complicated wound infection Congestive 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 systolic and diastolic Hypertension Lower extremity cellulitis Lymphedema Severe with weeping yellow crusty discharge going bilateral arms above the elbows and bilateral legs about the knees Malnutrition No pertinent family history Obesity Surgical History No pertinent past surgical history Social History Smoking and tobacco status: never smoked Alcohol intake: never Data Anesthesia CBC & Chem 7: 06/09/21 06:20 06/09/21 06:20 Other Labs: Laboratory Results - last 48 hr 06/03/21 06/03/21 06/08/21 10:02 10:02 07:10 WBC 10.2 H RBC 4.17 Hgb 13.3 Hct 40.1 L MCV 96.2 H MCH 31.9 MCHC 33.2 RDW 13.9 Plt Count 563 H D MPV 8.6 Neut % (Auto) 83.0 Lymph % (Auto) 10.3 [place] % (Auto) 3.8 Eos % (Auto) 2.0 Baso % (Auto) 0.3 Neut # (Auto) 8.46 H Lymph # (Auto) 1.1 [place] # (Auto) 0.4 Eos # (Auto) 0.2 Baso # (Auto) 0.0 Nucleated RBC % (auto) 0 Nucleated RBCs # 0.0 ESR 28 H Sodium Potassium Chloride Carbon Dioxide Anion Gap BUN Creatinine GFR Calculation Glucose Calculated Osmolality Calcium Total Bilirubin AST ALT Alkaline Phosphatase Total Protein Albumin Globulin KEVIN IFA Animal Tis Res Negative NAOMI-1 Antibody <1.0 neg SS-A Antibody <1.0 neg SS-B Antibody <1.0 neg Sm (Mc) Antibody <1.0 neg HEALTH EDITOR Antibody <1.0 neg Scl-70 Antibody <1.0 neg Centromere B Antibody <1.0 neg Thyroid Peroxidase Ab 2 06/08/21 06/09/21 06/09/21 07:10 06:20 06:20 WBC 17.6 H RBC 4.52 Hgb 14.4 Hct 43.6 MCV 96.5 H MCH 31.9 MCHC 33.0 RDW 14.1 Plt Count 647 H MPV 8.4 Neut % (Auto) 81.8 Lymph % (Auto) 10.2 [place] % (Auto) 7.0 Eos % (Auto) 0.2 Baso % (Auto) 0.3 Neut # (Auto) 14.34 H Lymph # (Auto) 1.8 [place] # (Auto) 1.2 H Eos # (Auto) 0.0 Baso # (Auto) 0.1 Nucleated RBC % (auto) 0 Nucleated RBCs # 0.0 ESR Sodium 136 139 Potassium 4.2 4.5 Chloride 104 107 Carbon Dioxide 25 25 Anion Gap 11.2 11.5 BUN 16 18 Creatinine 0.4 L 0.5 L GFR Calculation 223.3 H 172.6 H Glucose 124 H 130 H Calculated Osmolality 285 292 Calcium 7.8 L 8.1 L Total Bilirubin 0.4 0.4 AST 14 8 ALT 11 8 Alkaline Phosphatase 65 64 Total Protein 6.3 L 6.1 L Albumin 2.5 L 2.6 L Globulin 3.8 3.5 KEVIN IFA Animal Tis Res NAOMI-1 Antibody SS-A Antibody SS-B Antibody Sm (Mc) Antibody HEALTH EDITOR Antibody Scl-70 Antibody Centromere B Antibody Thyroid Peroxidase Ab Micro: Microbiology 06/03/21 18:21 Blood Culture - Final Blood NO GROWTH AFTER 5 DAYS Cardiac Studies: Echocardiogram 03/22/21
--- NOTE | 2021-06-09 15:23 | PC.NURSE ---
AT APPROX. 1515 PT OFF UNIT TO OR FOR SURGERY
[2021-06-09 15:41] LABS: Lactate (Lactic Acid level) 0.8 mmol/L (0.5-2.2)
[2021-06-09] MEDS: sodium chloride 0.9% 1,000 ML 30 ML IV (15:45)
--- NOTE | 2021-06-09 15:52 | P.CONIM_ITS ---
Providers/Reason For Consult Consulting Physician/Specialty*: Jason Rosales MD Reason for Consult*: Acute abdomen Requesting Physician: Dr. Francisco Attending Physician: Elmer Francisco Primary Care Provider: Chaparro Marvin MD History of Present Illness History of Present Illness Bg Mccauley is a 55 year old male admitted to the hospitalist service. With multiple medical comorbidities. chronic venous stasis dermatitis bilateral lower extremities, bilateral extremity cellulitis, mixed congestive heart failure systolic and diastolic, who presents to [facility] due to complaints of bilateral extremity pain, swelling, edema, drainage. Patient undergone a skin biopsy that showed scabies. Over the course of stay in the hospital patient was found to have worsening abdominal pain and undergone a CT scan of th e abdomen and pelvis today; 1. Abnormal small bowel loops in the RIGHT abdomen. Findings are highly suspicious for ischemic bowel disease or shock bowel. Twisting of the mesentery within the RIGHT abdomen may represent an internal hernia resulting in obstructive and ischemic pattern. Patient is at risk for perforation. 2. No free air is identified at this time. 3. [id number] amount of ascites throughout the abdomen. 4. Small RIGHT pleural effusion. General surgery was consulted for further evaluation. Patient reports that he had repeated vomiting, he did have bowel movement yesterday but the pain has been persistent. Review of Systems General: Reports: 10 or more systems reviewed and unremarkable except in HPI and below Meds/Allergies Home Medications and Allergies Home Medications Medication Instructions Recorded Confirmed Last Taken Type aspirin 81 mg tablet,delayed 81 mg PO DAILY 05/14/21 06/05/21 Unknown History release furosemide 40 mg tablet 40 mg PO DAILY #30 tab 05/14/21 06/05/21 Unknown Rx lisinopril 5 mg tablet 5 mg PO DAILY #30 tab 05/14/21 06/05/21 Unknown Rx ivermectin 18,000 mcg PO ONCE 7 Days #42 tab 06/04/21 Unknown Rx Allergies Allergy/AdvReac Type Severity Reaction Status Date / Time No Known Allergies Allergy Verified 06/09/21 16:03 Current Medications Current Medications Generic Name Dose Route Start Last Admin Trade Name Freq PRN Reason Stop Dose Admin Amlodipine Besylate 10 mg 06/03/21 20:12 06/09/21 10:51 Amlodipine 10 Mg Tablet PO 10 mg DAILY GENEVA Administration Aspirin 81 mg 06/04/21 09:00 06/09/21 10:51 Aspirin 81 Mg Ec Tablet PO 81 mg DAILY GENEVA Administration Doxycycline Monohydrate 100 mg 06/05/21 09:00 06/09/21 10:51 Doxycycline 100 Mg Tablet PO 100 mg BID GENEVA Administration Protocol Enoxaparin Sodium 40 mg 06/03/21 21:00 06/08/21 20:23 Enoxaparin 40 Mg/0.4 Ml Syringe SUBCUT 40 mg Q24H GENEVA Administration Famotidine 20 mg 06/04/21 09:00 06/09/21 10:51 Famotidine 20 Mg Tablet PO 20 mg BID GENEVA Administration Lisinopril 10 mg 06/04/21 09:00 06/09/21 10:51 Lisinopril 10 Mg Tablet PO 10 mg DAILY GENEVA Administration Permethrin 1 applic 06/04/21 15:00 06/09/21 11:16 Permethrin Cream 5% 60 Gm TOPICAL 1 applic Q8H GENEVA Administration Permethrin 1 applic 06/04/21 16:00 06/06/21 18:02 Permethrin Cream 5% 60 Gm TOPICAL 1 applic Q24H GENEVA Administration PFSH Acute PFSH: Medical History Bilateral knee pain Complicated wound infection Congestive 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 systolic and diastolic Hypertension Lower extremity cellulitis Lymphedema Severe with weeping yellow crusty discharge going bilateral arms above the elbows and bilateral legs about the knees Malnutrition No pertinent family history Obesity Surgical History No pertinent past surgical history Social History Smoking and tobacco status: never smoked Alcohol intake: never Vitals/I&O/Wt Last Vital Signs Temp 98.6 F 06/09/21 11:13 Pulse 102 H 06/09/21 15:16 Resp 17 06/09/21 15:16 BP 151/98 06/09/21 15:16 Pulse Ox 99 06/09/21 15:16 06/09/21 06/09/21 06/09/21 06:59 14:59 22:59 Output Total 550 / 550 Balance -550 / -550 Physical Exam Narrative: EXAM NARRATIVE: Patient is conscious alert oriented X3 BMI 30.1 Head and neck examination PERRLA no masses no cervical lymphadenopathy no jaundice Cardiac examination audible S1-S2 no murmurs no gallops no arrhythmias Chest is clear bilateral,abscence of Rhonchi or wheezes,no surgical emphysema Abdomen acute abdomen with generalized tenderness and rigidity Chronic swelling of bilateral lower extremities with scaly appearance Data Micro: Micro: Microbiology 06/03/21 18:21 Blood Culture - Fi nal Blood NO GROWTH AFTER 5 DAYS A&P Assessment and plan (1) Acute abdomen: After history taking physical examination and reviewing the chart and images with my personal interpretation and discussing the imaging with Dr. Mckoy. Likely the patient has internal herniation with component of bowel ischemia. Based on that I did litigation counsel the patient for diagnostic laparoscopy possible laparotomy possible bowel resection possible colostomy. Indications, risks, benefits alternatives all discussed with the patient did agree to proceed accordingly. Informed consent per chart Assurance and education All questions have been answered and all concerns have been addressed to patient's satisfaction. Status: Acute Consult Attestations Medical Necessity Statement: Per admitting service Time Spent in Patient Care: (>than 50% of time spent in counselling and/or direct pt care on unit) . Coding Level of Care Code Acute Pipe Setter for Chg Fwd Diagnoses Acute abdomen R10.0
[2021-06-09] MEDS: piperacillin-tazobactam 3.375 GM in sodium chloride 0.9% (plus) 50 ML IV ×2 (16:11→23:55)
[2021-06-09] MEDS: acetaminophen 1,000 MG/100 ML PIGGYBACK 400 MG IV (17:06)
--- NOTE | 2021-06-09 17:41 | PM.OP ---
Operative Report Date of procedure: June 09, 2021 Pre-op Diagnosis: Acute abdomen Post-op Diagnosis: Congested edematous segment of the terminal ileum about a foot length without evidence of ischemia or perforation, no signs of adhesions or lymphadenopathy of the mesentery. Procedure Done: Diagnostic laparoscopy Specimens removed/disposition: None Surgeon: Jason Rosales Pharmacognosist: surgical Nicole Roy and Sammi DIANE Circulating nurses Mary and Gabriella Anesthesia: General (business process architect Luiz) Estimated blood loss (mL): 5 IV fluids (mL): 500 Urine output (mL): 500 Condition: stable Disposition: floor Brief History: Acute abdomen Procedure: After identifying the patient in the holding area, was taken to the operating room, placed in supine position, intubated by anesthesia, prophylactic IV antibiotics were given per protocol. Wright catheter was inserted by the circulating nurse revealing clear urine,time-out was done verifying the patient's name/date of /planned procedure and destination after the procedure, all were in agreement. Patient was appropriately secured to the table, all pressure points were padded Prep and drape of the abdomen was done under the usual sterile technique, a Vizcarra trocar technique was used through an supra umbilical skin incision, to stay sutures were applied to the fascia, and safe entrance to the abdominal cavity was achieved, low flow followed by high flow of CO2 gas, started by 0 scope 10 mm, no injuries were detected, followed by that a 30? millimeter scope was inserted a. There was no odor of succus. A 5 mm trocar was inserted under direct vision in the right upper quadrant, followed by a right lower quadrant, and another two 5 mm trocars were inserted as a mirror image from the first 2 but on the left side, to enable running the small bowel, from each side of the operating table. Position of the patient was done in T Guevara and reversed T Guevara so I was able to inspect the whole abdominal cavity safely First the patient was placed in T Guevara, the omentum was lifted up, ligament of Treitz was identified, I was standing at the right side table, the bowel was then all the way to the proximal ileum, then I switched it and went to the other side of the table, the remaining of the bowel were again to the ileocecal junction. Noticed to have about a foot length of PROXIMAL ileum dilated, congested, beefy and edematous without signs of ischemia, continues to be viable, about 30 cm from the ileocecal junction. And no evidence of congenital bands and rest of the bowel looked normal including the entire colon and appendix looked normal. There was some ascitic fluid serosanguineous in the pelvis that was irrigated. And suction was applied. Continued to have viable bowel,Vizcarra trocar entrance site was closed by [id number] #1 PDS using fascial closure device under direct visualization, gas was allowed to escape all trocars were taken out, skin was then closed by skin mack followed by Band-Aids. Wright catheter was kept in place Patient tolerated the procedure well and got extubated, was taken to the recovery area in stable condition Count of instruments and sponges were completed at the end of the procedure I was present for the whole entire procedure
[2021-06-09] MEDS: enoxaparin 40 mg/0.4 mL Syringe SUBCUT (20:57)
[2021-06-09] MEDS: metroNIDAZOLE IV 500 MG/100 ML PREMIX 100 MG IV (22:57)
[2021-06-10] VITALS (7 sets, daily range): BP systolic 110–144; BP diastolic 67–78; PULSE 77–88; RESP 16–17; TEMP 36.5–37.1; O2SAT 91–98
[2021-06-10] MEDS: metroNIDAZOLE IV 500 MG/100 ML PREMIX 100 MG IV ×3 (05:30→20:44)
[2021-06-10 06:01] LABS: Basophils % 0.2 %; Hematocrit 40.3 % (42.0-52.0); Hemoglobin 13.1 g/dL (11.7-16.6); Lymphocytes # 1.5 10^3/uL (0.8-4.8); Lymphocytes % 9.9 %; Mean Corpuscular HGB Conc 32.5 g/dL (30.0-36.0); Mean Corpuscular Volume 98.3 fl (80-94); Monocytes # 1.1 10^3/uL (0.2-0.9); Monocytes % 7.8 %; Neutrophils # 11.95 10^3/uL (1.8-7.7); Neutrophils % 81.3 %; Nucleated Red Blood Cells % 0 %; Platelet Count 256 10^3/cmm (130-400); Red Cell Distribution Width 14.4 % (12.1-15.1); White Blood Count 14.7 10^3/uL (4.0-10.0)
[2021-06-10 06:30] LABS: Slide Review Slide Review Perform
[2021-06-10] MEDS: piperacillin-tazobactam 3.375 GM in sodium chloride 0.9% (plus) 50 ML IV ×2 (06:40→14:32)
[2021-06-10 06:53] LABS: Alanine Aminotransferase 6 U/L (0-41); Albumin Level 2.5 g/dL (3.5-5.2); Alkaline Phosphatase 48 IU/L (40-130); Anion Gap 11.6 (5-19); Aspartate Amino Transferase 8 U/L (0-40); Blood Urea Nitrogen 24 mg/dL (6-20); Calcium 8.1 mg/dL (8.5-10.5); Carbon Dioxide 26 mmol/L (22-29); Chloride 105 mmol/L (98-107); Glomerular Filtration Rate 117.1 mL/min (90-130); Glucose 109 mg/dL (65-115); Osmolality Calculated 291 mOsm/kg (285-295); Potassium 4.6 mmol/L (3.5-5.1); Sodium 138 mmol/L (136-145); Total Bilirubin 0.4 mg/dL (0.15-1.2); Total Protein 5.5 g/dL (6.6-8.7)
[2021-06-10] MEDS: aspirin 81 mg EC Tablet PO (10:32)
[2021-06-10] MEDS: doxycycline 100 mg Tablet PO ×2 (10:32→17:51)
[2021-06-10] MEDS: famotidine 20 mg Tablet PO ×2 (10:33→17:53)
[2021-06-10] MEDS: amlodipine 10 mg Tablet PO (10:34)
[2021-06-10] MEDS: lisinopril 10 mg Tablet PO (10:34)
[2021-06-10] MEDS: permethrin cream 5% 60 gm 1 APPLIC TOPICAL ×2 (12:12→17:51)
--- NOTE | 2021-06-10 15:26 | P.PN_ITS ---
Subjective Subjective: Interval history: Patient seems to be overall feeling better. Adequate urine output. Trending down leukocytosis Medications: Reviewed: Yes Vitals/I&O/Wt Last Vital Signs Temp 97.8 F 06/10/21 12:00 Pulse 80 06/10/21 12:00 Resp 17 06/10/21 12:00 BP 126/76 06/10/21 12:00 Pulse Ox 96 06/10/21 12:00 06/10/21 06/10/21 06/10/21 06:59 14:59 22:59 Intake Total 370 / 1640 150 / 150 Output Total 860 / 1360 Balance -490 / 280 150 / 150 Physical Exam Narrative: EXAM NARRATIVE: Patient is conscious alert oriented X3 BMI 30 Head and neck examination PERRLA no masses no cervical lymphadenopathy no jaundice Abdomen less tender nondistended soft no organomegaly guarding or rigidity/no signs of peritonitis. Band-Aids in place. Cath in place with clear urine Urinary Catheter Management^: Wright: Cath Placed During This Visit: yes Reason for Continuing Indwelling Catheter: Acute Urinary Retention or Obstruction Urinary Catheter Date of Insertion: 06/09/21 Urinary Catheter Time of Insertion: 14:30 Data : 06/10/21 05:29 06/10/21 06:20 Micro: Microbiology 06/09/21 20:30 Blood Culture - Preliminary Blood SPECIMEN COLLECTED 06/09/21 20:25 Blood Culture - Preliminary Blood SPECIMEN COLLECTED A&P Assessment and plan (1) Acute abdomen: Assessment 55 years old gentleman status post diagnostic laparoscopy for concern of int ernal herniation and ischemic bowel. 06/09/2021 Plan From surgical standpoint of view gentle hydration including small amount of crystalloids and certainly albumin to minimize third spacing. Broad-spectrum antibiotics. We will DC Wright catheter Patient would benefit from peripheral parenteral nutrition I would like to continue n.p.o. status for now and complete bowel rest We will continue coordinating care with Dr. Francisco Thank you for consulting general surgery to participate taking care Mr. Mccauley Status: Suspected Attestations Medical Necessity Statement*: Per admitting service Time Spent in Patient Care: (>than 50% of time spent in counselling and/or direct pt care on unit) . 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
[2021-06-10] MEDS: albumin 12.5 GM/250 ML VIAL IV (17:52)
--- NOTE | 2021-06-10 20:13 | P.PN_ITS ---
Subjective Subjective: Interval history: He reports he is doing a bit better today. Denies eructation currently. So far no flatus or bowel movement. Less pain in the abdomen. Vitals/I&O/Wt Last Vital Signs Temp 98.7 F 06/10/21 16:00 Pulse 77 06/10/21 16:00 Resp 17 06/10/21 16:00 BP 124/78 06/10/21 16:00 Pulse Ox 91 06/10/21 16:00 06/10/21 06/10/21 06/10/21 06:59 14:59 22:59 Intake Total 370 / 1640 150 / 150 300 / 450 Output Total 860 / 1360 Balance -490 / 280 150 / 150 300 / 450 Physical Exam Const: COMMON NORMALS: no acute distress, patient oriented x3 and alert GENERAL APPEARANCE: cooperative and frail appearing ORIENTATION/CONSCIOUSNESS: Yes awake HENMT: COMMON NORMALS: oropharynx normal Neck/C-Spine: COMMON NORMALS: no JVD Resp: COMMON NORMALS: normal respiratory effort and clear to auscultation bilaterally AUSCULTATION: clear to auscultation bilaterally Cardio: COMMON NORMALS: no JVD, regular rhythm, S1 normal heart sound present, S2 normal heart sound present and No murmurs present (Cardio) RHYTHM: regular rhythm HEART SOUNDS: S1 normal heart sound present and S2 normal heart sound present GI: COMMON NORMALS: Soft to palpation INSPECTION: Yes abdominal distension AUSCULTATION: Yes Hypoactive bowel sounds present PALPATION: Yes Soft to palpation and Yes Tenderness to palpation present (GI) (gen tenderness) Extremity: COMMON NORMALS: no joint enlargement and no pedal edema Neuro: COMMON NORMALS: patient oriented x3 and moves all extremities SENSORIUM/ORIENTATION: Yes alert Skin: RASHES: rashes noted (Thick flaky crusting of BL arms up to shoulders, LE up to thighs) WOUNDS: Yes wounds noted (Dorsal prox R foot scabbed wound at skin fold healing) Urinary Catheter Management^: Wright: Cath Placed During This Visit: yes Reason for Continuing Indwelling Catheter: Acute Urinary Retention or Obstruction Urinary Catheter Date of Insertion: 06/09/21 Urinary Catheter Time of Insertion: 14:30 Data : 06/10/21 05:29 06/10/21 06:20 Micro: Microbiology 06/09/21 20:30 Blood Culture - Preliminary Blood SPECIMEN COLLECTED 06/09/21 20:25 Blood Culture - Preliminary Blood SPECIMEN COLLECTED A&P Assessment and plan (1) Abnormal CT scan, small bowel: Status post diagnostic laparoscopy without finding of herniation, bowel necrosis, with finding of hyperemia of a segment of distal ileum, without signs of perforation, appendix looks normal. Some serosanguineous ascitic fluid. Continue bowel rest. Additional hydration, albumin today. Additional crystalloid, possibly parenteral nutrition tomorrow. Stool studies ordered. Empirically on Zosyn, Flagyl currently. Follow-up repeat blood cultures. Status: Acute (2) Nausea and vomiting: So far resolved. Status: Acute Qualifiers: Vomiting type: bilious vomiting Qualified Code(s): R11.14 - Bilious vomiting (3) Panamanian scabies: Permethrin 3 times daily dosing will need 7 days. Discussed with pharmacy. Continue ivermectin 200 mg/kg on day 1, 2, 5, 8, 9, 15, 22. Very thick crusts on bilateral arms, with extremities. Continue isolation. -Poor hygiene -Bilateral lower extremities, bilateral upper extremities -Does have eosinophilia -Skin scraping was taken to dermatology for reviewing, with findings of mITE -Subsequent punch biopsy with perivascular lymphohistiocytic infiltrate with histiocytes and neutrophils, epidermal spongiosis with excoriation, dermal histiocytic infiltration, consistent with a possible arthropod infection, however, no mites, overall bodies with rudimentary legs, axial skeleton or long hair-like septae where identified. Status: Acute (4) Lower extremity cellulitis: Discussed with him with significant crusting, skin fissuring, is at risk of severe infection, sepsis. Augmentin changed to Zosyn, continue doxycycline empirically at this time. 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 Myocardial perfusion imaging revealing patchy areas of persistent decreased tracer uptake in the apical region, most likely are present attrition artifacts. 2. Normal LV ejection fraction of 54%. 3. LV wall motion analysis revealing no gross wall motion normalities. 4. Normal LV volume. -Lasix 40 mg IV once daily as needed PT OT when able to resume Needs correction placement Status: Acute Qualifiers: Laterality: right Qualified Code(s): L03.115 - Cellulitis of right lower limb (5) Congestive heart failure due to cardiomyopathy: Status: Acute (6) Venous stasis dermatitis of both lower extremities: Status: Acute (7) Lymphedema: Weeping resolved Status: Acute (8) Hypertension: Status: Acute (9) Physical deconditioning: Status: Acute (10) Protein calorie malnutrition: Status: Acute Additional A&P Information Positive blood culture: 08/03 bottles from 06/03 with corynebacterium species, suspect contamination. Right foot wound: Triple antibiotic daily. Dressing changes once the surrounding skin allows. Attestations Medical Necessity Statement*: Continue admission for supportive care, bowel rest, additional investigation of noted hyperemic segment of distal small bowel, continue treatment of Panamanian scabies, disposition planning and arrangements. Coding Level of Care Code Acute Bike Shop Manager for [facility] Fwd Exam Comprehensive Diagnoses Abnormal CT scan, small bowel R93.3 Nausea and vomiting R11.14 Vomiting type: bilious vomiting Panamanian scabies B86 Lower extremity cellulitis L03.115 Laterality: right Congestive heart failure due to cardiomyopathy I50.9; I42.9 Venous stasis dermatitis of both lower extremities I87.2 Lymphedema I89.0 Hypertension I10 Physical deconditioning R53.81 Protein calorie malnutrition E46
[2021-06-10] MEDS: enoxaparin 40 mg/0.4 mL Syringe SUBCUT (20:44)
[2021-06-11] VITALS: BP 124/77; PULSE 77; RESP 12; TEMP 36.5; O2SAT 94
[2021-06-11] MEDS: piperacillin-tazobactam 3.375 GM in sodium chloride 0.9% (plus) 50 ML IV ×3 (01:16→17:30)
--- NOTE | 2021-06-11 03:45 | PC.NURSE ---
Patient refused to let this nurse apply topical cream and/or to help apply topical himself. This nurse educated patient on importance of using topical as well as to adhere to doctors orders. Patient still refused topical cream.
[2021-06-11 04:00] VITALS: BP 133/58; PULSE 76; RESP 14; TEMP 37.1; O2SAT 95
[2021-06-11 06:41] LABS: Basophils # 0.1 10^3/uL (0.0-0.1); Basophils % 0.7 %; Eosinophils # 0.8 10^3/uL (0.0-0.8); Eosinophils % 7.5 %; Hemoglobin 11.9 g/dL (11.7-16.6); Lymphocytes % 19.5 %; Mean Corpuscular HGB Conc 32.2 g/dL (30.0-36.0); Mean Corpuscular Volume 99.5 fl (80-94); Mean Platelet Volume 8.7 fL (7.4-10.4); Monocytes # 0.9 10^3/uL (0.2-0.9); Monocytes % 9.3 %; Neutrophils # 6.35 10^3/uL (1.8-7.7); Neutrophils % 62.4 %; Nucleated Red Blood Cells % 0 %; Platelet Count 464 10^3/cmm (130-400); Red Blood Count 3.72 10^6/uL (4.1-5.3); Red Cell Distribution Width 14.3 % (12.1-15.1); White Blood Count 10.2 10^3/uL (4.0-10.0)
[2021-06-11] MEDS: metroNIDAZOLE IV 500 MG/100 ML PREMIX 100 MG IV ×3 (06:45→21:37)
[2021-06-11 06:52] LABS: Alanine Aminotransferase < 5 U/L (0-41); Albumin Level 2.6 g/dL (3.5-5.2); Alkaline Phosphatase 44 IU/L (40-130); Anion Gap 11.5 (5-19); Aspartate Amino Transferase 7 U/L (0-40); Blood Urea Nitrogen 23 mg/dL (6-20); Calcium 7.8 mg/dL (8.5-10.5); Carbon Dioxide 25 mmol/L (22-29); Chloride 105 mmol/L (98-107); Globulin 3.1 g/dL (1.3-4.6); Glomerular Filtration Rate 172.6 mL/min (90-130); Glucose 76 mg/dL (65-115); Osmolality Calculated 288 mOsm/kg (285-295); Potassium 3.5 mmol/L (3.5-5.1); Sodium 138 mmol/L (136-145); Total Bilirubin 0.4 mg/dL (0.15-1.2); Total Protein 5.7 g/dL (6.6-8.7)
[2021-06-11 08:00] VITALS: BP 125/67; PULSE 88; RESP 18; TEMP 36.6; O2SAT 94
[2021-06-11] MEDS: famotidine 20 mg Tablet PO ×2 (10:19→17:31)
[2021-06-11] MEDS: amlodipine 10 mg Tablet PO (10:19)
[2021-06-11] MEDS: aspirin 81 mg EC Tablet PO (10:19)
[2021-06-11] MEDS: doxycycline 100 mg Tablet PO ×2 (10:19→17:30)
[2021-06-11] MEDS: permethrin cream 5% 60 gm 1 APPLIC TOPICAL (10:20)
[2021-06-11] MEDS: lisinopril 10 mg Tablet PO (10:21)
[2021-06-11 11:19] VITALS: BP 130/72; PULSE 82; RESP 16; TEMP 36.6; O2SAT 94
--- NOTE | 2021-06-11 13:55 | PC.CHAP ---
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 visit [] Patient/Family/Request visit [] Outpatient visit [xx] Follow-up visit [] Physician referral [] Code/Alert [] Routine visit [] Staff referral [] Actively dying [] Patient sleeping [] Family support [] [] Out of room [] Palliative care [] [] Receiving care in room [] Pre-surgical visit [] Trauma [xx] Long length of stay [] ICU visit [xx] Other: ISOLATION Relational/Emotional Strength [] Patient feels connected with others/family/visitors/staff [] Distress [] Loneliness/isolation [] Abandonment Spirituality of Patient [] Person of Karon [] Attends Yarsanism of their Karon [] Believes in Prayer [] Reads Bible or Confucianism materials [] There are Spiritual issues to be addressed [place]cis Interventions [] Prayer [] Active listening [] Non-anxious presence [] Spiritual/emotional support [] Crisis/trauma care [] Spiritual counseling [] Bereavement support [] Provided bereavement packet [] Provided Bible/devotional materials [] Provided toy/stuffed animal, coloring book to patient or family member [] Provided Communion [] Anointing/[place] [] Salvation [] Completed spiritual assessment [] Other: Impact on Illness or Injury [] Angry [] Fearful [] Anxious [] Often cries [] Exhaustion [] Unable to work [] Unable to attend baptist [] Unable to walk/stand [] Unable to read [] Unable to drive [] Unable to eat/drink [] Unable to sleep [] Unable to be with family [] Patient intubated [] Other: Summary Time spent with patient
[2021-06-11 15:14] VITALS: BP 127/68; PULSE 88; RESP 14; TEMP 36.5; O2SAT 92
--- NOTE | 2021-06-11 15:54 | PC.NURSE ---
student nurse all the student nurse's documentation verified by this instructor from 06/11/21
[2021-06-11] MEDS: lactated ringers 1,000 ML 50 ML IV (16:18)
--- NOTE | 2021-06-11 17:09 | P.PN_ITS ---
Subjective Subjective: Interval history: Reports overall he is doing slightly better. No further nausea or vomiting. Abdominal pain gradually subsiding. Vitals/I&O/Wt Last Vital Signs Temp 97.7 F 06/11/21 15:14 Pulse 88 06/11/21 15:14 Resp 14 06/11/21 15:14 BP 127/68 06/11/21 15:14 Pulse Ox 92 06/11/21 15:14 06/11/21 06/11/21 06/11/21 06:59 14:59 22:59 Intake Total 50 / 600 100 / 100 Balance 50 / 600 100 / 100 Physical Exam Const: COMMON NORMALS: no acute distress, patient oriented x3 and alert GENERAL APPEARANCE: cooperative and frail appearing ORIENTATION/CONSCIOUSNESS: Yes awake HENMT: COMMON NORMALS: oropharynx normal Neck/C-Spine: COMMON NORMALS: no JVD Resp: COMMON NORMALS: normal respiratory effort and clear to auscultation bilaterally AUSCULTATION: clear to auscultation bilaterally Cardio: COMMON NORMALS: no JVD, regular rhythm, S1 normal heart sound present, S2 normal heart sound present and No murmurs present (Cardio) RHYTHM: regular rhythm HEART SOUNDS: S1 normal heart sound present and S2 normal heart sound present GI: COMMON NORMALS: Soft to palpation INSPECTION: Yes abdominal distension AUSCULTATION: Yes Hypoactive bowel sounds present PALPATION: Yes Soft to palpation and Yes Tenderness to palpation present (GI) (gen tenderness) Extremity: COMMON NORMALS: no joint enlargement and no pedal edema Neuro: COMMON NORMALS: patient oriented x3 and moves all extremities SENSORIUM/ORIENTATION: Yes alert Skin: RASHES: rashes noted (Thick flaky crusting of BL arms up to shoulders, LE up to thighs) WOUNDS: Yes wounds noted (Dorsal prox R foot scabbed wound at skin fold healing) Urinary Catheter Management^: Wright: Cath Placed During This Visit: yes, but has since been removed by the nurse Reason for Continuing Indwelling Catheter: Decision to DC Catheter Urinary Catheter Date of Insertion: 06/09/21 Urinary Catheter Time of Insertion: 14:30 Date Urinary Catheter Removed: 06/10/21 Time Urinary Catheter Discontinued: 17:55 Data : 06/11/21 06:13 06/11/21 06:13 Micro: Microbiology 06/09/21 20:30 Blood Culture - Preliminary Blood NEGATIVE TO DATE 06/09/21 20:25 Blood Culture - Preliminary Blood NEGATIVE TO DATE A&P Assessment and plan (1) Abnormal CT scan, small bowel: Continues n.p.o. for now. Received albumin yesterday. We will add gentle IV hydration with LR. We discussed with him possibly starting on some PPN tomorrow. Continue Jasmine antibiotic for now with Zosyn. No growth on repeat blood culture. Status post diagnostic laparoscopy without finding of herniation, bowel necrosis, with finding of hyperemia of a segment of distal ileum, without signs of perforation, appendix looks normal. Some serosanguineous ascitic fluid. Continue bowel rest. Stool studies ordered. Empirically on Zosyn, Flagyl currently. Follow-up repeat blood cultures. Status: Acute (2) Nausea and vomiting: So far resolved. Status: Acute Qualifiers: Vomiting type: bilious vomiting Qualified Code(s): R11.14 - Bilious vomiting (3) Filipino scabies: Crusting is gradually decreasing. Some confluent erythematous patches on underlying exposed skin. Continue Zosyn, doxycycline. Continue permethrin 3 times daily dosing will need 7 days then twice weekly until cured. Continue ivermectin 200 mg/kg on day 1, 2, 5, 8, 9, 15, 22. Very thick crusts on bilateral arms, with extremities. Continue isolation. -Poor hygiene -Bilateral lower extremities, bilateral upper extremities -Did have eosinophilia which so far has resolved -Skin scraping was taken to dermatology for reviewing, with findings of mITE -Subsequent punch biopsy with perivascular lymphohistiocytic infiltrate with histiocytes and neutrophils, epidermal spongiosis with excoriation, dermal histiocytic infiltration, consistent with a possible arthropod infection, however, no mites, overall bodies with rudimentary legs, axial skeleton or long hair-like septae where identified. Status: Acute (4) Lower extremity cellulitis: Crusting overall decreasing, with noted smooth denuded skin, but with noted erythematous patches on upper and lower extremities at the areas of decreased crusting. 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 Myocardial perfusion imaging revealing patchy areas of persistent decreased tracer uptake in the apical region, most likely are present attrition artifacts. 2. Normal LV ejection fraction of 54%. 3. LV wall motion analysis revealing no gross wall motion normalities. 4. Normal LV volume. -Lasix 40 mg IV once daily as needed PT OT when able to resume [facility]eds [facility] placement Status: Acute Qualifiers: Laterality: right Qualified Code(s): L03.115 - Cellulitis of right lower limb (5) Congestive heart failure due to cardiomyopathy: Status: Acute (6) Venous stasis dermatitis of both lower extremities: Status: Acute (7) Lymphedema: Weeping resolved Status: Acute (8) Hypertension: Status: Acute (9) Physical deconditioning: Status: Acute (10) Protein calorie malnutrition: Status: Acute Additional A&P Information Positive blood culture: 08/03 bottles from 06/03 with corynebacterium species, suspect contamination. Negative preliminary repeat blood cultures 06/09. Right foot wound: Healing Attestations Medical Necessity Statement*: Continue hospitalization for additional IV hydration, additional supportive care with bowel rest following acute abdomen with noted hyperemic bowel, awaiting return of bowel function, empiric antibiotic therapy, possible history of nutritional support, continue treatment of urgent scabies, cellulitis, disposition planning and arrangements. Coding Level of Care Code Acute Seed Service Advisor for g Fwd Diagnoses Abnormal CT scan, small bowel R93.3 Nausea and vomiting R11.14 Vomiting type: bilious vomiting Filipino scabies B86 Lower extremity cellulitis L03.115 Laterality: right Congestive heart failure due to cardiomyopathy I50.9; I42.9 Venous stasis dermatitis of both lower extremities I87.2 Lymphedema I89.0 Hypertension I10 Physical deconditioning R53.81 Protein calorie malnutrition E46
--- NOTE | 2021-06-11 17:22 | P.PN_ITS ---
Subjective Subjective: Interval history: Patient overall feels slightly better but did not pass gas yet. Adequate urine output Medications: Reviewed: Yes Vitals/I&O/Wt Last Vital Signs Temp 97.7 F 06/11/21 15:14 Pulse 88 06/11/21 15:14 Resp 14 06/11/21 15:14 BP 127/68 06/11/21 15:14 Pulse Ox 92 06/11/21 15:14 06/11/21 06/11/21 06/11/21 06:59 14:59 22:59 Intake Total 50 / 600 100 / 100 Balance 50 / 600 100 / 100 Physical Exam Narrative: EXAM NARRATIVE: Patient is conscious alert oriented X3 BMI 30 Head and neck examination PERRLA no masses no cervical lymphadenopathy no jaundice Abdomen less tender nondistended soft no organomegaly guarding or rigidity/no signs of peritonitis. Urinary Catheter Management^: Wright: Cath Placed During This Visit: yes, but has since been removed by the nurse Reason for Continuing Indwelling Catheter: Decision to DC Catheter Urinary Catheter Date of Insertion: 06/09/21 Urinary Catheter Time of Insertion: 14:30 Date Urinary Catheter Removed: 06/10/21 Time Urinary Catheter Discontinued: 17:55 Data : 06/11/21 06:13 06/11/21 06:13 Micro: Microbiology 06/09/21 20:30 Blood Culture - Preliminary Blood NEGATIVE TO DATE 06/09/21 20:25 Blood Culture - Preliminary Blood NEGATIVE TO DATE A&P Assessment and plan (1) Acute abdomen: Assessment 55 years old gentleman status post diagnostic laparoscopy for concern of internal herniation and ischemic bowel. 06/09/2021. Plan Patient can have ice chips Broad-spectrum antibiotics. Still concerned about patient's nutrition and I would recommend to start peripheral parenteral nutrition Continue to give albumin We will continue coordinating care with Dr. Francisco Thank you for consulting general surgery to participate taking care Mr. Mccauley Status: Suspected Attestations Medical Necessity Statement*: Per admitting service Time Spent in Patient Care: (>than 50% of time spent in counselling and/or d irect pt care on unit) . Coding Level of Care Code Acute Power Originator for She Balderas Diagnoses Acute abdomen R10.0
[2021-06-11 20:00] VITALS: BP 131/76; PULSE 85; RESP 17; TEMP 36.4; O2SAT 96
[2021-06-11] MEDS: enoxaparin 40 mg/0.4 mL Syringe SUBCUT (21:36)
[2021-06-12] VITALS: BP 135/73; PULSE 81; RESP 16; TEMP 36.3; O2SAT 96
[2021-06-12] MEDS: piperacillin-tazobactam 3.375 GM in sodium chloride 0.9% (plus) 50 ML IV ×3 (00:55→17:39)
[2021-06-12] MEDS: permethrin cream 5% 60 gm 1 APPLIC TOPICAL ×3 (01:08→17:39)
[2021-06-12 04:00] VITALS: BP 126/76; PULSE 83; RESP 17; TEMP 36.4; O2SAT 96
[2021-06-12] MEDS: metroNIDAZOLE IV 500 MG/100 ML PREMIX 100 MG IV ×3 (06:53→22:01)
--- NOTE | 2021-06-12 07:33 | XRR_ITS ---
PROCEDURE INFORMATION: Exam: XR Abdomen Exam date and time: 06/12/2021 7:33 AM Age: 55 years old Clinical indication: Abdominal pain; Prior surgery TECHNIQUE: Imaging protocol: XR of the abdomen. Views: Frontal supine view of the abdomen. 1 View. COMPARISON: CT abdomen pelvis w con* [id number] 06/09/2021 1:37 PM FINDINGS: Gastrointestinal tract: There is multiple air distended loops of small bowel throughout the abdomen. No air-fluid levels seen. Air is seen within the colon. Bones/joints: Mild levocurvature of the spine is noted. No acute osseous injury seen. Soft tissues: Surgical skin clips project over the abdomen bilaterally. XR/XR KUB [id number] IMPRESSION: Nonspecific imaging findings, which can be seen with early small-bowel obstruction or adynamic ileus. Radiation Dose CTDIVOL = (mGy): DLP = (mGy-cm)
[2021-06-12 08:00] VITALS: BP 129/70; PULSE 83; RESP 17; TEMP 36.6; O2SAT 96
[2021-06-12] MEDS: doxycycline 100 mg Tablet PO ×2 (09:22→17:39)
[2021-06-12] MEDS: amlodipine 10 mg Tablet PO (09:22)
[2021-06-12] MEDS: lisinopril 10 mg Tablet PO (09:22)
[2021-06-12] MEDS: famotidine 20 mg Tablet PO ×2 (09:22→17:39)
[2021-06-12] MEDS: aspirin 81 mg EC Tablet PO (09:22)
[2021-06-12 11:41] VITALS: BP 121/66; PULSE 75; RESP 18; TEMP 36.7; O2SAT 98
[2021-06-12] MEDS: lactated ringers 1,000 ML 50 ML IV (14:22)
[2021-06-12 15:56] VITALS: BP 142/74; PULSE 78; RESP 17; TEMP 36.4; O2SAT 98
--- NOTE | 2021-06-12 16:46 | P.PN_ITS ---
Subjective Subjective: Interval history: Patient seems to look better. Passed gas in the morning. No acute events overnight Medications: Reviewed: Yes Vitals/I&O/Wt Last Vital Signs Temp 97.5 F L 06/12/21 15:56 Pulse 78 06/12/21 15:56 Resp 17 06/12/21 15:56 BP 142/74 06/12/21 15:56 Pulse Ox 98 06/12/21 15:56 06/12/21 06/12/21 06/12/21 06:59 14:59 22:59 Intake Total 150 / 450 1150 / 1150 100 / 1250 Output Total 300 / 800 425 / 425 Balance -150 / -350 725 / 725 100 / 825 Physical Exam Narrative: EXAM NARRATIVE: Patient is conscious alert oriented X3 BMI 30 Head and neck examination PERRLA no masses no cervical lymphadenopathy no jaundice Abdomen much less tender nondistended soft no organomegaly guarding or rigidity/no signs of peritonitis. Dressing was taken off and incisions are clean dry and intact with skin mack in place. Urinary Catheter Management^: Wright: Cath Placed During This Visit: yes, but has since been removed by the nurse Reason for Continuing Indwelling Catheter: Decision to DC Catheter Urinary Catheter Date of Insertion: 06/09/21 Urinary Catheter Time of Insertion: 14:30 Date Urinary Catheter Removed: 06/10/21 Time Urinary Catheter Discontinued: 17:55 Data : 06/11/21 06:13 06/11/21 06:13 A&P Assessment and plan (1) Acute abdomen: Assessment 55 years old gentleman status post diagnostic laparoscopy for concern of internal herniation and ischemic bowel. 06/09/2021. Plan Patient can have ice chips and will add popsicles Continue broad-spectrum antibiotics. Please start peripheral parenteral nutrition We will continue coordinating care with the hospitalist service Thank you for consulting general surgery to participate taking care Mr. Mccauley Status: Suspected Attestations Medical Necessity Statement*: Per admitting service Time Spent in Patient Care: (>than 50% of time spent in counselling and/or direct pt care on unit) . Coding Level of Care Code Acute Database Administration Manager for She Balderas Diagnoses Acute abdomen R10.0
[2021-06-12 20:00] VITALS: BP 127/69; PULSE 75; RESP 16; TEMP 36.5; O2SAT 97
--- NOTE | 2021-06-12 21:06 | PM.PN ---
Subjective Subjective: Interval history: He is overall doing a bit better. Set up in a chair today. Passed some flatus. No nausea or vomiting. Abdominal tenderness is improving. Vitals/I&O/Wt Last Vital Signs Temp 97.7 F 06/12/21 20:00 Pulse 75 06/12/21 20:00 Resp 16 06/12/21 20:00 BP 127/69 06/12/21 20:00 Pulse Ox 97 06/12/21 20:00 06/12/21 06/12/21 06/12/21 06:59 14:59 22:59 Intake Total 150 / 450 1150 / 1150 220 / 1370 Output Total 300 / 800 425 / 425 Balance -150 / -350 725 / 725 220 / 945 Physical Exam Const: COMMON NORMALS: no acute distress, patient oriented x3 and alert GENERAL APPEARANCE: cooperative and frail appearing ORIENTATION/CONSCIOUSNESS: Yes awake HENMT: COMMON NORMALS: oropharynx normal Neck/C-Spine: COMMON NORMALS: no JVD Resp: COMMON NORMALS: normal respiratory effort and clear to auscultation bilaterally AUSCULTATION: clear to auscultation bilaterally Cardio: COMMON NORMALS: no JVD, regular rhythm, S1 normal heart sound present, S2 normal heart sound present and No murmurs present (Cardio) RHYTHM: regular rhythm HEART SOUNDS: S1 normal heart sound present and S2 normal heart sound present GI: COMMON NORMALS: Soft to palpation INSPECTION: Yes abdominal distension PALPATION: Yes Soft to palpation and Yes Tenderness to palpation present (GI) (less) Extremity: COMMON NORMALS: no joint enlargement and no pedal edema Neuro: COMMON NORMALS: patient oriented x3 and moves all extremities SENSORIUM/ORIENTATION: Yes alert Skin: RASHES: rashes noted (Crusting of BL arms up to shoulders, LE up to thighs, sign less flakes) Confluent patches of erythema and areas of improved flaking WOUNDS: Yes wounds noted (Dorsal prox R foot scabbed wound at skin fold healing) Urinary Catheter Management^: Wright: Cath Placed During This Visit: yes, but has since been removed by the nurse Reason for Continuing Indwelling Catheter: Decision to DC Catheter Urinary Catheter Date of Insertion: 06/09/21 Urinary Catheter Time of Insertion: 14:30 Date Urinary Catheter Removed: 06/10/21 Time Urinary Catheter Discontinued: 17:55 Data : 06/11/21 06:13 06/11/21 06:13 A&P Assessment and plan (1) Abnormal CT scan, small bowel: Passed some flatus. Surgery recommendations appreciated. Starting on ice chips. Requested PPN, paper form filled out. Gentle IV hydration. No growth on repeat blood culture. Leukocytosis improving. Status post diagnostic laparoscopy without finding of herniation, bowel necrosis, with finding of hyperemia of a segment of distal ileum, without signs of perforation, appendix looks normal. Some serosanguineous ascitic fluid. Continue bowel rest. Stool studies ordered. Empirically on Zosyn, Flagyl currently. Status: Acute (2) Nausea and vomiting: So far resolved. Status: Acute Qualifiers: Vomiting type: bilious vomiting Qualified Code(s): R11.14 - Bilious vomiting (3) Egyptian scabies: Crusting is gradually decreasing. Areas confluent erythematous patches on underlying exposed skin. Continue Zosyn, doxycycline. Continue permethrin 3 times daily dosing will need 7 days then twice weekly until cured. Continue ivermectin 200 mg/kg on day 1, 2, 5, 8, 9, 15, 22. Significant decrease in crusts on bilateral arms, lower extremities. Majority moisturize. Noted punctate excoriations. Continue isolation. -Poor hygiene -Bilateral lower extremities, bilateral upper extremities -Did have eosinophilia which so far has resolved -Skin scraping was taken to dermatology for reviewing, with findings of mITE -Subsequent punch biopsy with perivascular lymphohistiocytic infiltrate with histiocytes and neutrophils, epidermal spongiosis with excoriation, dermal histiocytic infiltration, consistent with a possible arthropod infection, however, no mites, overall bodies with rudimentary legs, axial skeleton or long hair-like septae where identified. Status: Acute (4) Lower extremity cellulitis: Crusting overall decreasing, with noted smooth denuded skin, but with noted erythematous patches on upper and lower extremities at the areas of decreased crusting. 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 Myocardial perfusion imaging revealing patchy areas of persistent decreased tracer uptake in the apical region, most likely are present attrition artifacts. 2. Normal LV ejection fraction of 54%. 3. LV wall motion analysis revealing no gross wall motion normalities. 4. Normal LV volume. -Lasix 40 mg IV once daily as needed PT OT when able to resume Needs assisted placement Status: Acute Qualifiers: Laterality: right Qualified Code(s): L03.115 - Cellulitis of right lower limb (5) Congestive heart failure due to cardiomyopathy: Status: Acute (6) Venous stasis dermatitis of both lower extremities: Status: Acute (7) Lymphedema: Weeping resolved Status: Acute (8) Hypertension: Status: Acute (9) Physical deconditioning: Status: Acute (10) Protein calorie malnutrition: Status: Acute Additional A&P Information Positive blood culture: 08/03 bottles from 06/03 with corynebacterium species, suspect contamination. Negative preliminary repeat blood cultures 06/09. Right foot wound: Healing Attestations Medical Necessity Statement*: Continue admission for supportive care following recurrent vomiting, with noted bowel hyperemia and diagnostic laparoscopy, bowel rest, initiation of parenteral nutrition, pending return of bowel function, continue treatment of Egyptian scabies. 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
[2021-06-12] MEDS: enoxaparin 40 mg/0.4 mL Syringe SUBCUT (21:07)
[2021-06-13] VITALS: BP 121/70; PULSE 77; RESP 16; TEMP 36.4; O2SAT 96
[2021-06-13] MEDS: piperacillin-tazobactam 3.375 GM in sodium chloride 0.9% (plus) 50 ML IV ×4 (00:15→23:49)
[2021-06-13] MEDS: permethrin cream 5% 60 gm 1 APPLIC TOPICAL ×3 (02:27→17:42)
[2021-06-13 04:00] VITALS: BP 115/63; PULSE 72; RESP 17; TEMP 36.4; O2SAT 97
[2021-06-13] MEDS: metroNIDAZOLE IV 500 MG/100 ML PREMIX 100 MG IV ×3 (05:29→21:41)
[2021-06-13 07:56] VITALS: BP 117/68; PULSE 83; RESP 17; TEMP 36.5; O2SAT 96
[2021-06-13] MEDS: aspirin 81 mg EC Tablet PO (07:56)
[2021-06-13] MEDS: doxycycline 100 mg Tablet PO ×2 (07:56→17:41)
[2021-06-13] MEDS: famotidine 20 mg Tablet PO ×2 (07:56→17:42)
[2021-06-13] MEDS: lisinopril 10 mg Tablet PO (07:57)
[2021-06-13] MEDS: amlodipine 10 mg Tablet PO (07:57)
--- NOTE | 2021-06-13 10:11 | PC.NURSE ---
DR MICHEAL BURTON PREVIOUSLY AT SIDE
[2021-06-13] MEDS: lactated ringers 1,000 ML 50 ML IV (10:46)
[2021-06-13 11:15] VITALS: BP 109/61; PULSE 83; RESP 17; TEMP 36.6; O2SAT 96
--- NOTE | 2021-06-13 13:04 | PC.NURSE ---
ROUNDING PT REFUSES NURSES REQUEST TO REPOSITION AT CURRENT TIME - STATES HE IS PASSING GAS
[2021-06-13 16:00] VITALS: BP 121/69; PULSE 71; RESP 18; TEMP 37.2; O2SAT 98
--- NOTE | 2021-06-13 16:28 | PM.PN ---
Subjective Subjective: Interval history: Patient overall feels better and continues to pass gas. Was started on PPN. Medications: Reviewed: Yes Vitals/I&O/Wt Last Vital Signs Temp 97.8 F 06/13/21 11:15 Pulse 83 06/13/21 11:15 Resp 17 06/13/21 11:15 BP 109/61 06/13/21 11:15 Pulse Ox 96 06/13/21 11:15 06/13/21 06/13/21 06/13/21 06:59 14:59 22:59 Intake Total 150 / 1570 1125 / 1125 50 / 1175 Output Total 350 / 1275 Balance -200 / 295 1125 / 1125 50 / 1175 Physical Exam Narrative: EXAM NARRATIVE: Patient is conscious alert oriented X3 BMI 30 Head and neck examination PERRLA no masses no cervical lymphadenopathy no jaundice Abdomen not tender nondistended soft no organomegaly guarding or rigidity/no signs of peritonitis. Dressing was taken off and incisions are clean dry and intact with skin mack in place. Urinary Catheter Management^: Wright: Cath Placed During This Visit: yes, but has since been removed by the nurse Reason for Continuing Indwelling Catheter: Decision to DC Catheter Urinary Catheter Date of Insertion: 06/09/21 Urinary Catheter Time of Insertion: 14:30 Date Urinary Catheter Removed: 06/10/21 Time Urinary Catheter Discontinued: 17:55 Data : 06/11/21 06:13 06/11/21 06:13 A&P Assessment and plan (1) Acute abdomen: Assessment 55 years old gentleman status post diagnostic laparoscopy for concern of internal herniation and ischemic bowel. 06/09/2021. Plan Continue ice chips and will add popsicles Continue broad-spectrum antibiotics. Continue peripheral parenteral nutrition If patient continues to do well tomorrow will entertain the concept of p.o. clear liquid diet and protein shakes. Thank you for consulting general surgery to participate taking care Mr. Mccauley Status: Suspected Attestations Medical Necessity Statement*: Per admitting service Time Spent in Patient Care: (>than 50% of time spent in counselling and/or direct pt care on unit). 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
--- NOTE | 2021-06-13 19:16 | PM.PN ---
Subjective Subjective: Interval history: Agreeable to try to sit in a chair again today. Passing some additional flatus. Abdominal symptoms getting better. Tolerating ice chips. Vitals/I&O/Wt Last Vital Signs Temp 98.9 F 06/13/21 16:00 Pulse 71 06/13/21 16:00 Resp 18 06/13/21 16:00 BP 121/69 06/13/21 16:00 Pulse Ox 98 06/13/21 16:00 06/13/21 06/13/21 06/13/21 06:59 14:59 22:59 Intake Total 150 / 1570 1125 / 1125 150 / 1275 Output Total 350 / 1275 500 / 500 Balance -200 / 295 1125 / 1125 -350 / 775 Physical Exam Const: COMMON NORMALS: no acute distress, patient oriented x3 and alert GENERAL APPEARANCE: cooperative and frail appearing ORIENTATION/CONSCIOUSNESS: Yes awake HENMT: COMMON NORMALS: oropharynx normal Neck/C-Spine: COMMON NORMALS: no JVD Resp: COMMON NORMALS: normal respiratory effort and clear to auscultation bilaterally AUSCULTATION: clear to auscultation bilaterally Cardio: COMMON NORMALS: no JVD, regular rhythm, S1 normal heart sound present, S2 normal heart sound present and No murmurs present (Cardio) RHYTHM: regular rhythm HEART SOUNDS: S1 normal heart sound present and S2 normal heart sound present GI: COMMON NORMALS: Soft to palpation INSPECTION: Yes abdominal distension AUSCULTATION: Yes Hypoactive bowel sounds present PALPATION: Yes Soft to palpation and Yes Tenderness to palpation present (GI) (less) Extremity: COMMON NORMALS: no joint enlargement and no pedal edema Neuro: COMMON NORMALS: patient oriented x3 and moves all extremities SENSORIUM/ORIENTATION: Yes alert Skin: RASHES: rashes noted (Crusting of BL arms up to shoulders, LE up to thighs, sign less flakes) WOUNDS: Yes wounds noted (Dorsal prox R foot scabbed wound at skin fold healing) Urinary Catheter Management^: Wright: Cath Placed During This Visit: yes, but has since been removed by the nurse Reason for Continuing Indwelling Catheter: Decision to DC Catheter Urinary Catheter Date of Insertion: 06/09/21 Urinary Catheter Time of Insertion: 14:30 Date Urinary Catheter Removed: 06/10/21 Time Urinary Catheter Discontinued: 17:55 Data : 06/11/21 06:13 11/12/21 06:13 A&P Assessment and plan (1) Abnormal CT scan, small bowel: Tolerating ice chips. Appreciate surgical recommendations. Continue with bowel rest, gradual advancement of diet as tolerating. PPN. Gentle IV hydration. No growth on repeat blood culture. Leukocytosis improving. Status post diagnostic laparoscopy without finding of herniation, bowel necrosis, with finding of hyperemia of a segment of distal ileum, without signs of perforation, appendix looks normal. Some serosanguineous ascitic fluid. Continue bowel rest. Stool studies ordered. Empirically on Zosyn, Flagyl currently. Status: Acute (2) Nausea and vomiting: So far resolved. Status: Acute Qualifiers: Vomiting type: bilious vomiting Qualified Code(s): R11.14 - Bilious vomiting (3) Maced[place] scabies: Crusting is gradually decreasing. Areas confluent erythematous patches on underlying exposed skin improving, especially visible on the left arm, left leg. Continue Zosyn, doxycycline. Continue permethrin 3 times daily dosing will need 7 days then starting tomorrow twice weekly until cured. Continue ivermectin 200 mg/kg on day 1, 2, 5, 8, 9, 15, 22. Significant decrease in crusts on bilateral arms, lower extremities. Majority moisturize. Noted punctate excoriations. Continue isolation. -Poor hygiene -Bilateral lower extremities, bilateral upper extremities -Did have eosinophilia which so far has resolved -Skin scraping was taken to dermatology for reviewing, with findings of mITE -Subsequent punch biopsy with perivascular lymphohistiocytic infiltrate with histiocytes and neutrophils, epidermal spongiosis with excoriation, dermal histiocytic infiltration, consistent with a possible arthropod infection, however, no mites, overall bodies with rudimentary legs, axial skeleton or long hair-like septae where identified. Status: Acute (4) Lower extremity cellulitis: Crusting overall decreasing, with noted smooth denuded skin, but with noted erythematous patches on upper and lower extremities at the areas of decreased crusting. 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 Myocardial perfusion imaging revealing patchy areas of persistent decreased tracer uptake in the apical region, most likely are present attrition artifacts. 2. Normal LV ejection fraction of 54%. 3. LV wall motion analysis revealing no gross wall motion normalities. 4. Normal LV volume. -Lasix 40 mg IV once daily as needed PT OT when able to resume Needs group home placement Status: Acute Qualifiers: Laterality: right Qualified Code(s): L03.115 - Cellulitis of right lower limb (5) Congestive heart failure due to cardiomyopathy: Status: Acute (6) Venous stasis dermatitis of both lower extremities: Status: Acute (7) Lymphedema: Weeping resolved Status: Acute (8) Hypertension: Status: Acute (9) Physical deconditioning: Status: Acute (10) Protein calorie malnutrition: PPN Status: Acute Additional A&P Information Positive blood culture: 08/03 bottles from 06/03 with corynebacterium species, suspect contamination. Negative preliminary repeat blood cultures 06/09. Right foot wound: Healing Attestations Medical Necessity Statement*: Continue admission for continued support following recurrent nausea and vomiting with hyperemic bowel segment, IV hydration and PPN while advancing diet as per surgery, continue treatment for Macedonian scabies. Post discharge planning. Coding Level of Care Code Acute Director Surgical for g Fwd Diagnoses Abnormal CT scan, small bowel R93.3 Nausea and vomiting R11.14 Vomiting type: bilious vomiting Macedonian scabies B86 Lower extremity cellulitis L03.115 Laterality: right Congestive heart failure due to cardiomyopathy I50.9; I42.9 Venous stasis dermatitis of both lower extremities I87.2 Lymphedema I89.0 Hypertension I10 Physical deconditioning R53.81 Protein calorie malnutrition E46
[2021-06-13 20:00] VITALS: BP 124/68; PULSE 73; RESP 17; TEMP 36.5; O2SAT 96
[2021-06-13] MEDS: enoxaparin 40 mg/0.4 mL Syringe SUBCUT (20:28)
[2021-06-14] VITALS: BP 100/58; PULSE 77; RESP 16; TEMP 36.4; O2SAT 95
[2021-06-14] MEDS: lactated ringers 1,000 ML 50 ML IV ×2 (03:52→23:08)
[2021-06-14 04:00] VITALS: BP 114/69; PULSE 79; RESP 17; TEMP 36.6; O2SAT 96
[2021-06-14] MEDS: metroNIDAZOLE IV 500 MG/100 ML PREMIX 100 MG IV (05:45)
[2021-06-14 08:00] VITALS: BP 133/65; PULSE 74; RESP 17; TEMP 36.6; O2SAT 96
[2021-06-14] MEDS: doxycycline 100 mg Tablet PO (09:16)
[2021-06-14] MEDS: piperacillin-tazobactam 3.375 GM in sodium chloride 0.9% (plus) 50 ML IV ×3 (09:16→23:08)
[2021-06-14] MEDS: famotidine 20 mg Tablet PO ×2 (09:17→17:15)
[2021-06-14] MEDS: amlodipine 10 mg Tablet PO (09:17)
[2021-06-14] MEDS: lisinopril 10 mg Tablet PO (09:17)
[2021-06-14] MEDS: aspirin 81 mg EC Tablet PO (09:17)
[2021-06-14 10:45] LABS: Basophils % 0.5 %; Eosinophils # 2.6 10^3/uL (0.0-0.8); Eosinophils % 29.6 %; Hematocrit 36.7 % (42.0-52.0); Lymphocytes # 1.4 10^3/uL (0.8-4.8); Lymphocytes % 16.2 %; Mean Corpuscular HGB Conc 32.7 g/dL (30.0-36.0); Mean Corpuscular Hemoglobin 32.4 pg (28.0-34.0); Mean Corpuscular Volume 99.2 fl (80-94); Mean Platelet Volume 8.8 fL (7.4-10.4); Monocytes # 0.6 10^3/uL (0.2-0.9); Monocytes % 7.4 %; Neutrophils # 3.96 10^3/uL (1.8-7.7); Nucleated Red Blood Cells % 0 %; Platelet Count 391 10^3/cmm (130-400); Red Cell Distribution Width 13.6 % (12.1-15.1); White Blood Count 8.6 10^3/uL (4.0-10.0)
[2021-06-14] MEDS: permethrin cream 5% 60 gm 1 APPLIC TOPICAL ×2 (10:49→18:54)
[2021-06-14 11:00] LABS: Alanine Aminotransferase < 5 U/L (0-41); Albumin Level 2.3 g/dL (3.5-5.2); Alkaline Phosphatase 44 IU/L (40-130); Anion Gap 12.3 (5-19); Aspartate Amino Transferase 9 U/L (0-40); Blood Urea Nitrogen 11 mg/dL (6-20); Calcium 7.9 mg/dL (8.5-10.5); Carbon Dioxide 24 mmol/L (22-29); Chloride 107 mmol/L (98-107); Globulin 2.8 g/dL (1.3-4.6); Glomerular Filtration Rate 139.9 mL/min (90-130); Glucose 183 mg/dL (65-115); Osmolality Calculated 294 mOsm/kg (285-295); Potassium 3.3 mmol/L (3.5-5.1); Sodium 140 mmol/L (136-145); Total Bilirubin 0.4 mg/dL (0.15-1.2); Total Protein 5.1 g/dL (6.6-8.7)
[2021-06-14 12:00] VITALS: BP 111/67; PULSE 81; RESP 17; TEMP 36.4; O2SAT 98
[2021-06-14 15:25] VITALS: BP 148/73; PULSE 70; RESP 17; TEMP 36.3; O2SAT 98
--- NOTE | 2021-06-14 16:39 | PM.PN ---
Subjective Subjective: Interval history: Patient overall feels well. Denies abdominal pain. Continues to pass gas. Medications: Reviewed: Yes Vitals/I&O/Wt Last Vital Signs Temp 97.4 F L 06/14/21 15:25 Pulse 70 06/14/21 15:25 Resp 17 06/14/21 15:25 BP 148/73 06/14/21 15:25 Pulse Ox 98 06/14/21 15:25 06/14/21 06/14/21 06/14/21 06:59 14:59 22:59 Intake Total 2131.4 / 3776.4 820 / 820 Output Total 450 / 450 Balance 2131.4 / 3276.4 370 / 370 Physical Exam Narrative: EXAM NARRATIVE: Patient is conscious alert oriented X3 BMI 30 Head and neck examination PERRLA no masses no cervical lymphadenopathy no jaundice Abdomen not tender nondistended soft no organomegaly guarding or rigidity/no signs of peritonitis.incisions are clean dry and intact with skin mack in place. Urinary Catheter Management^: Wright: Cath Placed During This Visit: yes, but has since been removed by the nurse Reason for Continuing Indwelling Catheter: Decision to DC Catheter Urinary Catheter Date of Insertion: 06/09/21 Urinary Catheter Time of Insertion: 14:30 Date Urinary Catheter Removed: 06/10/21 Time Urinary Catheter Discontinued: 17:55 Data : 06/14/21 10:30 06/14/21 10:30 A&P Assessment and plan (1) Acute abdomen: Assessment 55 years old gentleman status post diagnostic laparoscopy for concern of internal herniation and ischemic bowel. 06/09/2021. Plan Start the patient on clear liquid diet and Ensure If he continues to do well can advance as tolerated can be discharged from surgical standpoint of view once medically appropriate Can wean off peripheral parenteral nutrition Return to surgery office in 2-week Thank you for consulting general surgery to participate taking care Mr. Mccauley Status: Suspected Attestations Medical Necessity Statement*: Per admitting service Time Spent in Patient Care: (>than 50% of time spent in counselling and/or direct pt care on unit). 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
--- NOTE | 2021-06-14 16:44 | P.PN_ITS ---
Subjective Subjective: Interval history: Hospital course, labs appreciated. On examination patient sitting up in chair. Started on clear liquid diet per surgery today. Tolerated well. Denies any nausea vomiting, headache. States as per him the leg ulcers and the wound and itching on the leg is improving. Has remained afebrile and hemodynamically stable. Medications: Reviewed: Yes Vitals/I&O/Wt Last Vital Signs Temp 97.4 F L 06/14/21 15:25 Pulse 70 06/14/21 15:25 Resp 17 06/14/21 15:25 BP 148/73 06/14/21 15:25 Pulse Ox 98 06/14/21 15:25 06/14/21 06/14/21 06/14/21 06:59 14:59 22:59 Intake Total 2131.4 / 3776.4 820 / 820 Output Total 450 / 450 Balance 2131.4 / 3276.4 370 / 370 Physical Exam Const: COMMON NORMALS: no acute distress, patient oriented x3 and alert GENERAL APPEARANCE: cooperative and frail appearing ORIENTATION/CONSCI OUSNESS: Yes awake HENMT: COMMON NORMALS: normocephalic and oropharynx normal HEAD & SCALP: normocephalic Eye: COMMON NORMALS: Equal, round and reactive pupils present GENERAL EYE: appearance normal, both eyes and all related structures PUPIL: Yes Equal, round and reactive pupils present Neck/C-Spine: COMMON NORMALS: full ROM, no lymphadenopathy, no JVD and Thyroid normal THYROID: Thyroid normal Lymph: LYMPHATIC: no lymphadenopathy noted Resp: COMMON NORMALS: normal respiratory effort, No retractions, No use of accessory muscles and clear to auscultation bilaterally AUSCULTATION: clear to auscultation bilaterally Cardio: COMMON NORMALS: no JVD, regular rate, regular rhythm, S1 normal heart sound present, S2 normal heart sound present, No gallops present (Cardio), No clicks present (Cardio) and No murmurs present (Cardio) RATE: regular rate RHYTHM: regular rhythm HEART SOUNDS: S1 normal heart sound present and S2 normal heart sound present GI: COMMON NORMALS: Soft to palpation and No hepatosplenomegaly present INSPECTION: Yes abdominal distension AUSCULTATION: Yes Hypoactive bowel sounds present PALPATION: Yes Soft to palpation, Yes Tenderness to palpation present (GI) (less) and Yes No hepatosplenomegaly present Extremity: COMMON NORMALS: normal to inspection, full ROM, no joint enlargement and no pedal edema Neuro: COMMON NORMALS: patient oriented x3, CN's II-XII intact bilaterally and moves all extremities SENSORIUM/ORIENTATION: Yes alert Psych: COMMON NORMALS: mental status grossly normal Skin: NARRATIVE SKIN EXAM: Bilateral lower extremities, in upper extremities, forearms, flaky rash, with multiple skin layers, skin layers, improved Bilateral lower extremities, bilateral feet, open sores, open weepage, RASHES: rashes noted (Crusting of BL arms up to shoulders, LE up to thighs, sign less flakes) WOUNDS: Yes wounds noted (Dorsal prox R foot scabbed wound at skin fold healing) Urinary Catheter Management^: Wright: Cath Placed During This Visit: yes, but has since been removed by the nurse Reason for Continuing Indwelling Catheter: Decision to DC Catheter Urinary Catheter Date of Insertion: 06/09/21 Urinary Catheter Time of Insertion: 14:30 Date Urinary Catheter Removed: 06/10/21 Time Urinary Catheter Discontinued: 17:55 Data : 06/14/21 10:30 06/14/21 10:30 A&P Assessment and plan (1) Abnormal CT scan, small bowel: Tolerating ice chips. Appreciate surgical recommendations. Continue with bowel rest, gradual advancement of diet as tolerating. PPN. Gentle IV hydration. No growth on repeat blood culture. Leukocytosis improving. Status post diagnostic laparoscopy without finding of herniation, bowel necrosis, with finding of hyperemia of a segment of distal ileum, without signs of perforation, appendix looks normal. Some serosanguineous ascitic fluid. Continue bowel rest. Stool studies ordered. Empirically on Zosyn, Flagyl currently. Status: Acute (2) Nausea and vomiting: So far resolved. Status: Acute Qualifiers: Vomiting type: bilious vomiting Qualified Code(s): R11.14 - Bilious v omiting (3) [place] scabies: Crusting is gradually decreasing. Areas confluent erythematous patches on underlying exposed skin improving, especially visible on the left arm, left leg. Continue Zosyn, doxycycline. Continue permethrin 3 times daily dosing will need 7 days then starting tomorrow twice weekly until cured. Continue ivermectin 200 mg/kg on day 1, 2, 5, 8, 9, 15, 22. Significant decrease in crusts on bilateral arms, lower extremities. Majority moisturize. Noted punctate excoriations. Continue isolation. -Poor hygiene -Bilateral lower extremities, bilateral upper extremities -Did have eosinophilia which so far has resolved -Skin scraping was taken to dermatology for reviewing, with findings of mITE -Subsequent punch biopsy with perivascular lymphohistiocytic infiltrate with histiocytes and neutrophils, epidermal spongiosis with excoriation, dermal histiocytic infiltration, consistent with a possible arthropod infection, however, no mites, overall bodies with rudimentary legs, axial skeleton or long hair-like septae where identified. Status: Acute (4) Lower extremity cellulitis: Crusting overall decreasing, with noted smooth denuded skin, but with noted erythematous patches on upper and lower extremities at the areas of decreased crusting. 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 Myocardial perfusion imaging revealing patchy areas of persistent decreased tracer uptake in the apical region, most likely are present attrition artifacts. 2. Normal LV ejection fraction of 54%. 3. LV wall motion analysis revealing no gross wall motion normalities. 4. Normal LV volume. -Lasix 40 mg IV once daily as needed PT OT when able to resume Needs care home placement Status: Acute Qualifiers: Laterality: right Qualified Code(s): L03.115 - Cellulitis of right lower limb (5) Congestive heart failure due to cardiomyopathy: Status: Acute (6) Venous stasis dermatitis of both lower extremities: Status: Acute (7) Lymphedema: Weeping resolved Status: Acute (8) Hypertension: Status: Acute (9) Physical deconditioning: Status: Acute (10) Protein calorie malnutrition: PPN Status: Acute Additional A&P Information Positive blood culture: 08/03 bottles from 06/03 with corynebacterium species, suspect contamination. Negative preliminary repeat blood cultures 06/09. Right foot wound: Healing Plan for the day: Continue with permethrin. Will be twice weekly from tomorrow onwards. 3 more doses of ivermectin left with next dose on June 17, June 24, June 2. Confirmed and discussed with pharmacy. Will advance diet to full liquid if tolerates clear liquid well. Subsequently will stop PPN. Continue with Zosyn. Stop doxycycline. Stop Flagyl. Continue with physical therapy. Discharge planning: Plan to discharge to SNF. Awaiting authorization. Discussed with case management. Attestations Medical Necessity Statement*: Requires further hospitalization for further advancement of diet given recent diagnostic laparoscopy for colitis, treatment of Polish scabies while safe discharge planning is sought Time Spent in Patient Care: Greater than 35 minutes (>than 50% of time spent in counselling and/or direct pt care on unit) . Coding Level of Care Code Acute Emergency Manager for Chg Fwd Diagnoses Abnormal CT scan, small bowel R93.3 Nausea and vomiting R11.14 Vomiting type: bilious vomiting Polish scabies B86 Lower extremity cellulitis L03.115 Laterality: right Congestive heart failure due to cardiomyopathy I50.9; I42.9 Venous stasis dermatitis of both lower extremities I87.2 Lymphedema I89.0 Hypertension I10 Physical deconditioning R53.81 Protein calorie malnutrition E46
[2021-06-14 20:33] VITALS: BP 131/67; PULSE 84; RESP 18; TEMP 36.4; O2SAT 99
[2021-06-14] MEDS: enoxaparin 40 mg/0.4 mL Syringe SUBCUT (21:08)
[2021-06-15 00:50] VITALS: BP 128/58; PULSE 72; RESP 16; O2SAT 99
[2021-06-15 04:00] VITALS: BP 109/62; PULSE 77; RESP 16; TEMP 36.8; O2SAT 96
[2021-06-15 07:53] VITALS: BP 123/69; PULSE 78; RESP 14; TEMP 36.5; O2SAT 97
--- NOTE | 2021-06-15 07:54 | PC.NURSE ---
shiftman changed linens
[2021-06-15] MEDS: lisinopril 10 mg Tablet PO (08:22)
[2021-06-15] MEDS: amlodipine 10 mg Tablet PO (08:22)
[2021-06-15] MEDS: famotidine 20 mg Tablet PO (08:22)
[2021-06-15] MEDS: piperacillin-tazobactam 3.375 GM in sodium chloride 0.9% (plus) 50 ML IV (08:22)
[2021-06-15] MEDS: aspirin 81 mg EC Tablet PO (08:22)
[2021-06-15 10:03] LABS: SARS Covid-2 Antigen Negative (Negative)
[2021-06-15 10:19] LABS: Basophils # 0.1 10^3/uL (0.0-0.1); Basophils % 0.5 %; Eosinophils # 2.8 10^3/uL (0.0-0.8); Eosinophils % 23.5 %; Hematocrit 38.9 % (42.0-52.0); Hemoglobin 12.6 g/dL (11.7-16.6); Lymphocytes # 1.5 10^3/uL (0.8-4.8); Mean Corpuscular HGB Conc 32.4 g/dL (30.0-36.0); Mean Corpuscular Hemoglobin 32.3 pg (28.0-34.0); Mean Corpuscular Volume 99.7 fl (80-94); Mean Platelet Volume 8.8 fL (7.4-10.4); Monocytes # 0.8 10^3/uL (0.2-0.9); Monocytes % 6.9 %; Neutrophils # 6.63 10^3/uL (1.8-7.7); Neutrophils % 55.7 %; Nucleated Red Blood Cells % 0 %; Platelet Count 397 10^3/cmm (130-400); Red Cell Distribution Width 13.9 % (12.1-15.1); White Blood Count 11.9 10^3/uL (4.0-10.0)
[2021-06-15 10:53] LABS: Alanine Aminotransferase 7 U/L (0-41); Albumin Level 2.3 g/dL (3.5-5.2); Alkaline Phosphatase 43 IU/L (40-130); Anion Gap 14.5 (5-19); Aspartate Amino Transferase 11 U/L (0-40); Blood Urea Nitrogen 9 mg/dL (6-20); Calcium 7.6 mg/dL (8.5-10.5); Carbon Dioxide 21 mmol/L (22-29); Chloride 105 mmol/L (98-107); Globulin 2.9 g/dL (1.3-4.6); Glomerular Filtration Rate 117.1 mL/min (90-130); Glucose 160 mg/dL (65-115); Osmolality Calculated 286 mOsm/kg (285-295); Potassium 3.5 mmol/L (3.5-5.1); Sodium 137 mmol/L (136-145); Total Bilirubin 0.4 mg/dL (0.15-1.2); Total Protein 5.2 g/dL (6.6-8.7)
[2021-06-15 11:41] VITALS: BP 111/68; PULSE 94; RESP 16; TEMP 36.5; O2SAT 98
--- NOTE | 2021-06-15 13:12 | PM.DCS ---
Discharge Providers Date of Admission: 06/04/21 18:07 Date of Discharge: June 15, 2021 Attending Provider at Admission: Leonel Rosas MD Attending Provider at Discharge: Marvin Govea MD Consults: Surgery: Dr. Rosales Primary Care Provider: Chaparro Marvin MD Diagnoses at Discharge Discharge Diagnosis (1) Abnormal CT scan, small bowel: Status: Acute (2) Nausea and vomiting: Status: Acute Qualifiers: Vomiting type: bilious vomiting Qualified Code(s): R11.14 - Bilious vomiting (3) Serbian scabies: Status: Acute (4) Lower extremity cellulitis: Status: Acute Qualifiers: Laterality: right Qualified Code(s): L03.115 - Cellulitis of right lower limb (5) Congestive heart failure due to cardiomyopathy: Status: Acute Permanent problem details: Mixed systolic and diastolic (6) Venous stasis dermatitis of both lower extremities: Status: Acute (7) Lymphedema: Status: Acute Permanent problem details: Severe with weeping yellow crusty discharge going bilateral arms above the elbows and bilateral legs about the knees (8) Hypertension: Status: Acute (9) Physical deconditioning: Status: Acute (10) Protein calorie malnutrition: Status: Acute Reason for Visit Reason for Visit: BILATERAL LEG PAIN Hospital Course Hospital Course History as per the H&P on day of admission. 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 Patient has a history of chronic venous stasis dermatitis, lymphedema, bilateral extremity cellulitis, was recently discharged to [facility] for long-term antibiotic and wound care, was recently discharged home, currently managed at home, he lives by himself, he tells me that over the last few weeks he has developed increased swelling of his bilateral extremities, increased tenderness, warmth, swelling. He tells me that his primary care provider is working on setting up home health care for him but he does not understand why his legs have become more swollen, more tender, he has developed extensive flaking of his dermatitis of the bilateral extremities. The and the flaking also has spread up to both arms, currently on both forearms. No fevers, chills, nausea, vomiting. No history of prior rashes. No history of scabies. No history of HIV. No history of hepatitis. No history of celiac disease. Patient went to the hospital for further management of erythematous rash in setting of chronic venous insufficiency and for lower limb cellulitis. Erythematous rash and flaky skin was present on all 4 extremities. The case was reviewed with grapple crew leader and skin scraping showed findings consistent with Serbian scabies. He was started on broad-spectrum antibiotics and for treatment of scabies with ivermectin and permethrin. Skin biopsies were taken on June 05 and were also consistent with Serbian scabies. During hospitalization patient was complaining of persistent abdominal pain for which abdominal CT scan was done which showed abnormal small bowel loops in the right abdomen which are highly suspicious of ischemic bowel disease or shock bowel. Surgery was reconsulted and he underwent diagnostic laparoscopy with concerns for internal herniation and ischemic bowel. Diagnostic laparoscopy was negative. Patient was started on PPN for malnutrition while his diet was gradually advanced. Currently he is doing well with mechanical soft diet. During hospitalization patient's initial blood culture from day of admission 1 out of 4 bottles are also found to positive for Corynebacterium which was thought to be a contaminant. Repeat blood cultures so far have remained negative. Patient remained hemodynamically stable and afebrile during hospitalization. Patient was started on ivermectin treatment with scheduled day 1, 2, 8, 9, 22, 29. Patient is due for June 17, June 24 and July 01. He is to use permethrin twice weekly going forward till scabies is cleared off. He is to take oral doxycycline and ciprofloxacin for next 1 week. Safe discharge planning were discussed in detail with the patient regarding poor social support and social discord. SNF placement was sought for safe discharge planning. His hospitalization was prolonged while safe discharge planning was sought. He has been discharged in hemodynamically stable condition to SNF for further rehabitation. Physical Exam Const: COMMON NORMALS: no acute distress, patient oriented x3 and alert GENERAL APPEARANCE: cooperative and frail appearing ORIENTATION/CONSCIOUSNESS: Yes awake HENMT: COMMON NORMALS: normocephalic and oropharynx normal HEAD & SCALP: normocephalic Eye: COMMON NORMALS: Equal, round and reactive pupils present GENERAL EYE: appearance normal, both eyes and all related structures PUPIL: Yes Equal, round and reactive pupils present Neck/C-Spine: COMMON NORMALS: full ROM, no lymphadenopathy, no JVD and Thyroid normal THYROID: Thyroid normal Lymph: LYMPHATIC: no lymphadenopathy noted Resp: COMMON NORMALS: normal respiratory effort, No retractions, No use of accessory muscles and clear to auscultation bilaterally AUSCULTATION: clear to auscultation bilaterally Cardio: COMMON NORMALS: no JVD, regular rate, regular rhythm, S1 normal heart sound present, S2 normal heart sound present, No gallops present (Cardio), No clicks present (Cardio) and No murmurs present (Cardio) RATE: regular rate RHYTHM: regular rhythm HEART SOUNDS: S1 normal heart sound present and S2 normal heart sound present GI: COMMON NORMALS: Soft to palpation and No hepatosplenomegaly present INSPECTION: Yes abdominal distension AUSCULTATION: Yes Hypoactive bowel sounds present PALPATION: Yes Soft to palpation, Yes Tenderness to palpation present (GI) (less) and Yes No hepatosplenomegaly present Extremity: COMMON NORMALS: normal to inspection, full ROM, no joint enlargement and no pedal edema Neuro: COMMON NORMALS: patient oriented x3, CN's II-XII intact bilaterally and moves all extremities SENSORIUM/ORIENTATION: Yes alert Psych: COMMON NORMALS: mental status grossly normal Skin: NARRATIVE SKIN EXAM: Bilateral lower extremities, in upper extremities, forearms, flaky rash, with multiple skin layers, skin layers, improved Bilateral lower extremities, bilateral feet, open sores, open weepage, RASHES: rashes noted (Crusting of BL arms up to shoulders, LE up to thighs, sign less flakes) WOUNDS: Yes wounds noted (Dorsal prox R foot scabbed wound at skin fold healing) Urinary Catheter Management^: Wright: Cath Placed During This Visit: yes, but has since been removed by the nurse Reason for Continuing Indwelling Catheter: Decision to DC Catheter Urinary Catheter Date of Insertion: 06/09/21 Urinary Catheter Time of Insertion: 14:30 Date Urinary Catheter Removed: 06/10/21 Time Urinary Catheter Discontinued: 17:55 Discharge Data Data Completed and Pending: Completed Studies During Hospitalization Category Date Time Status CT abdomen pelvis w con* 30701 Rout ine Cat Scan 06/09/21 06:49 Completed XR KUB 63466 Rout ine Exams 06/12/21 07:33 Completed XR acute abdomen series 41705 Routi ne Exams 06/08/21 14:26 Completed XR foot LT 2V 736 20 Urgent Exams 06/03/21 17:04 Completed XR foot RT 2V 736 20 Urgent Exams 06/03/21 17:04 Completed XR tibia fibula L T 2V 64309 Urgent Exams 06/03/21 17:04 Completed XR tibia fibula R T 2V 19714 Urgent Exams 06/03/21 17:04 Completed Pathology: Surgic al [PTH] Routine Pth 06/05/21 14:25 Completed Pending at discharge Category Date Time Status ES surgery / GI i mages Routine Exams 06/09/21 15:27 Taken KEVIN Profile Rheum atology Stat Lab 06/03/21 10:02 Results Celiac Disease Di agniostic Taylor Stat Lab 06/03/21 10:02 Results Complete Blood Co unt w/Auto AM LABS Lab 06/16/21 04:00 Ordered Comprehensive Met abolic Panel AM LA BS Lab 06/16/21 04:00 Ordered Enteric Bacterial Panel by PCR Rout ine Lab 06/10/21 08:13 Uncollected Enteric Parasite Panel by PCR Routi ne Lab 06/08/21 14:38 Uncollected Fecal Occult Bloo d [Immunochemical Fecal OCB] Routine Lab 06/09/21 01:15 Uncollected Labs from last 24 hours 06/15/21 06/15/21 06/15/21 10:00 10:00 09:16 WBC 11.9 H RBC 3.90 L Hgb 12.6 Hct 38.9 L MCV 99.7 H MCH 32.3 MCHC 32.4 RDW 13.9 Plt Count 397 MPV 8.8 Neut % (Auto) 55.7 Lymph % (Auto) 13.0 Gulf % (Auto) 6.9 Eos % (Auto) 23.5 Baso % (Auto) 0.5 Neut # (Auto) 6.63 Lymph # (Auto) 1.5 Gulf # (Auto) 0.8 Eos # (Auto) 2.8 H Baso # (Auto) 0.1 Nucleated RBC % (a uto) 0 Nucleated RBCs # 0.0 Sodium 137 Potassium 3.5 Chloride 105 Carbon Dioxide 21 L Anion Gap 14.5 BUN 9 Creatinine 0.7 GFR Calculation 117.1 Glucose 160 H Calculated Osmolal ity 286 Calcium 7.6 L Total Bilirubin 0.4 AST 11 ALT 7 Alkaline Phosphata se 43 Total Protein 5.2 L Albumin 2.3 L Globulin 2.9 SARS-CoV-2 Ag (Rap id) Negative Addt'l Data from Hospital Stay: Laboratory Results WBC 11.9 10^3/uL (4.0 -10.0) H 06/15/21 10:00 RBC 3.90 10^6/uL (4.1 -5.3) L 06/15/21 10:00 Hgb 12.6 g/dL (11.7-1 6.6) 06/15/21 10:00 Hct 38.9 % (42.0-52.0 ) L 06/15/21 10:00 MCV 99.7 fl (80-94) H 06/15/21 10:00 MCH 32.3 pg (28.0-34. 0) 06/15/21 10:00 MCHC 32.4 g/dL (30.0-3 6.0) 06/15/21 10:00 RDW 13.9 % (12.1-15.1 ) 06/15/21 10:00 Plt Count 397 10^3/cmm (130 -400) 06/15/21 10:00 MPV 8.8 fL (7.4-10.4) 06/15/21 10:00 Neut % (Auto) 55.7 % 06/15/21 10:00 Lymph % (Auto) 13.0 % 06/15/21 10:00 Gulf % (Auto) 6.9 % 06/15/21 10:00 Eos % (Auto) 23.5 % 06/15/21 10:00 Baso % (Auto) 0.5 % 06/15/21 10:00 Neut # (Auto) 6.63 10^3/uL (1.8 -7.7) 06/15/21 10:00 Lymph # (Auto) 1.5 10^3/uL (0.8- 4.8) 06/15/21 10:00 Gulf # (Auto) 0.8 10^3/uL (0.2- 0.9) 06/15/21 10:00 Eos # (Auto) 2.8 10^3/uL (0.0- 0.8) H 06/15/21 10:00 Baso # (Auto) 0.1 10^3/uL (0.0- 0.1) 06/15/21 10:00 Nucleated RBC % (a uto) 0 % 06/15/21 10:00 Nucleated RBCs # 0.0 /100WBC 06/15/21 10:00 ESR 28 mm/hr (0-10) H 06/03/21 10:02 Sodium 137 mmol/L (136-1 45) 06/15/21 10:00 Potassium 3.5 mmol/L (3.5-5 .1) 06/15/21 10:00 Chloride 105 mmol/L (98-10 7) 06/15/21 10:00 Carbon Dioxide 21 mmol/L (22-29) L 06/15/21 10:00 Anion Gap 14.5 (5-19) 06/15/21 10:00 BUN 9 mg/dL (6-20) 06/15/21 10:00 Creatinine 0.7 mg/dL (0.7-1. 2) 06/15/21 10:00 GFR Calculation 117.1 mL/min (90- 130) 06/15/21 10:00 Glucose 160 mg/dL (65-115 ) H 06/15/21 10:00 Estimat Average Gl ucose 97 06/04/21 10:02 Hemoglobin A1c 5.0 % (4.0-6.0) 06/04/21 10:02 Calculated Osmolal ity 286 mOsm/kg (285- 295) 06/15/21 10:00 Lactate 0.8 mmol/L (0.5-2 .2) 06/09/21 15:00 Calcium 7.6 mg/dL (8.5-10 .5) L 06/15/21 10:00 Phosphorus 3.1 mg/dL (2.5-4. 5) 06/06/21 05:10 Magnesium 2.0 mg/dL (1.7-2. 3) 06/06/21 05:10 Total Bilirubin 0.4 mg/dL (0.15-1 .2) 06/15/21 10:00 AST 11 U/L (0-40) 06/15/21 10:00 ALT 7 U/L (0-41) 06/15/21 10:00 Alkaline Phosphata se 43 IU/L (40-130) 06/15/21 10:00 C-Reactive Protein 66.5 mg/L (0.0-4. 9) H 06/03/21 15:45 Total Protein 5.2 g/dL (6.6-8.7 ) L 06/15/21 10:00 Albumin 2.3 g/dL (3.5-5.2 ) L 06/15/21 10:00 Globulin 2.9 g/dL (1.3-4.6 ) 06/15/21 10:00 Lipase 43 U/L (13-60) 06/03/21 15:45 Procalcitonin 0.06 ng/mL (0-0.5 ) 06/03/21 15:45 TSH 1.87 uIU/mL (0.27 -4.20) 06/04/21 10:02 Vancomycin Trough 33.1 ug/mL (10-15 ) H* 06/05/21 06:02 IgA 498 mg/dL (47-310 ) H 06/03/21 10:02 KEVIN IFA Animal Tis Res Negative (NEGATI VE) 06/03/21 10:02 NAOMI-1 Antibody <1.0 neg AI (<1.0 NEG) 06/03/21 10:02 SS-A Antibody <1.0 neg AI (<1.0 NEG) 06/03/21 10:02 SS-B Antibody <1.0 neg AI (<1.0 NEG) 06/03/21 10:02 Sm (Mc) Antibod y <1.0 neg AI (<1.0 NEG) 06/03/21 10:02 CAREER PLACEMENT SPECIALIST Antibody <1.0 neg AI (<1.0 NEG) 06/03/21 10:02 Scl-70 Antibody <1.0 neg AI (<1.0 NEG) 06/03/21 10:02 Centromere B Antib deidra <1.0 neg AI (<1.0 NEG) 06/03/21 10:02 Thyroid Peroxidase Ab 2 IU/mL (<9) 06/03/21 10:02 Complement C3c 117 mg/dL (82-185 ) 06/03/21 10:02 Complement C4c 33 mg/dL (15-53) 06/03/21 10:02 CH50 Classical Pat hway >60 U/mL (31-60) H 06/03/21 10:02 RPR Nonreactive (Non reactive) 06/03/21 15:45 Hepatitis A IgM Ab Non-reactive (No nreactive) 06/03/21 15:45 Hep Bs Antigen Non-reactive (No nreactive) 06/03/21 15:45 Hep B Core IgM Ab Non-reactive (No nreactive) 06/03/21 15:45 Hepatitis C Antibo dy Non-reactive (No nreactive) 06/03/21 15:45 HIV 1&2 Ab & HIV 1 Ag Non-reactive (No n-Reactiv) 06/03/21 15:45 HIV 1&2 Antibody Non-reactive (No n-Reactiv) 06/03/21 15:45 SARS-CoV-2 Ag (Rap id) Negative (Negati ve) 06/15/21 09:16 Impressions Foot X-Ray 06/03/21 17:04 IMPRESSION: 1. No acute skeletal abnormality. Radiation Dose CTDIVOL = (mGy): DLP = (mGy-cm) Tibia/Fibula X-Ray 06/03/21 17:04 IMPRESSION: 1. No acute skeletal abnormality. Radiation Dose CTDIVOL = (mGy): DLP = (mGy-cm) Chest/Abdomen X-ray 06/08/21 14:26 IMPRESSION: No acute findings. Radiation Dose CTDIVOL = (mGy): DLP = (mGy-cm) ADDENDUM: 06/10/21 1335 Impression: Negative chest examination Low lung volumes Radiation Dose CTDIVOL = (mGy): DLP = (mGy-cm) Abdomen/Pelvis CT 06/09/21 06:49 IMPRESSION: 1. Abnormal small bowel loops in the RIGHT abdomen. Findings are highly suspicious for ischemic bowel disease or shock bowel. Twisting of the mesentery within the RIGHT abdomen may represent an internal hernia resulting in obstructive and ischemic pattern. Patient is at risk for perforation. 2. No free air is identified at this time. 3. Jrqke-wr-[id number] amount of ascites throughout the abdomen. 4. Small RIGHT pleural effusion. Notified Dr. Francisco 06/09/2021 2:05 PM. KUB X-Ray 06/12/21 07:33 IMPRESSION: Nonspecific imaging findings, which can be seen with early small-bowel obstruction or adynamic ileus. Radiation Dose CTDIVOL = (mGy): DLP = (mGy-cm) Microbiology 06/09/21 20:30 Blood Blood Culture - Final NO GROWTH AFTER 5 DAYS 06/09/21 20:25 Blood Blood Culture - Final NO GROWTH AFTER 5 DAYS 06/03/21 18:21 Blood Blood Culture - Final NO GROWTH AFTER 5 DAYS 06/03/21 18:22 Blood Blood Culture - Final Corynebacterium species Vitals: Last Vital Signs Temp 97.7 F 06/15/21 11:41 Pulse 94 06/15/21 11:41 Resp 16 06/15/21 11:41 BP 111/68 06/15/21 11:41 Pulse Ox 98 06/15/21 11:41 Discharge Plan Discharge Patient Disposition: Xfer SNF Condition: Stable Prescriptions: New famotidine 20 mg Tablet 20 mg PO BID 30 Days Qty: 60 RF: 0 amlodipine 10 mg Tablet 10 mg PO DAILY 30 Days Qty: 30 RF: 0 permethrin 5 % cream 1 applic topical .tusat 28 Days Qty: 240 RF: 0 ivermectin 3 mg tablet 18 mg PO Q7D 21 Days Qty: 18 RF: 0 doxycycline monohydrate 100 mg capsule 100 mg PO BID 7 Days Qty: 14 RF: 0 ciprofloxacin HCl 500 mg tablet 500 mg PO Q12H Qty: 14 RF: 0 Continued aspirin [Adult Aspirin Regimen] 81 mg tablet,delayed release (DR/EC) 81 mg PO DAILY RF: 0 Changed lisinopril 5 mg tablet 10 mg PO DAILY Qty: 30 RF: 5 furosemide 40 mg tablet 20 mg PO DAILY Qty: 30 RF: 5 Referrals: Chaparro Marvin MD [Primary Care Provider] - 7-10 days Discharge Diet: Advance as tolerated and Soft Mechanical Discharge Activity: Resume usual activity Patient Instructions: Opioid Safety Activity Restrictions/Additional Instructions: Ivermectin to be taken for overall 3 doses. Next dose on June 17 followed by June 24 followed by July 01. Permethrin to be applied twice weekly for next 4 weeks or till scabies is cleared off. Doxycycline and ciprofloxacin as oral antibiotics for next 7 days. Mechanical soft diet to be advanced gradually to regular diet within next 1 week. Discharge Attestations Time Spent in Discharge Care*: greater than 30 min Specific Discharge Activities: educating patient, discussing with pcp/other providers, discussing with caseworker intake/social workers/dc planners, documenting/other paperwork and evaluating patient/reviewing data Status at Discharge: Cognitive status at discharge: cognitively intact, Behavioral status at discharge: cooperative, Functional status at discharge: other assisted ambulation Overall status at discharge: patient is back to baseline Quality Metrics Clinical Quality Measures During this hospital stay, did patient experience: None Coding Level of Care Code Acute Chg FW DC note Diagnoses Abnormal CT scan, small bowel R93.3 Nausea and vomiting R11.14 Vomiting type: bilious vomiting Serbian scabies B86 Lower extremity cellulitis L03.115 Laterality: right Congestive heart failure due to cardiomyopathy I50.9; I42.9 Venous stasis dermatitis of both lower extremities I87.2 Lymphedema I89.0 Hypertension I10 Physical deconditioning R53.81 Protein calorie malnutrition E46
--- NOTE | 2021-06-15 15:54 | PC.NURSE ---
Called and gave report to Richar Burnham to SUSANA Michelle.
[2021-06-15 16:02] LABS: DNA AB (DS) CRITHIDIA,IFA NEGATIVE (NEGATIVE)
[2021-06-15 17:07] LABS: Glucose Point of Care 115 mg/dL (70-110)
[2021-06-15 18:16] VITALS: BP 111/68; PULSE 94; RESP 16; TEMP 36.5; O2SAT 98
== END 2021-06-15 18:17 | disposition skilled nursing facility (03) | DRG 580 ==
LOC: ER 17:04 → MEDSURG 18:33
PROVIDERS: Internal Medicine; Surgery; Admitting Provider Family Medicine; Emergency Provider Emergency Medicine; PCP Family Medicine Adult Medicine; Visit Provider Student in an Organized Health Care Education/Training Program
PROC: 0WJP4ZZ Inspection of Gastrointestinal Tract, Percutaneous Endoscopic Approach (ICD-10-PCS; CPT 49320; principal; 2021-06-09 16:00)
DX: B86 Scabies (principal); L03.115 Cellulitis of right lower limb; I50.42 Chronic combined systolic (congestive) and diastolic (congestive) heart failure; I42.9 Cardiomyopathy, unspecified; E46 Unspecified protein-calorie malnutrition; M25.562 Pain in left knee; M25.561 Pain in right knee; I11.0 Hypertensive heart disease with heart failure; I87.2 Venous insufficiency (chronic) (peripheral); D72.10 Eosinophilia, unspecified; Z68.30 Body mass index [BMI] 30.0-30.9, adult; R10.0 Acute abdomen; K59.89 Other specified functional intestinal disorders; Z79.82 Long term (current) use of aspirin
CPT/HCPCS: 36415; 36416; 73590; 73620; 74018; 74022; 74177; 80053; 80074; 80202; 82784; 82962; 83036; 83516; 83605; 83690; 83735; 84100; 84145; 84443; 85025; 85651; 86140; 86160; 86162; 86235; 86255; 86376; 86592; 87040; 87205; 87426; 87806; 88304; 96365; 96372; 96375; 97110; 97116; 97161; 97165; 97530; 97535; 99285; C9290; G0378; J0330; J1100; J1650; J1940; J2270; J2543; J2704; J2710; J3010; J3370; J3490; J7030; J7050; P9041; Q9967; S0030

== ENCOUNTER → 2022-04-19 09:57 | Outpatient (BNVA) | payer MEDICAID, SELFPAY | PROVIDERS: PCP Internal Medicine; Visit Provider Orthopaedic Surgery | DX: M75.01 Adhesive capsulitis of right shoulder (principal) | CPT/HCPCS: 73030; 99203 ==

== ENCOUNTER → 2022-07-19 15:02 | Outpatient (BNVA) | payer MEDICAID, SELFPAY | PROVIDERS: PCP Internal Medicine; Visit Provider Thoracic Surgery (Cardiothoracic Vascular Surgery) | DX: I87.2 Venous insufficiency (chronic) (peripheral) (principal); L25.9 Unspecified contact dermatitis, unspecified cause | CPT/HCPCS: 99212 ==

== ENCOUNTER → 2022-07-27 10:28 | Outpatient (BNVA) | payer MEDICAID, SELFPAY | PROVIDERS: PCP Internal Medicine; Visit Provider Thoracic Surgery (Cardiothoracic Vascular Surgery) | DX: I87.2 Venous insufficiency (chronic) (peripheral) (principal); R60.0 Localized edema | CPT/HCPCS: 99212 ==

== ENCOUNTER → 2022-08-18 13:45 | Outpatient (BNVA) | payer MEDICAID, SELFPAY | PROVIDERS: PCP Internal Medicine; Visit Provider Thoracic Surgery (Cardiothoracic Vascular Surgery) | DX: I87.2 Venous insufficiency (chronic) (peripheral) (principal) | CPT/HCPCS: 99212 ==

== ENCOUNTER → 2023-01-02 13:30 | Outpatient (BNVA) | payer MEDICAID, SELFPAY | PROVIDERS: PCP Internal Medicine; Visit Provider Nurse Practitioner Family | DX: L82.0 Inflamed seborrheic keratosis (principal); I87.2 Venous insufficiency (chronic) (peripheral); L57.8 Other skin changes due to chronic exposure to nonionizing radiation; L85.3 Xerosis cutis; L81.4 Other melanin hyperpigmentation; D22.5 Melanocytic nevi of trunk; Z71.89 Other specified counseling; L57.0 Actinic keratosis | CPT/HCPCS: 11102; 17000; 17003; 99214 ==

== ENCOUNTER → 2025-03-12 07:40 | Outpatient (BNVA) | payer MEDICAID, SELFPAY | PROVIDERS: PCP Internal Medicine; Visit Provider Dermatology | DX: I89.0 Lymphedema, not elsewhere classified (principal); I87.2 Venous insufficiency (chronic) (peripheral); R60.0 Localized edema; L73.8 Other specified follicular disorders | CPT/HCPCS: 99214 ==

== ENCOUNTER 2025-03-17 21:06 | Inpatient (IN) | payer MEDICAID, SELFPAY ==
--- OUTSIDE RECORDS SUMMARY | 2025-02-14 11:20 | XMS_ITS ---
Author Organization [facility] Address [address] [place] [address] Care Team Providers Care Supermarket Manager Name Role Phone Manfred Ordoñez Primary Care Provider REASON FOR VISIT senior living visit at [place], [place] Encounters Encounter Location Date Provider Diagnosis [facility] [address] [place] [address] 02/14/2025 Manfred Ordoñez Assessments Encounter Date Diagnosis (ICD Code) Assessment Notes Treatment Notes Treatment Clinical Notes Section Notes 02/14/2025 Other Medications wer e reviewed. I will continue without changes. Nursing staff is to contact me with any symptoms arising. Orders signed and documented with nursing staff. Vitals taken and recorded at [facility]. Plan Of Treatment Treatment Notes Assessment Notes Other Medications were rev iewed. I will continue without changes. Nursing staff is to contact me with any symptoms arising. Orders signed and documented with nursing staff. Vitals taken and recorded at [facility]. Next Appt Details Follow Up: 4 Weeks, Reason: History and Physical Notes * HPI (History of Present Illness) Category Sub-Category Detail Notes Category Not es : The patient is seen in the snf today for follow-up. Staff reports no new complaints. The review of systems and exam are unchanged from previous. Patient denies pain and is comfortable. Examination Category Sub-Category Detail Notes Category Not es General Examination GENERAL APPEARANCE: in no ac wrang[place] distress. Vital signs as documented. NECK/THYROID: no JVD HEART: notable for regular rhythym, normal sounds and absence of murmurs, rubs or gallops. LUNGS: Lungs clear ABDOMEN: unremarkable, no org anomegaly , no masses, or abdominal aortic enlargement. SKIN: warm and dry, withou t overt rashes. Progress Notes * Bg GUERRERO LDOB:1965 (59 yo M)Acc No.[id number]:02/14/2025 Patient: Bg Charles Provider: Román Ordoñez MD :1965 A ge:59 Y S ex:Male Date:02/14/2025 Address:[facility] [address] [id number] Subjective: * Chief Complaints: * N ursing home visit at [place], [place] * HPI: * :: The patient is seen in the snf today for follow-up. Staff reports no new complaints. The review of systems and exam are unchanged from previous. Patient denies pain and is comfortable. Objective: * Examination: G eneral Examination: GENERAL APPEARANCE: i n no acute distress. Vital signs as documented.. NECK/THYROID: n o JVD. SKIN: w arm and dry, without overt rashes.. HEART: n otable for regular rhythym, normal sounds and absence of murmurs, rubs or gallops. LUNGS: L ungs clear. ABDOMEN: u nremarkable, no organomegaly , no masses, or abdominal aortic enlargement.. Plan: * Treatment: * Procedure Codes: 9 9309 [facility] CARE SUBSEQ * Follow Up: 4 Weeks Billing Information: * Procedure Codes: 51505 SNF CARE SUBSEQ. * Electronic signature of Robi Ordoñez MD on 03/17/2025 at 09:17 PM CDT Sign off status: Pending * Provider: Román Ordoñez MD Date: 02/14/2025 Generated for Bao moran/Anuj/Kelsiitting on: 03/17/2025 09:17 PM CDT
--- OUTSIDE RECORDS SUMMARY | 2025-02-14 11:20 | XMS_ITS ---
Author Organization [facility] Address [address] [place] [address] Care Team Providers Care Magnetic Resonance Imaging Coordinator Name Role Phone Manfred Ordoñez Primary Care Provider [phone] REASON FOR VISIT custodial visit at [place], [place] Encounters Encounter Location Date Provider Diagnosis [facility] [address] [place] [address] 02/14/2025 Manfred Ordoñez Assessments Encounter Date Diagnosis (ICD Code) Assessment Notes Treatment Notes Treatment Clinical Notes Section Notes 02/14/2025 Other Medications wer e reviewed. I will continue without changes. Nursing staff is to contact me with any symptoms arising. Orders signed and documented with nursing staff. Vitals taken and recorded at [facility]. Plan Of Treatment Treatment Notes Assessment Notes Other Medications were rev iewed. I will continue without changes. Nursing staff is to contact me with any symptoms arising. Orders signed and documented with nursing staff. Vitals taken and recorded at [facility]. Next Appt Details Follow Up: 4 Weeks, Reason: History and Physical Notes * HPI (History of Present Illness) Category Sub-Category Detail Notes Category Not es : The [facility] is [facility] in the [facility] today for follow-up. Staff reports no new complaints. The review of systems and exam are unchanged from previous. Patient denies pain and is comfortable. Examination Category Sub-Category Detail Notes Category Not es General Examination GENERAL APPEARANCE: in no ac [place] distress. Vital signs as documented. NECK/THYROID: no JVD HEART: notable for regular rhythym, normal sounds and absence of murmurs, rubs or gallops. LUNGS: Lungs clear ABDOMEN: unremarkable, no org anomegaly , no masses, or abdominal aortic enlargement. SKIN: warm and dry, withou t overt rashes. Progress Notes * Bg GUERRERO LDOB:1965 (59 yo M)Acc No.[id number]:02/14/2025 Patient: Bg Charles Provider: Román Ordoñez MD :1965 A ge:59 Y S ex:Male Date:02/14/2025 Address:[facility] [address] [facility] [address].[id number] Subjective: * Chief Complaints: * N ursing home visit at [place], [place] * HPI: * :: The patient is seen in the [facility] today for follow-up. Staff reports no new [...] * Treatment: * Procedure Codes: [address] [facility] CARE SUBSEQ * Follow Up: 4 Weeks Billing Information: * Procedure Codes: 42430 SNF CARE SUBSEQ. * Electronic signature of Robi Ordoñez MD on 03/18/2025 at 04:36 AM CDT Sign off status: Pending * Provider: Román Ordoñez MD Date: 02/14/2025 Generated for Bao moran/Anuj/Kelsiitting on: 03/18/2025 04:36 AM CDT
--- OUTSIDE RECORDS SUMMARY | 2025-03-07 11:20 | XMS_ITS ---
Author Organization [facility] Address [address] [place] [address] Care Team Providers Care Crystal Evaluator Name Role Phone Manfred Ordoñez Primary Care Provider REASON FOR VISIT skilled nursing visit at [place], [place] Encounters Encounter Location Date Provider Diagnosis [facility] [address] [place] [address] 03/07/2025 Manfred Ordoñez Assessments Encounter Date Diagnosis (ICD Code) Assessment Notes Treatment Notes Treatment Clinical Notes Section Notes 03/07/2025 Other Medications wer e reviewed. I will continue without changes. Nursing staff is to contact me with any symptoms arising. Orders signed and documented with nursing staff. Vitals taken and recorded at [facility]. Plan Of Treatment Treatment Notes Assessment Notes Other Medications were rev iewed. I will continue without changes. Nursing staff is to contact me with any symptoms arising. Orders signed and documented with nursing staff. Vitals taken and recorded at [facility]. Next Appt Details Follow Up: 4 Weeks, Reason: History and Physical Notes * HPI (History of Present Illness) Category Sub-Category Detail Notes Category Not es : The patient is seen in the assisted today for follow-up. Staff reports no new complaints. The review of systems and exam are unchanged from previous. Patient denies pain and is comfortable. Examination Category Sub-Category Detail Notes Category Not es General Examination GENERAL APPEARANCE: in no ac te-moak distress. Vital signs as documented. NECK/THYROID: no JVD HEART: notable for regular rhythym, normal sounds and absence of murmurs, rubs or gallops. LUNGS: Lungs clear ABDOMEN: unremarkable, no org anomegaly , no masses, or abdominal aortic enlargement. SKIN: warm and dry, withou t overt rashes. Progress Notes * Bg GUERRERO LDOB:1965 (59 yo M)Acc No.[id number]:03/07/2025 Patient: Bg Charles Provider: Román Ordoñez MD :1965 A ge:59 Y S ex:Male Date:03/07/2025 Address:[facility] [address] [id number] Subjective: * Chief Complaints: * N ursing home visit at [place], [place] * HPI: * :: The patient is seen in the assisted today for follow-up. Staff reports no new [...] * Treatment: * Procedure Codes: 9 9309 [facility] CARE SUBSEQ * Follow Up: 4 Weeks Billing Information: * Procedure Codes: 80138 SNF CARE SUBSEQ. * Electronic signature of Robi Ordoñez MD on 03/17/2025 at 09:17 PM CDT Sign off status: Pending * Provider: Román Ordoñez MD Date: 03/07/2025 Generated for Bao moran/Anuj/Kelsiitting on: 03/17/2025 09:17 PM CDT
--- OUTSIDE RECORDS SUMMARY | 2025-03-07 11:20 | XMS_ITS ---
Author Organization [facility] Address [address] [place] [address] Care Team Providers Care Member Of Congress Name Role Phone Manfred Ordoñez Primary Care Provider [phone] REASON FOR VISIT [facility]DC visit at [place], [place] Encounters Encounter Location Date Provider Diagnosis [facility] [address] [place] [address] 03/07/2025 Manfred Ordoñez Assessments Encounter Date Diagnosis (ICD Code) Assessment Notes Treatment Notes Treatment Clinical Notes Section Notes 03/07/2025 Other Medications wer e reviewed. I will continue without changes. Nursing staff is to contact me with any symptoms arising. Orders signed and documented with nursing staff. Vitals taken and recorded at [facility]. Plan Of Treatment Treatment Notes Assessment Notes Other Medications were rev iewed. I will continue without changes. Nursing staff is to contact me with any symptoms arising. Orders signed and documented with nursing staff. Vitals taken and recorded at [facility]. Next Appt Details Follow Up: 4 Weeks, [...] General Examination GENERAL APPEARANCE: in no ac augustine distress. Vital signs as documented. NECK/THYROID: no JVD HEART: notable for regular rhythym, normal sounds and absence of murmurs, rubs or gallops. LUNGS: Lungs clear ABDOMEN: unremarkable, no org anomegaly , no masses, or abdominal aortic enlargement. SKIN: warm and dry, withou t overt rashes. Progress Notes * Bg GUERRERO LDOB:1965 (59 yo M)Acc No.[id number]:03/07/2025 Patient: Bg Charles Provider: Román Ordoñez MD :1965 A ge:59 Y S ex:Male Date:03/07/2025 Address:[facility] [address] [id number] Subjective: * Chief Complaints: * N ursing home visit at [place], [place] * HPI: * :: The patient [...] * Treatment: * Procedure Codes: 9 9309 [facility] CARE SUBSEQ * Follow Up: 4 Weeks Billing Information: * Procedure Codes: 32242 SNF CARE SUBSEQ. * Electronic signature of Robi Ordoñez MD on 03/18/2025 at 04:35 AM CDT Sign off status: Pending * Provider: Román Ordoñez MD Date: 03/07/2025 Generated for Bao moran/Anuj/Kelsiitting on: 03/18/2025 04:35 AM CDT
[2025-03-17 21:09] VITALS: BP 169/89; PULSE 89; RESP 17; TEMP 36.6; O2SAT 97; BMI 36.6
--- OUTSIDE RECORDS SUMMARY | 2025-03-17 21:17 | XMS_ITS | Patient Health Record ---
Author Organization [facility] Address [address] [place] [address] Care Team Providers Care Campus Receptionist Name Role Phone Manfred Ordoñez Primary Care Provider Allergies No Known Allergies Reason For Referral No Information Medications Medication SIG (Take, Route, Frequency, Duration) Notes Start Date End Date Status Furosemide 40 mg Tablet TAKE ONE TABLET BY MOUTH EVERY DAY; Duration: 30 Active Aspirin 81 81 MG Tablet Delayed Release 1 tablet Orally Once a day Active Famotidine 20 mg Tablet TAKE ONE TABLET BY MOUTH TWICE DAILY; Duration: 30 Active Lisinopril 10 mg Tablet TAKE ONE TABLET BY MOUTH EVERY DAY; Duration: 30 Active amLODIPine Besylate 10 mg Tablet TAKE ONE TABLET BY MOUTH EVERY DAY; Duration: 30 Active Pregabalin 100 MG Capsule 1 capsule Oral ly Twice a day; Duration: 30 days 11/12/2024 05/11/2025 Active Sarna Sensitive 1 % Lotion APPLY daily T O bilateral upper extremities; Duration: 20 Active Triamcinolone Acetonide 0.1 % Ointment apply TO bilateral lower extremities where there are no wounds DAILY after SHOWER; Duration: 30 Active Social History Social History Household: Social Info Question Answer Notes Household [facility] Marital status: single Problems Problem Type SNOMED Code ICD Code Onset Dates Problem Status W/U Status Risk Notes Problem Essential hypertension (64660887) Essential (primary) hypertension (I10) Active confirmed Problem Peripheral venous insufficiency (82708708) Venous insufficiency (chronic) (peripheral) (I87.2) Active confirmed Problem Lymphedema (696900210) Lymphedema, not elsewhere classified (I89.0) Active confirmed Problem Cellulitis of right lower limb (20171827727829068) Cellulitis of right lower limb (L03.115) Active confirmed Problem Pain of knee region (finding) (2719373540) Pain in unspecified knee (M25.569) Active confirmed Problem Malaise (683634160) Other malais e (R53.81) Active confirmed Problem Imaging of gastrointestinal tract abnormal (503080321) Abnormal findings on diagnostic imaging of other parts of digestive tract (R93.3) Active confirmed Problem Essential hypertension (98115284) Essential hypertension (I10) Active confirmed Problem Cardiomyopathy (60748456) Cardiomyopathy, unspecified type (I42.9) Active confirmed Problem Bilious vomiting (02362953) Bilious vomiting, unspecified whether nausea present (R11.14) Active confirmed Encounters Encounter Location Date Provider Diagnosis [facility] [address] [place] [address] 02/14/2025 [facility] [address] [place] [address] 03/07/2025 [facility] [address] [place] [address] 04/12/2024 Christopher Ordoñez Lymphedema, not elsewhere classified I89.0 ; Pain in unspecified knee M25.569 and Other malaise R53.81 [facility] [address] [place] [address] 05/10/2024 Christopher Ordoñez Lymphedema, not elsewhere classified I89.0 ; Essential hypertension I10 and Cardiomyopathy, unspecified type I42.9 [facility] [address] [place] [address] 06/07/2024 Christopher Ordoñez Lymphedema, not elsewhere classified I89.0 and Essential hypertension I10 [facility] [address] [place] [address] 07/12/2024 Christopher Ordoñez Lymphedema, not elsewhere classified I89.0 and Essential hypertension I10 [facility] [address] [place] [address] 08/23/2024 Christopher Ordoñez Lymphedema, not elsewhere classified I89.0 and Essential hypertension I10 [facility] [address] [place] [address] 09/13/2024 Christopher Ordoñez Lymphedema, not elsewhere classified I89.0 ; Pain in unspecified knee M25.569 ; Other malaise R53.81 and Essential hypertension I10 [facility] [address] [place] [address] 10/11/2024 Manfred Ordoñez Lymphedema, not elsewhere classified I89.0 ; Pain in unspecified knee M25.569 and Essential hypertension I10 [facility] [address] [place] [address] 11/08/2024 Manfred Ordoñez Lymphedema, not elsewhere classified I89.0 ; Cardiomyopathy, unspecified type I42.9 and Essential (primary) hypertension I10 [facility] [address] [place] [address] 12/06/2024 Manfred Ordoñez Lymphedema, not elsewhere classified I89.0 and Pain in unspecified knee M25.569 [facility] [address] [place] [address] 01/10/2025 Manfred Ordoñez Lymphedema, not elsewhere classified I89.0 ; Pain in unspecified knee M25.569 and Other malaise R53.81 [facility] [address] [facility] [address] [place] [address] 05/13/2024 [facility] [address] [facility] [address] [place] [address] 11/11/2024 [facility] [address] [facility] [address] [facility] [address] 11/11/2024 [facility] Ordoñez [facility] [address] [facility] [address] [place] [address] 11/11/2024 [facility] Ordo[facility]ez [facility] [address] [facility] [address] [place] [address] 02/05/2025 Manfred Ordoñez Assessments Encounter Date Diagnosis (ICD Code) Assessment Notes Treatment Notes Treatment Clinical Notes Section Notes 04/12/2024 Lymphedema, not elsewhere classified (ICD-10 - I89.0) 05/10/2024 Lymphedema, not elsewhere classified (ICD-10 - I89.0) 07/12/2024 Lymphedema, not elsewhere classified (ICD-10 - I89.0) 07/12/2024 Essential hypertension (ICD-10 - I10) 08/23/2024 Lymphedema, not elsewhere classified (ICD-10 - I89.0) 09/13/2024 Lymphedema, not elsewhere classified (ICD-10 - I89.0) 06/07/2024 Lymphedema, not elsewhere classified (ICD-10 - I89.0) 10/11/2024 Lymphedema, not elsewhere classified (ICD-10 - I89.0) Medications were reviewed. I will continue without changes. Nursing staff is to contact me with any symptoms arising. Orders signed and documented with nursing staff. Vitals taken and recorded at [facility]. 11/08/2024 Lymphedema, not elsewhere classified (ICD-10 - I89.0) Medications were reviewed. I will continue without changes. Nursing staff is to contact me with any symptoms arising. Orders signed and documented with nursing staff. Vitals taken and recorded at [facility]. 12/06/2024 Lymphedema, not elsewhere classified (ICD-10 - I89.0) Medications were reviewed. I will continue without changes. Nursing staff is to contact me with any symptoms arising. Orders signed and documented with nursing staff. Vitals taken and recorded at [facility]. 01/10/2025 Lymphedema, not elsewhere classified (ICD-10 - I89.0) Medications were reviewed. I will continue without changes. Nursing staff is to contact me with any symptoms arising. Orders signed and documented with nursing staff. Vitals taken and recorded at [facility]. 01/10/2025 Pain in unspecified knee (ICD-10 - M25.569) 12/06/2024 Pain in unspecified knee (ICD-10 - M25.569) 11/08/2024 Cardiomyopathy, unspecified type (ICD-10 - I42.9) 10/11/2024 Pain in unspecified knee (ICD-10 - M25.569) 06/07/2024 Essential hypertension (ICD-10 - I10) 09/13/2024 Pain in unspecified knee (ICD-10 - M25.569) 08/23/2024 Essential hypertension (ICD-10 - I10) 05/10/2024 Essential hypertension (ICD-10 - I10) 04/12/2024 Pain in unspecified knee (ICD-10 - M25.569) 04/12/2024 Other malaise (ICD-10 - R53.81) 05/10/2024 Cardiomyopathy, unspecified type (ICD-10 - I42.9) 09/13/2024 Other malaise (ICD-10 - R53.81) 10/11/2024 Essential hypertension (ICD-10 - I10) 11/08/2024 Essential (primary) hypertension (ICD-10 - I10) 01/10/2025 Other malaise (ICD-10 - R53.81) 09/13/2024 Essential hypertension (ICD-10 - I10) 02/14/2025 Other Medications were reviewed. I will continue without changes. Nursing staff is to contact me with any symptoms arising. Orders signed and documented with nursing staff. Vitals taken and recorded at [facility]. 03/07/2025 Other Medications were reviewed. I will continue without changes. Nursing staff is to contact me with any symptoms arising. Orders signed and documented with nursing staff. Vitals taken and recorded at [facility]. 04/12/2024 Other Medications reviewed, orders signed and documented with nursing staff. Vitals taken and recorded at [facility]. 05/10/2024 Other Medications reviewed, orders signed and documented with nursing staff. Vitals taken and recorded at [facility]. 06/07/2024 Other Medications reviewed, orders signed and documented with nursing staff. Vitals taken and recorded at [facility]. 07/12/2024 Other Medications reviewed, orders signed and documented with nursing staff. Vitals taken and recorded at [facility]. 08/23/2024 Other Medications reviewed, orders signed and documented with nursing staff. Vitals taken and recorded at [facility]. 09/13/2024 Other Medications reviewed, orders signed and documented with nursing staff. Vitals taken and recorded at [facility]. Plan Of Treatment No Information Insurance Providers Payer Name Payer Address Payer Phone Subscriber Number Group Number Insured Name Patient Relationship to Insured Coverage Start Date Coverage End Date [place] Medicaid [address] [place] [address] [id number] [employer], Bg Self - patient is the insured Medical (General) History Medical History History ICD Code Scabies B86 Dermatitis, unspecified L30.9 Abnormal findings on diagnostic imaging of digestive system R93.3 Bilious vomiting R11.14 Cellulitis of right lower limb L03.115 Cardiomyopathy, unspecified I42.9 Venous insufficiency (chronic) (peripher al) I87.2 Lymphedema, not elsewhere classified I89 .0 Other malaise R53.81 Unspecified protein-calorie malnutrition E46 Acute on chronic diastolic (congestive) heart failure I50.33 Essential hypertension I10 Pain in unspecified knee M25.569 cellulitis of right lower limb
--- NOTE | 2025-03-17 21:53 | W.ED.EXTPRO ---
HPI - Extremity Problem General: Chief complaint: Extremity Problem,Nontraumatic Stated complaint: r leg wound Time Seen by Provider: 03/17/25 21:09 History of Present Illness: Patient is a 59-year-old male with chronic debility, chronically lives at the senior living, HTN, depression, presents to the emergency room with maggots on his bilateral leg wounds noted by senior living. Patient stated he used to go to wound care, and now the senior living dresses his leg wraps. He had leg wraps earlier today, that were removed, and nursing noted maggots just prior to arrival. He has not had a fever or chills. He does have redness to bilateral lower extremities, and decubitus is present. Associated symptoms: Reports rash; Deny chest pain or fever(s) Related Data Home Medications ?Medication ?Instructions ?Recorded ?Confirmed aspirin 81 mg tablet,delayed 81 mg PO DAILY 05/14/21 12/25/24 release (Adult Aspirin Regimen) amlodipine 10 mg tablet 10 mg PO DAILY 10/21/21 12/25/24 acetaminophen 325 mg tablet 650 mg PO QID PRN 06/07/23 12/25/24 (Tylenol) famotidine 20 mg tablet 20 mg PO BID 06/07/23 12/25/24 magnesium hydroxide 400 mg/5 mL 5 ml PO DAILY PRN 06/07/23 12/25/24 oral suspension (Milk of Magnesia) escitalopram oxalate 10 mg tablet 10 mg PO DAILY 12/25/24 12/25/24 pregabalin 100 mg capsule (Lyrica) 100 mg PO BID 12/25/24 12/25/24 Previous Rx's ?Medication ?Instructions ?Recorded lisinopril 5 mg tablet 10 mg (2 x 5 mg) PO DAILY #30 tabs 06/15/21 furosemide 40 mg tablet 40 mg PO DAILY edema #30 tabs 02/01/22 Allergies Allergy/AdvReac Type Severity Reaction Status Date / Time No Known Allergies Allergy Verified 12/25/24 12:03 Review of Systems Const: Denies: fever(s) or chills Eyes: Denies: change in vision or blurry vision ENMT: Denies: throat pain or dry mouth Card: Denies: chest pain or palpitations Resp: Denies: dyspnea : Denies: flank pain or difficulty urinating Musc: Reports: extremity pain, extremity swelling, joint pain, joint swelling, joint redness, joint warmth and joint stiffness; Denies: neck pain or back pain Skin/Breast: Reports: rash, pruritus and skin tenderness Neuro: Denies: headache(s) or numbness in extremities Psych: Denies: anxiety or depression PFSH ED PFSH: Medical History (Updated 03/17/25 @ 23:40 by RODRIGO Padgett) Protein calorie malnutrition Venous stasis dermatitis of both lower extremities Acute leg pain Ulcer Bilateral knee pain Malnutrition Hypertension Obesity Lymphedema Congestive 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 systolic and diastolic No pertinent family history Complicated wound infection Surgical History No pertinent past surgical history Social History Smoking and tobacco/nicotine status: never used tobacco/nicotine Alcohol intake: never Substance/Drug Use: never Housing: Half-Way Physical Exam Const: COMMON NORMALS: no acute distress, average body habitus, patient oriented x3, no limitations, healthy appearing, alert and well nourished GENERAL APPEARANCE: cooperative HENMT: COMMON NORMALS: normocephalic, atraumatic, hearing grossly normal bilaterally and external ears normal HEAD & SCALP: normocephalic and atraumatic EXTERNAL EAR: Yes external ears normal Eye: COMMON NORMALS: Equal, round and reactive pupils present, EOMs intact bilaterally and conjunctivae normal CONJUNCTIVA: Yes conjunctivae normal PUPIL: Yes Equal, round and reactive pupils present Neck/C-Spine: COMMON NORMALS: full ROM, no lymphadenopathy and supple Lymph: LYMPHATIC: no lymphadenopathy noted Chest: COMMONS NORMALS: normal inspection of the chest and normal palpation of entire chest wall Resp: COMMON NORMALS: normal respiratory effort, No retractions and clear to auscultation bilaterally AUSCULTATION: clear to auscultation bilaterally Cardio: COMMON NORMALS: regular rate and regular rhythm RATE: regular rate RHYTHM: regular rhythm GI: COMMON NORMALS: Normal to inspection, nondistended, normoactive bowel sounds present and Soft to palpation PALPATION: Yes Soft to palpation : COMMON NORMALS: Yes no CVA tenderness BLADDER/KIDNEY EXAM: Yes no CVA tenderness MALE GROIN/PERINEUM EXAM: Yes erythema (perineum) and No inguinal lymphadenopathy PENIS: normal penis and circumcised SCROTUM: Yes testes descended bilaterally and Yes erythematous (bilat testes) Back/Pelvis: COMMON NORMALS: no CVA tenderness PELVIS: Yes buttock abnormal and Yes Other pelvic findings (breakdown superficial) COCCYX: Other pelvic findings (breakdown superficial) Extremity: COMMON NORMALS: full ROM and capillary refill normal GENERAL: Yes edema RIGHT LOWER EXTREMITY: Yes upper leg Right upper leg: Yes inspection (redness) and Yes lower leg Neuro: COMMON NORMALS: patient oriented x3 SENSORIUM/ORIENTATION: Yes alert Skin: NARRATIVE SKIN EXAM: x4- 1.5 cm maggots, live found on lower extremity leg wounds that have fibrous changes bilaterally with knees descending, and redness throughout, worsening redness, malodorous smell. c/n discern which side the maggots came from. Patient was rolled and viewed without clothes. Multiple fissures GENERAL SKIN EXAM: erythema, Excoriation and scars Course Consultations: Consultation #1: D/w hospitalist/Dr. Rosas, accepted admission Vital Signs: Vital signs: Vital Signs Temperature 97.8 F 03/17/25 21:09 Pulse Rate 89 03/17/25 21:09 Respiratory Rate 17 03/17/25 21:09 Blood Pressure 169/89 03/17/25 21:09 Pulse Oximetry 97 03/17/25 21:09 Oxygen Delivery Me thod Room Air 03/17/25 21:09 MDM - Extremity (Nontraumatic) Medical Decision Making Patient is a 59-year-old gentleman that came from the [facility], has had fibrous lower extremities for some time, however increasing redness over unknown amount of time, and maggots noted on both sides of lower extremities. Is difficult to tell where this comes from, since there are fissures on both sides. I suspect wound care will need to debridement, patient needs antibiotics for his acute cellulitis, Marta control, and ongoing care acutely. I am unsure if he will need surgical debridement at this time as discussed with the hospitalist, however wound care initially. Medical Records I reviewed the patient's medical records. Lab Data I reviewed the patient's lab results. 03/17/25 22:05 03/17/25 22:05 Laboratory Results WBC 8.97 10^3/uL (3.29-11.43) 03/17/25 22:05 RBC 4.58 10^6/uL (3.85-5.65) 03/17/25 22:05 Hgb 13.70 g/dL (11.27-16.99) 03/17/25 22:05 Hct 43.6 % (37-53) 03/17/25 22:05 MCV 95.2 fl (82-101) 03/17/25 22:05 MCH 29.9 pg (27-33) 03/17/25 22: MCHC 31.4 g/dL (30-55) 03/17/25 22:05 RDW 13.9 % (12.1-15.1) 03/17/25 22:05 Plt Count 389 10^3/cmm (157-399) 03/17/25 22:05 MPV 8.8 fL (7.4-10.4) 03/17/25 22:05 Neut % (Auto) 70.4 % 03/17/25 22:05 Lymph % (Auto) 15.6 % 03/17/25 22:05 [place] % (Auto) 9.1 % 03/17/25 22:05 Eos % (Auto) 3.8 % 03/17/25 22:05 Baso % (Auto) 0.7 % 03/17/25 22:05 Neut # (Auto) 6.31 10^3/uL (1.8-7.7) 03/17/25 22:05 Lymph # (Auto) 1.4 10^3/uL (0.8-4.8) 03/17/25 22:05 [place] # (Auto) 0.8 10^3/uL (0.2-0.9) 03/17/25 22:05 Eos # (Auto) 0.3 10^3/uL (0.0-0.8) 03/17/25 22:05 Baso # (Auto) 0.1 10^3/uL (0.0-0.1) 03/17/25 22:05 Nucleated RBC % (auto) 0 % 03/17/25 22:05 Nucleated RBCs # 0.0 /100WBC 03/17/25 22:05 Sodium 138 mmol/L (136-145) 03/17/25 22:05 Potassium 4.1 mmol/L (3.5-5.1) 03/17/25 22:05 Chloride 101 mmol/L (98-107) 03/17/25 22:05 Carbon Dioxide 29 mmol/L (22-29) 03/17/25 22:05 Anion Gap 12.1 (5-19) 03/17/25 22:05 BUN 18 mg/dL (6-20) 03/17/25 22:05 Creatinine 0.8 mg/dL (0.7-1.2) 03/17/25 22:05 GFR Calculation 98.9 mL/min (90-130) 03/17/25 22:05 Glucose 130 mg/dL (65-115) H 03/17/25 22:05 Calculated Osmolality 290 mOsm/kg (285-295) 03/17/25 22:05 Lactic Acid 1.4 mmol/L (0.5-2.2) 03/17/25 22:05 Calcium 8.7 mg/dL (8.5-10.5) 03/17/25 22:05 Total Bilirubin 0.4 mg/dL (0.15-1.2) 03/17/25 22:05 AST 12 U/L (0-40) 03/17/25 22:05 ALT 9 U/L (0-41) 03/17/25 22:05 Alkaline Phosphatase 100 U/L (40-130) 03/17/25 22:05 C-Reactive Protein 27.3 mg/L (0.0-4.9) H 03/17/25 22:05 Total Protein 8.2 g/dL (6.6-8.7) 03/17/25 22:05 Albumin 3.6 g/dL (3.5-5.2) 03/17/25 22:05 Globulin 4.6 g/dL (1.3-4.6) 03/17/25 22:05 No radiology studies performed this visit Discharge Plan Discharge Patient Disposition: Admitted As Inpatient Clinical Impression: Cellulitis, Infestation by fly larvae, Decubitus ulcer of coccyx, stage 2, Marta rash of groin Condition: Stable Discharge Diet: Low Salt Discharge Activity: Limit activity as instructed Coding Level of Care Code ED Chlorine Cells Operator for She Balderas
[2025-03-17 22:18] LABS: Hematocrit 43.6 % (37-53); Hemoglobin 13.70 g/dL (11.27-16.99); Mean Corpuscular HGB Conc 31.4 g/dL (30-55); Mean Corpuscular Hemoglobin 29.9 pg (27-33); Mean Corpuscular Volume 95.2 fl (82-101); Nucleated Red Blood Cells % 0 %; Platelet Count 389 10^3/cmm (157-399); Red Blood Count 4.58 10^6/uL (3.85-5.65); White Blood Count 8.97 10^3/uL (3.29-11.43)
[2025-03-17] MEDS: cefepime 1,000 mg SDV 2000 MG IVP (22:31)
[2025-03-17] MEDS: vancomycin 1,750 MG/350 ML PIGGYBACK 175 MG IV (22:34)
[2025-03-17 22:40] LABS: Alanine Aminotransferase 9 U/L (0-41); Albumin Level 3.6 g/dL (3.5-5.2); Alkaline Phosphatase 100 U/L (40-130); Anion Gap 12.1 (5-19); Aspartate Amino Transferase 12 U/L (0-40); Blood Urea Nitrogen 18 mg/dL (6-20); Calcium 8.7 mg/dL (8.5-10.5); Carbon Dioxide 29 mmol/L (22-29); Chloride 101 mmol/L (98-107); Creatinine Clr Calc Pharmacy 126.6559; Globulin 4.6 g/dL (1.3-4.6); Glucose 130 mg/dL (65-115); Osmolality Calculated 290 mOsm/kg (285-295); Potassium 4.1 mmol/L (3.5-5.1); Sodium 138 mmol/L (136-145); Total Protein 8.2 g/dL (6.6-8.7)
[2025-03-17 22:41] LABS: Lactic Sepsis W/Reflex 1.4 mmol/L (0.5-2.2)
[2025-03-17 22:43] VITALS: BP 149/68; PULSE 76; RESP 16; O2SAT 96
[2025-03-18] VITALS (11 sets, daily range): BP systolic 125–179; BP diastolic 63–96; PULSE 70–91; RESP 16–18; TEMP 36.3–36.7; O2SAT 91–99; BMI 36.6
--- NOTE | 2025-03-18 00:26 | PM.HP ---
Providers/Chief Complaint Primary Care Provider: Gutierrez Ordoñez MD Chief Complaint: r leg wound History of Present Illness Bg Mccauley is a 59 year old male with a past medical history of crusted scabies, lymphedema, peripheral vascular disease, chronic venous stasis dermatitis, obesity, who presents to [facility] due to bilateral extremity crusting, multiple skin lesions, foot ulcers, maggots. Currently patient is alert oriented x 3, following all commands, denies any pain in his lower extremities, denies any fevers, no chills, no cough. According to ER provider, patient had 2 maggots found on his wounds, bilateral lower extremities which were removed, he has multiple open wounds bilateral extremities, has a stage II decubitus ulcer, he also has crusting of his bilateral lower extremities. Denies any fevers, no chills, no cough, currently at [facility] Medications/Allergies Home Medications ?Medication ?Instructions ?Recorded ?Confirmed ?Last Taken ?Type aspirin 81 mg tablet,delayed 81 mg PO DAILY 05/14/21 12/25/24 Unknown History release (Adult Aspirin Regimen) lisinopril 5 mg tablet 10 mg (2 x 5 mg) PO DAILY #30 tabs 06/15/21 12/25/24 Unknown Rx amlodipine 10 mg tablet 10 mg PO DAILY 10/21/21 12/25/24 Unknown History furosemide 40 mg tablet 40 mg PO DAILY edema #30 tabs 02/01/22 12/25/24 Unknown Rx acetaminophen 325 mg tablet 650 mg PO QID PRN 06/07/23 12/25/24 Unknown History (Tylenol) famotidine 20 mg tablet 20 mg PO BID 06/07/23 12/25/24 Unknown History magnesium hydroxide 400 mg/5 mL 5 ml PO DAILY PRN 06/07/23 12/25/24 Unknown History oral suspension (Milk of Magnesia) escitalopram oxalate 10 mg tablet 10 mg PO DAILY 12/25/24 12/25/24 Unknown History pregabalin 100 mg capsule (Lyrica) 100 mg PO BID 12/25/24 12/25/24 Unknown History Allergies Allergy/AdvReac Type Severity Reaction Status Date / Time No Known Allergies Allergy Verified 12/25/24 12:03 PFSH Acute PFSH: Medical History (Updated 03/17/25 @ 23:40 by RODRIGO Padgett) Protein calorie malnutrition Venous stasis dermatitis of both lower extremities Acute leg pain Ulcer Bilateral knee pain Malnutrition Hypertension Obesity Lymphedema Congestive 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 systolic and diastolic No pertinent family history Complicated wound infection Surgical History No pertinent past surgical history Social History Smoking and tobacco/nicotine status: never used tobacco/nicotine Alcohol intake: never Substance/Drug Use: never Housing: Longterm Vitals/I&O/Wt Last Vital Signs Temp 97.8 F 03/17/25 21:09 Pulse 89 03/17/25 21:09 Resp 17 03/17/25 21:09 BP 169/89 03/17/25 21:09 Pulse Ox 97 03/17/25 21:09 O2 Del Method Room Air 03/17/25 21:09 Weight last 48 hrs Weight 115.666 kg Physical Exam Const: COMMON NORMALS: no acute distress and patient oriented x3 HENMT: COMMON NORMALS: normocephalic HEAD & SCALP: normocephalic Resp: COMMON NORMALS: normal respiratory effort, No retractions, No use of accessory muscles and clear to auscultation bilaterally AUSCULTATION: clear to auscultation bilaterally Cardio: COMMON NORMALS: regular rate, regular rhythm, S1 normal heart sound present and S2 normal heart sound present RATE: regular rate RHYTHM: regular rhythm HEART SOUNDS: S1 normal heart sound present and S2 normal heart sound present GI: COMMON NORMALS: Normal to inspection, nondistended, normoactive bowel sounds present, Soft to palpation and non-tender Extremity: COMMON NORMALS: no calf tenderness and no pedal edema Neuro: COMMON NORMALS: patient oriented x3 Psych: COMMON NORMALS: mental status grossly normal Skin: NARRATIVE SKIN EXAM: Bilateral lower extremities, multiple wounds, largest measuring 1.1 cm, with erythema Multiple areas of crusting bilateral lower extremities Stage II decubitus ulcer Data 03/17/25 22:05 03/17/25 22:05 Micro: Microbiology 03/17/25 22:05 Blood Culture - Preliminary Blood SPECIMEN COLLECTED 03/17/25 21:09 Blood Culture - Preliminary Blood SPECIMEN COLLECTED A&P Assessment and plan 1. Chronic venous stasis dermatitis of both lower extremities: 2. PVD (peripheral vascular disease): 3. Cellulitis: 4. Infestation by fly larvae: 5. Decubitus ulcer of coccyx, stage 2: 6. Lymphedema: Plan: Cellulitis of bilateral extremities - Multiple areas of open excoriation, foul-smelling, - Found with maggots - Does have crusting/areas of bilateral extremities, with history of Baham[place] scabies, followed by Dr. Velasquez - I looked at wound cares note and picture there seems to be a dramatic change between 12/05/2023 and 12/25/2024, I can see significant development of crusting, but it has been over a year since he was seen by wound care - Could this be a reoccurrence of his crusting scabies in addition to as above Plan - Will place in isolation - Order permethrin - Will have to call pharmacy in the morning to see about ordering ivermectin - Vancomycin - Cefepime - Will have to consult general surgery in the morning to see about debridement - Stage II decubitus ulcers continue repositioning - Wound care - Full code - Lovenox for DVT prophylaxis PDMP PDMP Reviewed: Not Reviewed Attestations Medical Necessity Statement*: Patient requires hospitalization for cellulitis bilateral extremities, requiring IV antibiotics, inpatient, greater than 2 midnights Diagnoses Chronic venous stasis dermatitis of both lower extremities I87.2 PVD (peripheral vascular disease) I73.9 Cellulitis L03.90 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
[2025-03-18 03:32] LABS: Add Urine Microscopic? NO
[2025-03-18 03:34] LABS: Glucose Urine UA Negative (Normal); Nitrate Urine Negative (Negative)
[2025-03-18] MEDS: pantoprazole 40 mg SDV IVP (03:47)
[2025-03-18 03:51] LABS: Specific Gravity, Urine 1.034 (1.005-1.030)
[2025-03-18 04:27] LABS: Charge for UA Resulting for Rev
--- OUTSIDE RECORDS SUMMARY | 2025-03-18 04:36 | XMS_ITS | Patient Health Record ---
Author Organization [facility] Address [address] [place] [address] Care Team Providers [employer] Nurse Name Role Phone Manfred Ordoñez Primary Care [...] Info Question Answer Notes [facility] Facility Marital status: single Problems Problem Type SNOMED Code ICD Code Onset Dates Problem Status W/U Status Risk Notes Problem Essential hypertension (37305740) Essential (primary) hypertension (I10) Active confirmed Problem Peripheral venous insufficiency (97464524) Venous insufficiency (chronic) (peripheral) (I87.2) Active confirmed Problem Lymphedema (010791208) Lymphedema, not elsewhere classified (I89.0) Active confirmed Problem Cellulitis of right lower limb (92245256993180359) Cellulitis of right lower limb (L03.115) Active confirmed Problem Pain of knee region (finding) (7123811072) Pain in unspecified knee (M25.569) Active confirmed Problem Malaise (211971266) Other malais e (R53.81) Active confirmed Problem Imaging of gastrointestinal tract abnormal (323170754) Abnormal findings on diagnostic imaging of other parts of digestive tract (R93.3) Active confirmed Problem Essential hypertension (55588998) Essential hypertension (I10) Active confirmed Problem Cardiomyopathy (95576356) Cardiomyopathy, unspecified type (I42.9) Active confirmed Problem Bilious vomiting (39997174) Bilious vomiting, unspecified whether nausea present (R11.14) Active confirmed Encounters Encounter Location Date Provider Diagnosis [facility] [address] [place] [address] 02/14/2025 [facility] [address] [place] [address] 03/07/2025 [facility] [address] [place] [address] 04/12/2024 Christopher Ordoñez Lymphedema, not elsewhere classified I89.0 ; Pain in unspecified knee M25.569 and Other malaise R53.81 [facility] [address] [place] [address] 05/10/2024 Christopher Ordoñez Lymphedema, not elsewhere classified I89.0 ; Essential hypertension I10 and Cardiomyopathy, unspecified type I42.9 [facility] [address] [place] [address] 06/07/2024 Christopher Ordoñez Lymphedema, not elsewhere classified I89.0 and Essential hypertension I10 [facility] [address] [place] [address] 07/12/2024 Christopher Ordoñez Lymphedema, not elsewhere classified I89.0 and Essential hypertension I10 [facility] [address] [place] [address] 08/23/2024 Christopher Ordoñez Lymphedema, not elsewhere classified I89.0 and Essential hypertension I10 [facility] [address] [place] [address] 09/13/2024 Christopher Ordoñez Lymphedema, not elsewhere classified I89.0 ; Pain in unspecified knee M25.569 ; Other malaise R53.81 and Essential hypertension I10 [facility] [address] [place] [address] 10/11/2024 Manfred Ordoñez Lymphedema, not elsewhere classified I89.0 ; Pain in unspecified knee M25.569 and Essential hypertension I10 [facility] [address] [place] [address] 11/08/2024 Manfred Ordoñez Lymphedema, not elsewhere classified I89.0 ; Cardiomyopathy, unspecified type I42.9 and Essential (primary) hypertension I10 [facility] [address] [place] [address] 12/06/2024 Manfred Ordoñez Lymphedema, not elsewhere classified I89.0 and Pain in unspecified knee M25.569 [facility] [address] [place] [address] 01/10/2025 Manfred Ordoñez Lymphedema, not elsewhere classified I89.0 ; Pain in unspecified knee M25.569 and Other malaise R53.81 [facility] [address] [facility] [facility] [address] [place] [address] 05/13/2024 [facility] [address] [facility] [address] [place] [address] 11/11/2024 [facility] [address] [facility] [address] [place] [address] 11/11/2024 [facility] Ordoñez [facility] [address] [facility] [facility] [address] [place] [address] 11/11/2024 [facility] Ordo[facility]ez [facility] [address] [address] [place] [address] 02/05/2025 Manfred Ordoñez Assessments Encounter Date Diagnosis [...] nursing staff. Vitals taken and recorded at [facility]. 11/08/2024 Lymphedema, not elsewhere classified (ICD-10 - I89.0) Medications were reviewed. I will continue without changes. Nursing staff is to contact me with any symptoms arising. Orders signed and documented with nursing staff. Vitals taken and recorded at [facility]. 12/06/2024 Lymphedema, not elsewhere classified (ICD-10 - I89.0) Medications were reviewed. I will continue without changes. Nursing staff is to contact me with any symptoms arising. Orders signed and documented with nursing staff. Vitals taken and recorded at [facility]. 01/10/2025 Lymphedema, not elsewhere classified (ICD-10 - I89.0) Medications were reviewed. I will continue without changes. Nursing staff is to contact me with any symptoms arising. Orders signed and documented with nursing staff. Vitals taken and recorded at [facility]. 01/10/2025 Pain in unspecified knee (ICD-10 - [...] nursing staff. Vitals taken and recorded at [facility]. 03/07/2025 Other Medications were reviewed. I will continue without changes. Nursing staff is to contact me with any symptoms arising. Orders signed and documented with nursing staff. Vitals taken and recorded at [facility]. 04/12/2024 Other Medications reviewed, orders signed and documented with nursing staff. Vitals taken and recorded at [facility]. 05/10/2024 Other Medications reviewed, orders signed and documented with nursing staff. Vitals taken and recorded at [facility]. 06/07/2024 Other Medications reviewed, orders signed and documented with nursing staff. Vitals taken and recorded at [facility]. 07/12/2024 Other Medications reviewed, orders signed and documented with nursing staff. Vitals taken and recorded at [facility]. 08/23/2024 Other Medications reviewed, orders signed and documented with nursing staff. Vitals taken and recorded at [facility]. 09/13/2024 Other Medications reviewed, orders signed and documented with nursing staff. Vitals taken and recorded at [facility]. Plan Of Treatment No Information Insurance Providers Payer Name Payer Address Payer Phone Subscriber Number Group Number Insured Name Patient Relationship to Insured Coverage Start Date Coverage End Date [place] Medicaid [address] [place] [address] [id number] [employer], Bg Self - patient is the [...]
--- NOTE | 2025-03-18 07:42 | PHA.VACGOAL ---
Vancomycin Goal - Goal Vancomycin Indication:: SSTI - Therapy Current therapy:: Other Antibiotic (Ceftriaxone 1gm q24h) Day of therpy:: Day [1]of [?] . Actual body weight (kg): 255 lb Dosing weight (kg): 115kg - Data Labs: WBC 8.97 10^3/uL (3.29-11.43) 03/17/25 22:05 RBC 4.58 10^6/uL (3.85-5.65) 03/17/25 22:05 Hgb 13.70 g/dL (11.27-16.99) 03/17/25 22:05 Hct 43.6 % (37-53) 03/17/25 22:05 MCV 95.2 fl (82-101) 03/17/25 22:05 MCH 29.9 pg (27-33) 03/17/25 22:05 MCHC 31.4 g/dL (30-55) 03/17/25 22:05 RDW 13.9 % (12.1-15.1) 03/17/25 22:05 Sodium 138 mmol/L (136-145) 03/17/25 22:05 Potassium 4.1 mmol/L (3.5-5.1) 03/17/25 22:05 Chloride 101 mmol/L (98-107) 03/17/25 22:05 Carbon Dioxide 29 mmol/L (22-29) 03/17/25 22:05 Anion Gap 12.1 (5-19) 03/17/25 22:05 BUN 18 mg/dL (6-20) 03/17/25 22:05 Creatinine 0.8 mg/dL (0.7-1.2) 03/17/25 22:05 GFR Calculation 98.9 mL/min (90-130) 03/17/25 22:05 Laboratory Tests 03/17/25 22:05 WBC 8.97 Creatinine 0.8 CrCl using adjusted body weight >120 mL/min. Pertinent tests:: Microbiology 03/17/25 22:05 Blood Blood Culture - Preliminary SPECIMEN COLLECTED 03/17/25 21:09 Blood Blood Culture - Preliminary SPECIMEN COLLECTED Last dialysis session:: N/A Drug administration history:: Vancomycin 1.75gm 03/17 @ 2234 Cefepime 2gm 03/17 @ 1 Treatment plan:: new consult Regimen:: Vancomycin 1.75gm q12h cancelled. Maintenance regimen ordered per protocol as 1.5gm q8h. Follow up:: Vancomycin steady state trough level ordered prior to the 5th dose of the maintenance regimen (03/19@ 1500). Additional Comments:: Mr. Mccauley's patient medical history includes bilateral chronic venous stasis dermatitis and a stage 2 decubitus ulcer on his coccyx.
[2025-03-18] MEDS: cefTRIAXone 1,000 mg SDV 1000 MG IVP (08:49)
[2025-03-18] MEDS: permethrin cream 5% 60 gm 1 APPLIC TOPICAL ×2 (09:21→10:36)
--- NOTE | 2025-03-18 14:08 | P.MISC_ITS ---
Miscellaneous Note Purpose of Documentation: Overnight labs and H&P reviewed. Patient with chronic venous stasis dermatitis, severe lymphedema with verrucous skin changes bilaterally, gets wound care at group home facility, currently admitted to the hospital overnight for lower extremity cellulitis. Does not appear to have any open wounds or ulcerations to warrant debridement at this time. Will add AmLactin for local application if available on formulary. Blood cultures pending. Continue IV antibiotics and monitor for improvement
[2025-03-18] MEDS: cefepime 2,000 mg SDV 2000 MG IVP ×2 (15:49→22:47)
[2025-03-19] MEDS: pantoprazole 40 mg SDV IVP (02:32)
[2025-03-19 04:00] VITALS: BP 117/69; PULSE 88; RESP 17; TEMP 36.8; O2SAT 94
[2025-03-19 05:02] LABS: Hematocrit 39.6 % (37-53); Hemoglobin 12.40 g/dL (11.27-16.99); Mean Corpuscular HGB Conc 31.3 g/dL (30-55); Mean Corpuscular Hemoglobin 30.0 pg (27-33); Mean Corpuscular Volume 95.7 fl (82-101); Nucleated Red Blood Cells % 0 %; Platelet Count 377 10^3/cmm (157-399); Red Blood Count 4.14 10^6/uL (3.85-5.65); White Blood Count 6.96 10^3/uL (3.29-11.43)
[2025-03-19] MEDS: ammonium lactate lotion 226 gm Btl 1 APPLIC TOPICAL ×2 (05:18→18:26)
[2025-03-19] MEDS: cefepime 2,000 mg SDV 2000 MG IVP ×3 (05:19→23:11)
[2025-03-19 05:28] LABS: Blood Urea Nitrogen 12 mg/dL (6-20); Calcium 8.4 mg/dL (8.5-10.5); Carbon Dioxide 27 mmol/L (22-29); Chloride 104 mmol/L (98-107); Creatinine Clr Calc Pharmacy 144.7496; Glucose 103 mg/dL (65-115); Osmolality Calculated 288 mOsm/kg (285-295); Sodium 139 mmol/L (136-145)
[2025-03-19 05:29] LABS: Anion Gap 12.4 (5-19); Potassium 4.4 mmol/L (3.5-5.1)
[2025-03-19 09:09] VITALS: BP 137/75; PULSE 87; RESP 18; TEMP 36.8; O2SAT 94
--- NOTE | 2025-03-19 09:26 | PC.CHAP ---
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 numerical control nesting operator visit [] Patient/Family/Request visit [] Outpatient visit [] Follow-up visit [] Physician referral [] Code/Alert [x] Routine visit [] Staff referral [] Actively dying [] Patient sleeping [] Family support [] [] Out of room [] Palliative care [] [] Receiving care in room [] Pre-surgical visit [] Trauma [] Long length of stay [] ICU visit [] Other: Relational/Emotional Strength [x] Patient feels connected with others/family/visitors/staff [] Distress [] Loneliness/isolation [] Abandonment Spirituality of Patient [x] Person of Karon [] Attends Taoism of their Karon [x] Believes in Prayer [] Reads Bible or Orthodox materials [] There are Spiritual issues to be addressed Recruiting Team Lead Interventions [x] Prayer [x] Active listening [] Non-anxious presence [x] Spiritual/emotional support [] Crisis/trauma care [] Spiritual counseling [] Bereavement support [] Provided bereavement packet [] Provided Bible/devotional materials [] Provided toy/stuffed animal, coloring book to patient or family member [] Provided Communion [] Anointing/[place] [] Salvation [x] Completed spiritual assessment [] Other: Impact on Illness or Injury [] Angry [] Fearful [] Anxious [] Often cries [] Exhaustion [] Unable to work [] Unable to attend yazidi [] Unable to walk/stand [] Unable to read [] Unable to drive [] Unable to eat/drink [] Unable to sleep [] Unable to be with family [] Patient intubated [] Other: Summary Time spent with patient 5 min
[2025-03-19 11:24] VITALS: BP 157/71; PULSE 79; RESP 17; TEMP 36.8; O2SAT 94
--- NOTE | 2025-03-19 14:13 | P.PN_ITS ---
Subjective 2 Subjective: No new complaints today. Thus far no change in cellulitis. Medications: Reviewed: Yes Vitals/I&O/Wt Last Vital Signs Temp 98.2 F 03/19/25 11:24 Pulse 79 03/19/25 11:24 Resp 17 03/19/25 11:24 BP 157/71 03/19/25 11:24 Pulse Ox 94 03/19/25 11:24 O2 Del Method Room Air 03/19/25 11:24 O2 Flow Rate 2 03/19/25 04:00 03/18/25 03/19/25 03/19/25 22:59 06:59 14:59 Intake Total 1020 / 1920 780 / 2700 780 / 780 Output Total 600 / 600 300 / 900 Balance 420 / 1320 480 / 1800 780 / 780 Weight last 48 hrs Weight 131.769 kg Weight 115.666 kg Weight 115.666 kg Physical Exam 2 Narrative: General: No acute distress, AO x3 HEENT: PERRLA, pupils bilaterally equal and reactive, pallors not present Chest: Normal vesicular breath sounds, no added sounds, equal good air entry bilaterally CVS: S1-S2 regular, no murmurs, no tachycardia, no gallops, no rubs Abdomen: Soft, nontender, no organomegaly, bowel sounds present Neuro: No focal deficits, no facial deformity, AO x3, power 5/5 in all limbs Extremities: B/L chronic lymphedema with stasis dermatitis Data 03/19/25 04:29 03/19/25 04:29 Micro: Microbiology 03/17/25 22:05 Blood Culture - Preliminary Blood NEGATIVE TO DATE 03/17/25 21:09 Blood Culture - Preliminary Blood NEGATIVE TO DATE A&P Assessment and plan 1. Chronic venous stasis dermatitis of both lower extremities: 2. PVD (peripheral vascular disease): 3. Cellulitis: 4. Infestation by fly larvae: 5. Decubitus ulcer of coccyx, stage 2: 6. Lymphedema: Plan: Cellulitis of bilateral extremities - Multiple areas of open excoriation, foul-smelling, - Found with maggots - Does have crusting/areas of bilateral extremities, with history of Irish scabies, followed by Dr. Velasquez - I looked at wound cares note and picture there seems to be a dramatic change between 12/05/2023 and 12/25/2024, I can see significant development of crusting, but it has been over a year since he was seen by wound care - Could this be a reoccurrence of his crusting scabies in addition to as above Plan - Will place in isolation - Order permethrin - Will have to call pharmacy in the morning to see about ordering ivermectin - Vancomycin - Cefepime - Will have to consult general surgery in the morning to see about debridement - Stage II decubitus ulcers continue repositioning - Wound care - Full code - Lovenox for DVT prophylaxis Mar 18, 2025 Overnight labs and H&P reviewed. Patient with chronic venous stasis dermatitis, severe lymphedema with verrucous skin changes bilaterally, gets wound care at senior care facility, currently admitted to the hospital overnight for lower extremity cellulitis. Does not appear to have any open wounds or ulcerations to warrant debridement at this time. Will add AmLactin for local application if available on formulary. Blood cultures pending. Continue IV antibiotics and monitor for improvement March 19, 2025 Plan to continue IV antibiotics today including cefepime and vancomycin. Continue local care with Lac-Hydrin. Monitor for improvement with current line of treatment. Thus far cellulitis appears to be unchanged. Resume lasix PDMP PDMP Reviewed: Not Reviewed Attestations 2 Medical Necessity Statement*: Continue need for IV antibiotics. Coding Level of Care Code Acute Code for Chg Fwd Diagnoses Chronic venous stasis dermatitis of both lower extremities I87.2 PVD (peripheral vascular disease) I73.9 Cellulitis L03.119 Laterality: unspecified laterality Site of cellulitis: extremity Site of cellulitis of extremity: lower extremity 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
[2025-03-19] MEDS: FUROsemide 10 mg/mL SDV 4mL 40 MG IVP (14:26)
[2025-03-19 16:33] VITALS: BP 174/66; PULSE 83; RESP 17; TEMP 36.9; O2SAT 95
[2025-03-19 20:00] VITALS: BP 139/71; PULSE 85; RESP 17; TEMP 36.2; O2SAT 90
[2025-03-20] VITALS (7 sets, daily range): BP systolic 112–177; BP diastolic 60–83; PULSE 78–89; RESP 15–18; TEMP 36.7–37.2; O2SAT 92–98
[2025-03-20] MEDS: FUROsemide 10 mg/mL SDV 4mL 40 MG IVP ×2 (02:31→15:52)
[2025-03-20] MEDS: pantoprazole 40 mg SDV IVP (02:31)
[2025-03-20 04:54] LABS: Hematocrit 42.7 % (37-53); Hemoglobin 13.40 g/dL (11.27-16.99); Mean Corpuscular HGB Conc 31.4 g/dL (30-55); Mean Corpuscular Hemoglobin 29.6 pg (27-33); Mean Corpuscular Volume 94.3 fl (82-101); Nucleated Red Blood Cells % 0 %; Platelet Count 390 10^3/cmm (157-399); Red Blood Count 4.53 10^6/uL (3.85-5.65); White Blood Count 7.11 10^3/uL (3.29-11.43)
[2025-03-20 05:15] LABS: Alanine Aminotransferase 8 U/L (0-41); Albumin Level 3.3 g/dL (3.5-5.2); Alkaline Phosphatase 93 U/L (40-130); Anion Gap 13.7 (5-19); Aspartate Amino Transferase 13 U/L (0-40); Blood Urea Nitrogen 10 mg/dL (6-20); Calcium 8.7 mg/dL (8.5-10.5); Carbon Dioxide 27 mmol/L (22-29); Chloride 103 mmol/L (98-107); Creatinine Clr Calc Pharmacy 135.7138; Globulin 4.5 g/dL (1.3-4.6); Glucose 111 mg/dL (65-115); Osmolality Calculated 290 mOsm/kg (285-295); Potassium 3.7 mmol/L (3.5-5.1); Sodium 140 mmol/L (136-145); Total Protein 7.8 g/dL (6.6-8.7)
[2025-03-20] MEDS: ammonium lactate lotion 226 gm Btl 1 APPLIC TOPICAL ×2 (05:44→17:41)
[2025-03-20] MEDS: cefepime 2,000 mg SDV 2000 MG IVP ×3 (05:44→23:10)
--- NOTE | 2025-03-20 22:36 | PM.PN ---
Subjective Subjective: denies any new complaints, LE edema and cellulitis appears to be improving today Medications: Reviewed: Yes Vitals/I&O/Wt Last Vital Signs Temp 98.9 F 03/20/25 19:40 Pulse 87 03/20/25 19:40 Resp 17 03/20/25 19:40 BP 144/80 03/20/25 19:40 Pulse Ox 92 03/20/25 19:40 O2 Del Method Room Air 03/20/25 19:40 O2 Flow Rate 2 03/19/25 04:00 03/20/25 03/20/25 03/20/25 06:59 14:59 22:59 Intake Total 588 / 588 120 / 708 Output Total 1520 / 2920 450 / 450 Balance -1520 / -1900 138 / 138 120 / 258 Weight last 48 hrs Weight 127.459 kg Weight 131.769 kg Physical Exam Narrative: General: No acute distress, AO x3 HEENT: PERRLA, pupils bilaterally equal and reactive, pallors not present Chest: Normal vesicular breath sounds, no added sounds, equal good air entry bilaterally CVS: S1-S2 regular, no murmurs, no tachycardia, no gallops, no rubs Abdomen: Soft, nontender, no organomegaly, bowel sounds present Neuro: No focal deficits, no facial deformity, AO x3, power 5/5 in all limbs Extremities: B/L chronic lymphedema with stasis dermatitis Data 03/20/25 04:33 03/20/25 04:33 A&P Assessment and plan 1. Chronic venous stasis dermatitis of both lower extremities: 2. PVD (peripheral vascular disease): 3. Cellulitis: 4. Infestation by fly larvae: 5. Decubitus ulcer of coccyx, stage 2: 6. Lymphedema: Plan: Cellulitis of bilateral extremities - Multiple areas of open excoriation, foul-smelling, - Found with maggots - Does have crusting/areas of bilateral extremities, with history of [place] scabies, followed by Dr. Velasquez - I looked at wound cares note and picture there seems to be a dramatic change between 12/05/2023 and 12/25/2024, I can see significant development of crusting, but it has been over a year since he was seen by wound care - Could this be a reoccurrence of his crusting scabies in addition to as above Plan - Will place in isolation - Order permethrin - Will have to call pharmacy in the morning to see about ordering ivermectin - Vancomycin - Cefepime - Will have to consult general surgery in the morning to see about debridement - Stage II decubitus ulcers continue repositioning - Wound care - Full code - Lovenox for DVT prophylaxis Mar 18, 2025 Overnight labs and H&P reviewed. Patient with chronic venous stasis dermatitis, severe lymphedema with verrucous skin changes bilaterally, gets wound care at care home facility, currently admitted to the hospital overnight for lower extremity cellulitis. Does not appear to have any open wounds or ulcerations to warrant debridement at this time. Will add AmLactin for local application if available on formulary. Blood cultures pending. Continue IV antibiotics and monitor for improvement March 19, 2025 Plan to continue IV antibiotics today including cefepime and vancomycin. Continue local care with Lac-Hydrin. Monitor for improvement with current line of treatment. Thus far cellulitis appears to be unchanged. Resume lasix March 20, 2025: Celulitis improving today. No further extension. Expected color changes with change to deep red today. Patient denies any pain. Anticipate transition to oral abx over the next 24 hrs if continues to improve. PDMP PDMP Reviewed: Not Reviewed Attestations Medical Necessity Statement*: > continued need for iv abx Coding Level of Care Code Acute Code for Chg Fwd Moderate MDM includes number and complexity of problems actively addressed during encounter, amount and/or complexity of data reviewed/ordered and described risk of complication, morbidity or mortality of management as documented Diagnoses Chronic venous stasis dermatitis of both lower extremities I87.2 PVD (peripheral vascular disease) I73.9 Cellulitis L03.119 Laterality: unspecified laterality Site of cellulitis: extremity Site of cellulitis of extremity: lower extremity 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
[2025-03-21] MEDS: FUROsemide 10 mg/mL SDV 4mL 40 MG IVP (03:19)
[2025-03-21] MEDS: pantoprazole 40 mg SDV IVP (03:20)
[2025-03-21 03:59] VITALS: BP 161/82; PULSE 88; RESP 15; TEMP 36.8; O2SAT 92
[2025-03-21 05:21] LABS: Hematocrit 44.6 % (37-53); Hemoglobin 14.20 g/dL (11.27-16.99); Mean Corpuscular HGB Conc 31.8 g/dL (30-55); Mean Corpuscular Hemoglobin 30.1 pg (27-33); Mean Corpuscular Volume 94.7 fl (82-101); Nucleated Red Blood Cells % 0 %; Platelet Count 400 10^3/cmm (157-399); Red Blood Count 4.71 10^6/uL (3.85-5.65); White Blood Count 8.12 10^3/uL (3.29-11.43)
[2025-03-21] MEDS: ammonium lactate lotion 226 gm Btl 1 APPLIC TOPICAL (05:31)
[2025-03-21] MEDS: cefepime 2,000 mg SDV 2000 MG IVP (05:31)
[2025-03-21 05:39] LABS: Alanine Aminotransferase 10 U/L (0-41); Albumin Level 3.5 g/dL (3.5-5.2); Alkaline Phosphatase 96 U/L (40-130); Anion Gap 17.8 (5-19); Aspartate Amino Transferase 16 U/L (0-40); Blood Urea Nitrogen 16 mg/dL (6-20); Calcium 8.9 mg/dL (8.5-10.5); Carbon Dioxide 26 mmol/L (22-29); Chloride 101 mmol/L (98-107); Creatinine Clr Calc Pharmacy 117.6405; Globulin 4.8 g/dL (1.3-4.6); Glucose 119 mg/dL (65-115); Osmolality Calculated 294 mOsm/kg (285-295); Potassium 3.8 mmol/L (3.5-5.1); Sodium 141 mmol/L (136-145); Total Protein 8.3 g/dL (6.6-8.7)
[2025-03-21 07:21] VITALS: BP 161/77; PULSE 83; RESP 16; TEMP 36.7; O2SAT 94
--- NOTE | 2025-03-21 11:19 | PC.NURSE ---
Report called to MIK Stubbs at [facility] and all questions answered.
[2025-03-21 11:24] VITALS: BP 140/75; PULSE 90; RESP 17; TEMP 36.7; O2SAT 93
[2025-03-21 15:07] VITALS: BP 126/71; PULSE 97; RESP 16; TEMP 36.9; O2SAT 92
[2025-03-21 15:46] VITALS: BP 126/71; PULSE 97; RESP 16; TEMP 36.9; O2SAT 92
--- NOTE | 2025-03-21 15:55 | P.DS_ITS ---
Discharge Providers Date of Admission: 03/18/25 00:21 Date of Discharge: March 21, 2025 Attending Provider at Admission: Leonel Rosas MD Attending Provider at Discharge: Kia Haskins MD Primary Care Provider: Gutierrez Ordoñez MD Diagnoses at Discharge Discharge Diagnosis 1. Chronic venous stasis dermatitis of both lower extremities: 2. PVD (peripheral vascular disease): 3. Cellulitis: 4. Infestation by fly larvae: 5. Decubitus ulcer of coccyx, stage 2: 6. Lymphedema: Reason for Visit Reason for Visit: r leg wound Hospital Course Hospital Course 59 year old male with a past medical history of crusted scabies, lymphedema, peripheral vascular disease, chronic venous stasis dermatitis, obesity, who presented to [facility] due to cellulitis affecting bilateral extremities, more pronounced on the left compared to the right side. There were 2 maggots that were found on his right lower extremity and were removed in the emergency room. Patient also has a stage II large decubitus ulcer. He has extensive changes of stasis dermatitis, verrucous skin folds which have made skin care extremely difficult for him. He received empiric IV antibiotic course with piperacillin/tazobactam and vancomycin for the cellulitis following which his lower extremities improved. Additionally he received IV Lasix to help with the swelling. Though his legs remain grossly swollen related to chronic lymphedema, the IV Lasix and IV antibiotics did result in reduced swelling and improving signs of cellulitis. At the time of discharge oral antibiotics have been transitioned to Augmentin and linezolid over the next 7 to 10 days. Patient is recommended to continue closely with wound care clinic/wound care at SNF and continue lymphedema wraps. Ammonium lactate was added to his skin regimen in view of significant dermatitis. Physical Exam Narrative: General: No acute distress, AO x3 HEENT: PERRLA, pupils bilaterally equal and reactive, pallors not present Chest: Normal vesicular breath sounds, no added sounds, equal good air entry bilaterally CVS: S1-S2 regular, no murmurs, no tachycardia, no gallops, no rubs Abdomen: Soft, nontender, no organomegaly, bowel sounds present Neuro: No focal deficits, no facial deformity, AO x3, power 5/5 in all limbs Discharge Data Studies Completed and Pending Pending at discharge Category Date Time Status Blood Culture Stat Lab 03/17/25 22:05 Results Laboratory Results WBC 8.12 10^3/uL (3.29-11.43) 03/21/25 05:03 RBC 4.71 10^6/uL (3.85-5.65) 03/21/25 05:03 Hgb 14.20 g/dL (11.27-16.99) 03/21/25 05:03 Hct 44.6 % (37-53) 03/21/25 05:03 MCV 94.7 fl (82-101) 03/21/25 05:03 MCH 30.1 pg (27-33) 03/21/25 05:03 MCHC 31.8 g/dL (30-55) 03/21/25 05:03 RDW 14.2 % (12.1-15.1) 03/21/25 05:03 Plt Count 400 10^3/cmm (157-399) H 03/21/25 05:03 MPV 9.1 fL (7.4-10.4) 03/21/25 05:03 Neut % (Auto) 64.9 % 03/21/25 05:03 Lymph % (Auto) 18.3 % 03/21/25 05:03 [place] % (Auto) 10.8 % 03/21/25 05:03 Eos % (Auto) 4.9 % 03/21/25 05:03 Baso % (Auto) 0.9 % 03/21/25 05:03 Neut # (Auto) 5.26 10^3/uL (1.8-7.7) 03/21/25 05:03 Lymph # (Auto) 1.5 10^3/uL (0.8-4.8) 03/21/25 05:03 [place] # (Auto) 0.9 10^3/uL (0.2-0.9) 03/21/25 05:03 Eos # (Auto) 0.4 10^3/uL (0.0-0.8) 03/21/25 05:03 Baso # (Auto) 0.1 10^3/uL (0.0-0.1) 03/21/25 05:03 Nucleated RBC % (auto) 0 % 03/21/25 05:03 Nucleated RBCs # 0.0 /100WBC 03/21/25 05:03 ESR 36 mm/hr (0-10) H 03/18/25 00:00 Sodium 141 mmol/L (136-145) 03/21/25 05:03 Potassium 3.8 mmol/L (3.5-5.1) 03/21/25 05:03 Chloride 101 mmol/L (98-107) 03/21/25 05:03 Carbon Dioxide 26 mmol/L (22-29) 03/21/25 05:03 Anion Gap 17.8 (5-19) 03/21/25 05:03 BUN 16 mg/dL (6-20) 03/21/25 05:03 Creatinine 0.9 mg/dL (0.7-1.2) 03/21/25 05:03 GFR Calculation 86.4 mL/min (90-130) L 03/21/25 05:03 Glucose 119 mg/dL (65-115) H 03/21/25 05:03 POC Glucose 109 mg/dL (70-110) 03/18/25 10:40 Calculated Osmolality 294 mOsm/kg (285-295) 03/21/25 05:03 Lactic Acid 1.4 mmol/L (0.5-2.2) 03/17/25 22:05 Calcium 8.9 mg/dL (8.5-10.5) 03/21/25 05:03 Total Bilirubin 1.0 mg/dL (0.15-1.2) 03/21/25 05:03 AST 16 U/L (0-40) 03/21/25 05:03 ALT 10 U/L (0-41) 03/21/25 05:03 Alkaline Phosphatase 96 U/L (40-130) 03/21/25 05:03 C-Reactive Protein 27.3 mg/L (0.0-4.9) H 03/17/25 22:05 Total Protein 8.3 g/dL (6.6-8.7) 03/21/25 05:03 Albumin 3.5 g/dL (3.5-5.2) 03/21/25 05:03 Globulin 4.8 g/dL (1.3-4.6) H 03/21/25 05:03 Urine Color Yellow (Yellow) 03/18/25 03:07 Urine Appearance Clear (CLEAR) 03/18/25 03:07 Urine pH 5.5 (5-7) 03/18/25 03:07 Ur Specific [place] 1.034 (1.005-1.030) H 03/18/25 03:07 Urine Protein Trace (Negative) A 03/18/25 03:07 Urine Glucose (UA) Negative (Normal) 03/18/25 03:07 Urine Ketones Trace (Negative) 03/18/25 03:07 Urine Blood Negative (Negative) 03/18/25 03:07 Urine Nitrate Negative (Negative) 03/18/25 03:07 Urine Bilirubin Negative (Negative) 03/18/25 03:07 Urine Urobilinogen 1.0 mg/dL (Negative) 03/18/25 03:07 Ur Leukocyte Esterase Negative (Negative) 03/18/25 03:07 Amorphous Sediment Not Reportable 03/18/25 03:07 Vancomycin Trough 17.8 ug/mL (10-15) H 03/20/25 04:33 Vitals Last Vital Signs Temp 98.4 F 03/21/25 15:46 Pulse 97 03/21/25 15:46 Resp 16 03/21/25 15:46 BP 126/71 03/21/25 15:46 Pulse Ox 92 03/21/25 15:46 O2 Del Method Room Air 03/21/25 15:07 O2 Flow Rate 2 03/19/25 04:00 Discharge Plan Discharge Patient Disposition: Xfer SNF Condition: Stable Prescriptions: New linezolid [Zyvox] 600 mg tablet 600 mg PO BID 10 Days Qty: 20 0RF amoxicillin-pot clavulanate 875-125 mg tablet 1 tab PO BID 10 Days Qty: 20 0RF Continued aspirin [Adult Aspirin Regimen] 81 mg tablet,delayed release (DR/EC) 81 mg PO DAILY amlodipine 10 mg tablet 10 mg PO DAILY famotidine 20 mg tablet 20 mg PO BID acetaminophen [Tylenol] 325 mg tablet 650 mg PO QID PRN (Reason: Pain/temp) magnesium hydroxide [Milk of Magnesia] 400 mg/5 mL suspension 30 ml PO Q6H PRN (Reason: Constipation) escitalopram oxalate 10 mg tablet 10 mg PO DAILY pregabalin [Lyrica] 100 mg capsule 100 mg PO BID furosemide 40 mg tablet 40 mg PO DAILY Qty: 30 5RF ammonium lactate [AmLactin] 12 % Lotion See Rx Instructions .ROUTE .COMPLEX Rx Instructions: Apply to bilateral lower extremities topically ever day shift. lisinopril 10 mg Tablet 10 mg PO DAILY Discontinued doxycycline hyclate 100 mg Tablet 100 mg PO BID Discharge Order = DC NOW: Discharge Order (Routine); Ordered 03/21/25 Ordered By: Kia Haskins Referrals: [facility] [Outside] Gutierrez Ordoñez MD [Primary Care Provider, Internal Medicine] Discharge Diet: Low Salt Discharge Activity: Limit activity as instructed Patient Instructions: Opioid Safety, Patient Portal & [place] Instructions Discharge Attestations Time Spent in Discharge Care*: greater than 30 min Status at Discharge: Cognitive status at discharge: cognitively intact , Behavioral status at discharge: cooperative , Quality Metrics Clinical Quality Measures [ No reported AMI, CVA or VTE this stay] Coding Level of Care Code Acute Code for Chg Fwd Diagnoses Chronic venous stasis dermatitis of both lower extremities I87.2 PVD (peripheral vascular disease) I73.9 Cellulitis L03.119 Laterality: unspecified laterality Site of cellulitis: extremity Site of cellulitis of extremity: lower extremity 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
== END 2025-03-21 15:46 | disposition skilled nursing facility (03) | DRG 603 ==
LOC: ER 03-18 00:13 → ER IP 03-18 04:34 → MEDSURG 03-18 06:45
PROVIDERS: Admitting Provider Family Medicine; Emergency Provider Physician Assistant; PCP Internal Medicine; Visit Provider Student in an Organized Health Care Education/Training Program
DX: L03.116 Cellulitis of left lower limb (principal); I50.40 Unspecified combined systolic (congestive) and diastolic (congestive) heart failure; L03.115 Cellulitis of right lower limb; I87.2 Venous insufficiency (chronic) (peripheral); I73.9 Peripheral vascular disease, unspecified; B87.1 Wound myiasis; L89.152 Pressure ulcer of sacral region, stage 2; B86 Scabies; E66.9 Obesity, unspecified; F32.A Depression, unspecified; I11.0 Hypertensive heart disease with heart failure; Z68.39 Body mass index [BMI] 39.0-39.9, adult; Z79.82 Long term (current) use of aspirin
CPT/HCPCS: 36415; 36416; 80048; 80053; 80202; 81003; 82962; 83605; 85025; 85651; 86140; 87040; 94664; 96365; 96372; 96375; 99285; J0692; J0696; J1650; J1938; J2470; J3372; J3373; J9999

== ENCOUNTER → 2025-06-03 09:14 | Outpatient (BNVA) | payer MEDICAID, SELFPAY | PROVIDERS: PCP Internal Medicine; Visit Provider Dermatology | DX: I89.0 Lymphedema, not elsewhere classified (principal); I87.2 Venous insufficiency (chronic) (peripheral); R60.0 Localized edema; L21.8 Other seborrheic dermatitis | CPT/HCPCS: 99214 ==

== ENCOUNTER → 2025-07-03 09:13 | Outpatient (BNVA) | payer MEDICAID, SELFPAY | PROVIDERS: PCP Internal Medicine; Visit Provider Dermatology | DX: I89.0 Lymphedema, not elsewhere classified (principal); I87.2 Venous insufficiency (chronic) (peripheral); R60.0 Localized edema; L21.8 Other seborrheic dermatitis | CPT/HCPCS: 99214 ==